=== PATIENT | female | born 1975 | race Native Hawaiian/Other Pacific Islander ===

== ENCOUNTER 2020-11-25 01:00 | Emergency (ER) | payer BC, SELFPAY ==
--- NOTE | ~2020-11-25 | CT_ITS ---
EXAMINATION: CT HEAD WITHOUT CONTRAST CLINICAL INFORMATION: numbness COMPARISON: None TECHNIQUE: Contiguous axial imaging was performed from the skull base to vertex without intravenous administration of contrast. This CT examination was performed using dose optimization techniques as appropriate, variously including the following: *Automated exposure control *Adjustment of mA and/or kV according to patient size (this includes techniques or standardized protocols for targeted exams where dose is matched to indication/reason for exam; i.e. extremities or head) *Use of iterative reconstruction technique DLP: 733 mGy-cm FINDINGS: There is no evidence of acute intracranial hemorrhage or territorial infarction. No abnormal mass effect or midline shift is seen. [place] to white matter differentiation is well preserved. No extra-axial fluid collections are identified. The ventricles are normal in size. There is no abnormal attenuation within the brain parenchyma. The osseous structures and soft tissues are normal. The mastoid air cells and visualized portions of the paranasal sinuses are well aerated. CT/CT head/brain wo con IMPRESSION: No acute intracranial pathology.
[2020-11-25 01:09] VITALS: BP 140/67; PULSE 99; RESP 18; TEMP 36.4; O2SAT 100; BMI 34.7
[2020-11-25 01:32] VITALS: BP 136/81; PULSE 93; RESP 18; TEMP 36.4; O2SAT 100
--- NOTE | 2020-11-25 02:08 | PC.NURSE ---
This RN at bedside with MD for primary eval. Pt reports intermittent left sided numbness for 1 month, worsening this last week causing her some anxiety today. Pt denies being evaluated by MD for numbness. Neuro exam unremarkable, pt speaking full clear sentences, ambulating with a banuelos/steady gait to the bathroom to provide urine sample. Continue to monitor.
--- NOTE | 2020-11-25 02:10 | ECG_ITS ---
Test Reason : NUMBNESS Blood Pressure : / mmHG Vent. Rate : 090 BPM Atrial Rate : 090 BPM P-R Int : 162 ms QRS Dur : 086 ms QT Int : 384 ms P-R-T Axes : 043 -06 014 degrees QTc Int : 469 ms Normal sinus rhythm Minimal voltage criteria for LVH, may be normal variant Borderline ECG When compared with ECG of 21-JUL-2019 05:34, No significant change was found Referred By: Micaela Sparks Electronically Signed By:DEONDRE HAY MD
[2020-11-25 02:24] LABS: Basophils Absolute Auto 0.1 X10*3/uL (0.0-0.2); Basophils Percent Auto 0.5 % (0-2); Eosinophils Absolute Auto 0.1 X10*3/uL (0.0-0.4); Eosinophils Percent Auto 1.4 % (0-4); Hematocrit 36.8 % (37-47); Hemoglobin 11.9 g/dl (12.0-16.0); Imm Gran Abs Auto 0.02 X10*3/uL (0.00-0.03); Imm Gran Pct Auto 0.2 % (0.0-0.4); Lymphocytes Absolute Auto 3.5 X10*3/uL (1.2-4.9); Lymphocytes Percent Auto 35.4 % (20-40); MANUAL DIFF FLAG NO; Mean Corpuscular HGB Conc 32.3 g/dl (31.0-35.0); Mean Corpuscular Hemoglobin 28.7 pg (27.0-33.0); Mean Corpuscular Volume 88.7 fL (80-98); Monocytes Absolute Auto 0.5 X10*3/uL (0.1-1.2); Monocytes Percent Auto 5.1 % (2-11); Neutrophils Absolute Auto 5.6 X10*3/uL (2.0-8.3); Neutrophils Percent Auto 57.4 % (45-73); Platelet Count 306 X10*3/uL (160-400); Red Blood Count 4.15 X10*6/uL (4.20-5.50); Red Cell Distribution Width 13.2 % (11.0-16.0); White Blood Count 9.8 X10*3/uL (4.8-10.8)
[2020-11-25 02:25] LABS: Glucose Urine UA NEG (NEG); Leukocyte Esterase Urine NEG (NEG); Nitrite Urine NEG (NEG); Specific Gravity - Urine 1.015 (1.005-1.025); Urine Blood TRACE (NEG); Urine Ketones NEG (NEG); Urine Protein NEG (NEG-TRACE)
[2020-11-25 02:26] LABS: Appearance Urine CLEAR; Color Urine YELLOW
--- NOTE | 2020-11-25 02:26 | PC.NURSE ---
IV established, labs and urine obtained and sent. EKG obtained by this RN. Pt resting in bed, reporting numbness to left hand and fingers only at this time, denies pain. VSS. Call remy within reach, continue to monitor.
[2020-11-25 02:27] VITALS: PULSE 91; RESP 16; O2SAT 96
[2020-11-25 02:29] LABS: Bacteria Urine 1+ /LPF; Mucus Urine 1+ /LPF; Squamous Epithelial Cell Urine 1+ /LPF
[2020-11-25 02:57] LABS: Anion Gap 13 (12-20); Blood Urea Nitrogen 13 mg/dL (9-16); Calcium 9.6 mg/dL (8.4-10.2); Carbon Dioxide 27 mmol/L (22-29); Chloride 102 mmol/L (96-108); Creatinine Clr Calc Pharmacy 102.3; Estimated Glomerular Filt Rate > 60; Glucose Random 118 mg/dL (60-115); Potassium 3.6 mmol/L (3.3-5.1); Sodium 138 mmol/L (135-145)
--- NOTE | 2020-11-25 03:07 | ED.GENADULT ---
HPI - General Adult General Chief complaint: General Medical Stated complaint: PANIC ATTACK Time Seen by Provider: 11/25/20 02:09 Related Data Home Medications Medication Instructions Recorded Confirmed No Known Home Meds 11/25/20 11/25/20 Allergies Allergy/AdvReac Type Severity Reaction Status Date / Time latex [LATEX] Allergy Intermediate ITCHY NO Verified 11/25/20 01:08 SOB PMFSH Past Medical History Medical History (Updated 11/25/20 @ 03:28 by Micaela Sparks MD) delivery delivered Surgical History (Updated 11/25/20 @ 01:15 by Gurinder Leonard RN) H/O: hysterectomy Social History Social History Alcohol intake: never Smoking Status: Never smoker Use of substances other than those prescribed or required for medical reasons: No Advance Directives: No Advance Directives Information Provided: No Physical Exam Vital Signs: Vital Signs: Last Vital Signs Temp 97.6 F 11/25/20 01:32 Pulse 91 11/25/20 02:27 Resp 16 11/25/20 02:27 BP 136/81 11/25/20 01:32 Pulse Ox 96 11/25/20 02:27 Body Mass Index 34.7 NIH Stroke Scale Internal: Initial- Upon Arrival Level of Consciousness: Alert Level of Consciousness Questions: Answers both questions correctly Level of Consciousness Commands: Performs both tasks correctly Best Gaze: Normal Visual: No visual loss Facial Palsy: Normal Motor Arm (Right): No drift Motor Arm (Left): No drift Motor Leg (Right): No drift Motor Leg (Left): No drift Limb Ataxia: Absent Sensory: Normal Best Language: No aphasia Dysarthia: Normal Extinction and Inattention: No abnormality Score: 0 Medical Decision Making MDM Narrative Medical decision making narrative: Patient's tingling as been ongoing for a month. Question etiology. Patient neurologically intact. NIH stroke scale was 0. CT scan of the head was negative. Electrolytes unremarkable. Will have patient follow-up with neurology on an outpatient basis. Currently in stable condition. Lab Data Result diagrams: 11/25/20 02:14 11/25/20 02:14 Labs: Lab Results 11/25/20 11/25/20 11/25/20 Range/Units 02:14 02:14 02:14 WBC 9.8 (4.8-10.8) X10*3/uL RBC 4.15 L (4.20-5.50) X10*6/uL Hgb 11.9 L (12.0-16.0) g/dl Hct 36.8 L (37-47) % MCV 88.7 (80-98) fL MCH 28.7 (27.0-33.0) pg MCHC 32.3 (31.0-35.0) g/dl RDW 13.2 (11.0-16.0) % Plt Count 306 (160-400) X10*3/uL MPV 11.0 (9.4-12.3) fL Immature Gran % (Auto) 0.2 (0.0-0.4) % Neut % (Auto) 57.4 (45-73) % Lymph % (Auto) 35.4 (20-40) % [place] % (Auto) 5.1 (2-11) % Eos % (Auto) 1.4 (0-4) % Baso % (Auto) 0.5 (0-2) % Lymph # (Auto) 3.5 (1.2-4.9) X10*3/uL [place] # (Auto) 0.5 (0.1-1.2) X10*3/uL Eos # (Auto) 0.1 (0.0-0.4) X10*3/uL Baso # (Auto) 0.1 (0.0-0.2) X10*3/uL Abs Immat Gran (auto) 0.02 (0.00-0.03) X10*3/uL Absolute Neuts (auto) 5.6 (2.0-8.3) X10*3/uL Absolute Nucleated RBC 0.000 (0.0-0.012) X10*3/uL Nucleated RBC % (auto) 0.0 (0.0-0.2) /100WBC Sodium 138 (135-145) mmol/L Potassium 3.6 (3.3-5.1) mmol/L Chloride 102 (96-108) mmol/L Carbon Dioxide 27 (22-29) mmol/L Anion Gap 13 (12-20) BUN 13 (9-16) mg/dL Creatinine 0.70 (0.5-1.4) mg/dL Estim Creat Clear Calc 102.3 Estimated GFR > 60 Random Glucose 118 H (60-115) mg/dL Calcium 9.6 (8.4-10.2) mg/dL Magnesium 2.0 (1.6-2.6) mg/dL Urine Color YELLOW Urine Appearance CLEAR Urine pH 6.0 (5.0-8.0) Ur Specific [place] 1.015 (1.005-1.025) Urine Protein NEG (NEG-TRACE) MG/DL Urine Glucose (UA) NEG (NEG) MG/DL Urine Ketones NEG (NEG) MG/DL Urine Blood TRACE (NEG) Urine Nitrite NEG (NEG) Ur Leukocyte Esterase NEG (NEG) Urine RBC 1-4 (0) /HPF Urine WBC 1-4 (0-4) /HPF Ur Squamous Epith Cells 1+ /LPF Urine Bacteria 1+ /LPF Urine Mucus 1+ /LPF Discharge Plan Discharge Clinical Impression: Anxiety, Neurapraxia Patient Disposition: Home, Self-Care Instructions: Anxiety (ED), Neurapraxia (ED) Prescriptions: No Action No Known Home Meds RF: 0 Referrals: Kimberly Hernandez MD [Physician] - 2 days
[2020-11-25 03:40] VITALS: BP 136/81; PULSE 81; RESP 18; O2SAT 98
== END 2020-11-25 03:40 | disposition home or self-care (01) ==
PROVIDERS: Emergency Provider Emergency Medicine Emergency Medical Services
DX: S64.92XA Injury of unspecified nerve at wrist and hand level of left arm, initial encounter (principal); X58.XXXA Exposure to other specified factors, initial encounter; F41.9 Anxiety disorder, unspecified; Y93.9 Activity, unspecified; Y92.9 Unspecified place or not applicable; Y99.9 Unspecified external cause status
CPT/HCPCS: 36415; 70450; 80048; 81001; 83735; 85025; 93005; 99284

== ENCOUNTER 2020-12-25 07:12 | Emergency (ER) | payer BC, SELFPAY ==
--- NOTE | ~2020-12-25 | CT_ITS ---
EXAMINATION: CT ABDOMEN AND PELVIS WITH CONTRAST CLINICAL INFORMATION: Right upper quadrant and epigastric pain. History of pancreatitis. COMPARISON: Several priors. Most recent of 12/23/19. TECHNIQUE: Multidetector volumetric images were obtained from the superior aspect of the liver through the pubic symphysis following administration 85 mL of Omnipaque 350 intravenous contrast. Sagittal and coronal reformatted images were obtained on the technologist's workstation. Oral contrast: No This CT examination was performed using dose optimization techniques as appropriate, variously including the following: *Automated exposure control *Adjustment of mA and/or kV according to patient size (this includes techniques or standardized protocols for targeted exams where dose is matched to indication/reason for exam; i.e. extremities or head) *Use of iterative reconstruction technique DLP: 890 mGy-cm FINDINGS: LUNG BASES: The visualized lung bases are unremarkable. LIVER, GALLBLADDER, AND BILIARY TREE: Diffuse low-attenuation the liver is consistent with hepatic steatosis. The liver is mildly enlarged. No focal lesion demonstrated. There has been previous cholecystectomy. Mildly dilated CBD is unchanged and consistent with prior cholecystectomy. PANCREAS: Unremarkable. There is normal parenchymal enhancement. No peripancreatic fluid. SPLEEN: Unremarkable. ADRENAL GLANDS: There is a focal lesion of the lateral limb of the left adrenal gland measuring 1.2 cm. This measures soft tissue density. The adrenal glands are otherwise unremarkable. KIDNEYS AND URETERS: The kidney has a relatively horizontal lie. The kidneys otherwise are normal in size and appearance with normal attenuation. No hydronephrosis or calculi. No focal parenchymal lesions. BLADDER: Unremarkable. GASTROINTESTINAL TRACT: The stomach and duodenum are unremarkable. No abnormality of the small bowel or mesentery is demonstrated. There is colonic diverticular disease. No evidence for acute diverticulitis. The colon is otherwise unremarkable. The appendix is normal. ABDOMINAL WALL: There is a small fat-containing left femoral hernia. There is diastases of the rectus muscle without significant hernia. LYMPH NODES: Normal. VASCULAR: Unremarkable. PELVIC VISCERA: There is been previous hysterectomy. The adnexa are unremarkable. No free fluid. OSSEOUS STRUCTURES: Unremarkable. CT/CT abdomen pelvis w con IMPRESSION: 1. Hepatic steatosis. Mild hepatomegaly. 2. Unremarkable appearance of the pancreas. No radiographic changes of pancreatitis. 3. Small indeterminate left adrenal lesion. Suggest dedicated triphasic CT scan or MRI in further assess. 4. Colonic diverticular disease with no evidence for acute diverticulitis.
[2020-12-25 07:25] VITALS: BP 136/80; PULSE 89; RESP 15; TEMP 36.8; O2SAT 100; BMI 34.7
--- NOTE | 2020-12-25 07:57 | ED.ABDPAIN ---
HPI - Abdominal Pain General Chief Complaint: Abdominal Pain Stated Complaint: UPPER ABD PAIN Time Seen by Provider: 12/25/20 07:45 Source: patient Mode of arrival: ambulatory Limitations: no limitations History of Present Illness HPI narrative: 45 yo female 3 days of epigastric pain radiating to back hx of pancreatitis but that was related to stones from GB and she is s/p lap ronaldo c/o nausea and diarrhea, feels similar to her prior pancreatitis MD elicited complaint: abdominal pain Pertinent past history: other (pancreatitis) Onset (ago): day(s) (3) Pain Consistency: constant Location: epigastric Severity: moderate Quality: stabbing Radiation: back Migration to: no migration Exacerbating factors: eating and movement Relieving factors: nothing Context: history of similar episodes Associated symptoms: nausea and diarrhea Related Data Previous Rx's Medication Instructions Recorded omeprazole 40 mg PO DAILY 14 Days #14 cap 12/25/20 ondansetron 4 mg PO Q8H PRN #20 tab 12/25/20 Allergies Allergy/AdvReac Type Severity Reaction Status Date / Time latex [LATEX] Allergy Intermediate ITCHY NO Verified 11/25/20 01:08 SOB Review of Systems Review of Systems Constitutional : No Weight loss, No Fever, No Chills ENT/Mouth : No sore throat, No Rhinorrhea Eyes: No Swelling, No Redness Cardiovascular : No Chest Pain, No SOB, NoEdema Respiratory : No Cough, No Sputum, No Wheezing Gastrointestinal : Positive Nausea, no Vomiting, positive Diarrhea, positive abdominal Pain, No Hematochezia, No Melena Genitourinary : No Dysuria, No Urinary Frequency, No Hematuria, No Urgency Musculoskeletal : No joint pain, No Myalgias, No Joint Swelling Skin : No Skin Lesions, No rash Neuro : No Weakness, No Numbness, No Dizziness, No Headache Psych : No Anxiety/Panic, No Depression Heme/Lymph: No Bruising, No Lymphadenopathy Endocrine : No Polyuria, No Polydipsia All other systems reviewed and are negative. Physical Exam Vital Signs: Vital Signs: Last Vital Signs Temp 99.0 F 12/25/20 10:52 Pulse 77 12/25/20 10:52 Resp 18 12/25/20 10:52 BP 125/73 12/25/20 10:52 Pulse Ox 100 12/25/20 10:52 Body Mass Index 34.7 Appearance: Alert. Oriented X3. No acute distress. Eyes: Pupils equal, round and reactive to light. ENT: Pharynx normal. Neck: Normal inspection. Neck supple. CVS: Normal heart rate and rhythm. Pulses normal. Respiratory: No respiratory distress. Breath sounds normal. Abdomen: Soft and moderate epigastric ttp no rebound, mild vol guarding Skin: Skin warm and dry. Normal skin color. Normal skin turgor. Extremities: No lower extremity edema. No calf ttp Neuro: Oriented X 3. No motor deficit. No sensory deficit. Course Course Course Narrative: stable labs, negative CT scan at this time, anticipate DC home will attempt GI cocktail. feels much better with GI cocktail will place on PPI for 2 weeks discussed possible h pylori testing with PCP MDM - Abdominal Pain MDM Narrative Medical decision making narrative: 45 yo female with hx of pancreatitis s/p lap ronaldo comes in with 3 days of nausea, diarrhea and epigastric pain radiating to her back feels similar to her prior pancreatitis - will obtain labs, CT scan for pancreatitis retained stone Differential Diagnosis Differential diagnosis: Likely abdominal pain, gastritis and pancreatitis; Unlikely aortic dissection and acute appendicitis Lab Data Result diagrams: 12/25/20 08:02 12/25/20 08:02 Labs: Lab Results 12/25/20 12/25/20 12/25/20 Range/Units 08:02 08:02 08:02 WBC 7.9 (4.8-10.8) X10*3/uL RBC 4.54 (4.20-5.50) X10*6/uL Hgb 13.1 (12.0-16.0) g/dl Hct 39.6 (37-47) % MCV 87.2 (80-98) fL MCH 28.9 (27.0-33.0) pg MCHC 33.1 (31.0-35.0) g/dl RDW 12.7 (11.0-16.0) % Plt Count 317 (160-400) X10*3/uL MPV 11.4 (9.4-12.3) fL Immature Gran % (Auto) 0.4 (0.0-0.4) % Neut % (Auto) 54.9 (45-73) % Lymph % (Auto) 37.3 (20-40) % [place] % (Auto) 4.8 (2-11) % Eos % (Auto) 2.0 (0-4) % Baso % (Auto) 0.6 (0-2) % Lymph # (Auto) 3.0 (1.2-4.9) X10*3/uL [place] # (Auto) 0.4 (0.1-1.2) X10*3/uL Eos # (Auto) 0.2 (0.0-0.4) X10*3/uL Baso # (Auto) 0.1 (0.0-0.2) X10*3/uL Abs Immat Gran (auto) 0.03 (0.00-0.03) X10*3/uL Absolute Neuts (auto) 4.4 (2.0-8.3) X10*3/uL Absolute Nucleated RBC 0.000 (0.0-0.012) X10*3/uL Nucleated RBC % (auto) 0.0 (0.0-0.2) /100WBC Hold Blue Top SEE NOTE Sodium 140 (135-145) mmol/L Potassium 4.2 (3.3-5.1) mmol/L Chloride 104 (96-108) mmol/L Carbon Dioxide 25 (22-29) mmol/L Anion Gap 15 (12-20) BUN 13 (9-16) mg/dL Creatinine 0.71 (0.5-1.4) mg/dL Estim Creat Clear Calc 100.8 Estimated GFR > 60 Random Glucose 124 H (60-115) mg/dL Calcium 10.0 (8.4-10.2) mg/dL Magnesium 1.8 (1.6-2.6) mg/dL Total Bilirubin 0.5 (0.0-1.0) mg/dL Direct Bilirubin < 0.2 (0.0-0.5) mg/dL AST 16 (5-31) U/L ALT 21 (0-31) U/L Alkaline Phosphatase 95 (39-117) U/L Total Protein 7.7 (6.5-8.0) g/dL Albumin 4.5 (3.5-5.0) g/dL Lipase 19 (8-78) U/L Urine Color Urine Appearance Urine pH (5.0-8.0) Ur Specific [place] (1.005-1.025) Urine Protein (NEG-TRACE) MG/DL Urine Glucose (UA) (NEG) MG/DL Urine Ketones (NEG) MG/DL Urine Blood (NEG) Urine Nitrite (NEG) Ur Leukocyte Esterase (NEG) Urine Test (NEGATIVE) 12/25/20 12/25/20 Range/Units 08:02 08:02 WBC (4.8-10.8) X10*3/uL RBC (4.20-5.50) X10*6/uL Hgb (12.0-16.0) g/dl Hct (37-47) % MCV (80-98) fL MCH (27.0-33.0) pg MCHC (31.0-35.0) g/dl RDW (11.0-16.0) % Plt Count (160-400) X10*3/uL MPV (9.4-12.3) fL Immature Gran % (Auto) (0.0-0.4) % Neut % (Auto) (45-73) % Lymph % (Auto) (20-40) % [place] % (Auto) (2-11) % Eos % (Auto) (0-4) % Baso % (Auto) (0-2) % Lymph # (Auto) (1.2-4.9) X10*3/uL [place] # (Auto) (0.1-1.2) X10*3/uL Eos # (Auto) (0.0-0.4) X10*3/uL Baso # (Auto) (0.0-0.2) X10*3/uL Abs Immat Gran (auto) (0.00-0.03) X10*3/uL Absolute Neuts (auto) (2.0-8.3) X10*3/uL Absolute Nucleated RBC (0.0-0.012) X10*3/uL Nucleated RBC % (auto) (0.0-0.2) /100WBC Hold Blue Top Sodium (135-145) mmol/L Potassium (3.3-5.1) mmol/L Chloride (96-108) mmol/L Carbon Dioxide (22-29) mmol/L Anion Gap (12-20) BUN (9-16) mg/dL Creatinine (0.5-1.4) mg/dL Estim Creat Clear Calc Estimated GFR Random Glucose (60-115) mg/dL Calcium (8.4-10.2) mg/dL Magnesium (1.6-2.6) mg/dL Total Bilirubin (0.0-1.0) mg/dL Direct Bilirubin (0.0-0.5) mg/dL AST (5-31) U/L ALT (0-31) U/L Alkaline Phosphatase (39-117) U/L Total Protein (6.5-8.0) g/dL Albumin (3.5-5.0) g/dL Lipase (8-78) U/L Urine Color YELLOW Urine Appearance CLEAR Urine pH 6.0 (5.0-8.0) Ur Specific [place] >= 1.030 H (1.005-1.025) Urine Protein NEG (NEG-TRACE) MG/DL Urine Glucose (UA) NEG (NEG) MG/DL Urine Ketones NEG (NEG) MG/DL Urine Blood NEG (NEG) Urine Nitrite NEG (NEG) Ur Leukocyte Esterase NEG (NEG) Urine Test NEGATIVE (NEGATIVE) Discharge Plan Discharge Clinical Impression: Abdominal pain Qualifiers: Abdominal location: epigastric Qualified Code(s): R10.13 - Epigastric pain Gastritis Qualifiers: Gastritis type: unspecified gastritis Chronicity: acute Gastritis bleeding: without bleeding Qualified Code(s): K29.00 - Acute gastritis without bleeding Patient Disposition: Home, Self-Care Instructions: Gastritis (ED) Additional Instructions: return to ED for any worsening symptoms or concerns if this continues please get h pylori testing Prescriptions: New ondansetron 4 mg tablet,disintegrating 4 mg PO Q8H PRN (Reason: nausea and vomiting) Qty: 20 RF: 0 omeprazole 40 mg capsule,delayed release(DR/EC) 40 mg PO DAILY 14 Days Qty: 14 RF: 0 Referrals: Physician,None [Primary Care Provider] - 1 week (if not better) [facility], [facility] Past Medical History Attestation statement: The following information was validated with the patient. Medical History delivery delivered Pancreatitis Surgical History H/O: hysterectomy History of cholecystectomy Social History Social History Alcohol intake: never Smoking Status: Never smoker Advance Directives: No Advance Directives Information Provided: No
[2020-12-25 08:11] LABS: MANUAL DIFF FLAG NO
[2020-12-25 08:12] LABS: Appearance Urine CLEAR; Basophils Absolute Auto 0.1 X10*3/uL (0.0-0.2); Basophils Percent Auto 0.6 % (0-2); Color Urine YELLOW; Eosinophils Absolute Auto 0.2 X10*3/uL (0.0-0.4); Glucose Urine UA NEG (NEG); Hematocrit 39.6 % (37-47); Hemoglobin 13.1 g/dl (12.0-16.0); Imm Gran Abs Auto 0.03 X10*3/uL (0.00-0.03); Imm Gran Pct Auto 0.4 % (0.0-0.4); Leukocyte Esterase Urine NEG (NEG); Lymphocytes Percent Auto 37.3 % (20-40); Mean Corpuscular HGB Conc 33.1 g/dl (31.0-35.0); Mean Corpuscular Hemoglobin 28.9 pg (27.0-33.0); Mean Corpuscular Volume 87.2 fL (80-98); Mean Platelet Volume 11.4 fL (9.4-12.3); Monocytes Absolute Auto 0.4 X10*3/uL (0.1-1.2); Monocytes Percent Auto 4.8 % (2-11); Neutrophils Absolute Auto 4.4 X10*3/uL (2.0-8.3); Neutrophils Percent Auto 54.9 % (45-73); Nitrite Urine NEG (NEG); Platelet Count 317 X10*3/uL (160-400); Red Blood Count 4.54 X10*6/uL (4.20-5.50); Red Cell Distribution Width 12.7 % (11.0-16.0); Specific Gravity - Urine >= 1.030 (1.005-1.025); Urine Blood NEG (NEG); Urine Ketones NEG (NEG); Urine Protein NEG (NEG-TRACE); White Blood Count 7.9 X10*3/uL (4.8-10.8)
[2020-12-25] MEDS: Ketorolac Tromethamine 30 MG/ML VIAL IVPUSH (08:12)
[2020-12-25] MEDS: 0.9 % Sodium Chloride 1,000 ML 999 ML IVCONT ×2 (08:12→08:45)
[2020-12-25] MEDS: ondansetron HCL 4 MG/2 ML VIAL IVPUSH (08:12)
[2020-12-25 08:13] LABS: UPreg QC Valid YES; Urine Pregnancy NEGATIVE (NEGATIVE)
[2020-12-25 08:39] LABS: Alanine Aminotransferase 21 U/L (0-31); Albumin Level 4.5 g/dL (3.5-5.0); Alkaline Phosphatase 95 U/L (39-117); Anion Gap 15 (12-20); Aspartate Amino Transferase 16 U/L (5-31); Bilirubin Direct < 0.2 mg/dL (0.0-0.5); Bilirubin Total 0.5 mg/dL (0.0-1.0); Blood Urea Nitrogen 13 mg/dL (9-16); Carbon Dioxide 25 mmol/L (22-29); Chloride 104 mmol/L (96-108); Creatinine Clr Calc Pharmacy 100.8; Estimated Glomerular Filt Rate > 60; Glucose Random 124 mg/dL (60-115); Lipase 19 U/L (8-78); Magnesium 1.8 mg/dL (1.6-2.6); Potassium 4.2 mmol/L (3.3-5.1); Sodium 140 mmol/L (135-145); Total Protein 7.7 g/dL (6.5-8.0)
[2020-12-25] MEDS: Morphine Sulfate 4 MG/ML CARTRIDGE IVPUSH (08:41)
[2020-12-25] MEDS: iohexoL 350 MG/ML 100 ML INFUS..BTL IV (10:47)
[2020-12-25 10:52] VITALS: BP 125/73; PULSE 77; RESP 18; TEMP 37.2; O2SAT 100
[2020-12-25] MEDS: Lidocaine HCl Viscous 2 % 15 ML SOLUTION MUCOUS MEM (11:38)
[2020-12-25] MEDS: Magnesium Hydrox/Alum Hydrox 30 ML ORAL.SUSP PO (11:38)
== END 2020-12-25 12:04 | disposition home or self-care (01) ==
PROVIDERS: Emergency Provider Emergency Medicine
DX: K29.00 Acute gastritis without bleeding (principal); R10.13 Epigastric pain
CPT/HCPCS: 36415; 74177; 80048; 80076; 81003; 81025; 83690; 83735; 85025; 96361; 96374; 96375; 99284; J1885; J2270; J2405; Q9967

== ENCOUNTER 2020-12-28 18:43 | Emergency (ER) | payer BC, SELFPAY ==
[2020-12-28 19:05] VITALS: BP 128/67; PULSE 100; RESP 18; TEMP 36.8; O2SAT 99; BMI 34.7
--- NOTE | 2020-12-28 19:10 | PC.NURSE ---
pt states she does not want to give a urine sample at this time, pt also stated that she was just here and all her information is in the computer and to look in the computer
[2020-12-28 19:38] LABS: MANUAL DIFF FLAG NO
[2020-12-28 19:41] LABS: Basophils Absolute Auto 0.1 X10*3/uL (0.0-0.2); Basophils Percent Auto 0.7 % (0-2); Eosinophils Absolute Auto 0.1 X10*3/uL (0.0-0.4); Eosinophils Percent Auto 1.6 % (0-4); Hematocrit 42.3 % (37-47); Hemoglobin 13.7 g/dl (12.0-16.0); Imm Gran Abs Auto 0.01 X10*3/uL (0.00-0.03); Imm Gran Pct Auto 0.1 % (0.0-0.4); Lymphocytes Absolute Auto 3.1 X10*3/uL (1.2-4.9); Lymphocytes Percent Auto 36.6 % (20-40); Mean Corpuscular HGB Conc 32.4 g/dl (31.0-35.0); Mean Corpuscular Hemoglobin 28.4 pg (27.0-33.0); Mean Corpuscular Volume 87.8 fL (80-98); Mean Platelet Volume 11.1 fL (9.4-12.3); Monocytes Absolute Auto 0.4 X10*3/uL (0.1-1.2); Monocytes Percent Auto 5.1 % (2-11); Neutrophils Absolute Auto 4.8 X10*3/uL (2.0-8.3); Neutrophils Percent Auto 55.9 % (45-73); Platelet Count 328 X10*3/uL (160-400); Red Blood Count 4.82 X10*6/uL (4.20-5.50); Red Cell Distribution Width 12.4 % (11.0-16.0); White Blood Count 8.6 X10*3/uL (4.8-10.8)
[2020-12-28 20:19] LABS: Alanine Aminotransferase 33 U/L (0-31); Alkaline Phosphatase 86 U/L (39-117); Anion Gap 16 (12-20); Aspartate Amino Transferase 29 U/L (5-31); Bilirubin Total 0.6 mg/dL (0.0-1.0); Blood Urea Nitrogen 8 mg/dL (9-16); Calcium 10.3 mg/dL (8.4-10.2); Carbon Dioxide 26 mmol/L (22-29); Chloride 100 mmol/L (96-108); Creatinine Clr Calc Pharmacy 94.2; Estimated Glomerular Filt Rate > 60; Glucose Random 135 mg/dL (60-115); Potassium 4.6 mmol/L (3.3-5.1); Sodium 137 mmol/L (135-145); Total Protein 8.3 g/dL (6.5-8.0)
== END 2020-12-28 19:45 | disposition left against medical advice (07) ==
PROVIDERS: Emergency Provider Emergency Medicine
DX: R10.9 Unspecified abdominal pain (principal)
CPT/HCPCS: 36415; 80053; 85025; 99282; 99283

== ENCOUNTER 2021-07-01 18:50 | Emergency (ER) | payer BC, SELFPAY ==
--- NOTE | ~2021-07-01 | CT_ITS ---
EXAMINATION: CT ANGIOGRAM OF THE CHEST WITH AND WITHOUT CONTRAST (CT PULMONARY ANGIOGRAM FOR PE) CLINICAL INFORMATION: Reason for Exam near syncope ekg changes pos d dimer COMPARISON: 12/24/2017 TECHNIQUE: Prior to contrast administration, noncontrast localization images were obtained. Subsequently, multidetector volumetric imaging was performed from the thoracic inlet to below the diaphragms following the administration of 70 mL Omnipaque 350 intravenous contrast. No contrast reaction reported Sagittal, coronal, and MIP oblique sagittal reformatted images were obtained on the CT workstation, uploaded to PACS, and reviewed. This CT examination was performed using dose optimization techniques as appropriate, variously including the following: *Automated exposure control *Adjustment of mA and/or kV according to patient size (this includes techniques or standardized protocols for targeted exams where dose is matched to indication/reason for exam; i.e. extremities or head) *Use of iterative reconstruction technique Total exam dose-length product 451 mGy-cm FINDINGS: QUALITY OF STUDY/CONTRAST BOLUS: Satisfactory. PULMONARY ARTERIES: No central or segmental pulmonary emboli. THORACIC AORTA: No aneurysm or dissection. LUNG: No focal consolidation, nodules or masses. PLEURA: No pleural effusion or pneumothorax. MEDIASTINUM: Normal heart size. No pericardial effusion. No hilar or mediastinal lymphadenopathy. No evidence of septal bowing or right heart strain. CHEST WALL/AXILLA: No axillary or internal mammary lymphadenopathy. OSSEOUS STRUCTURES: No acute or suspicious osseous abnormality. UPPER ABDOMEN: Hepatic steatosis. Cholecystectomy. 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 No reflux of contrast into the hepatic veins to suggest elevated right heart pressures. CT/CT angio chest PE protocol IMPRESSION: * No pulmonary embolism. * No aortic aneurysm or dissection. * Lungs are clear. * Hepatic steatosis. VTE: negative
[2021-07-01 18:51] VITALS: BP 141/82; PULSE 87; RESP 16; TEMP 36.5; O2SAT 98; BMI 35.6
[2021-07-01 19:06] LABS: Glucose, Whole Blood 97 mg/dL (60-115)
[2021-07-01 19:12] LABS: Appearance Urine CLEAR; Color Urine STRAW; Glucose Urine UA NEG (NEG); Leukocyte Esterase Urine NEG (NEG); Nitrite Urine NEG (NEG); Specific Gravity - Urine 1.015 (1.005-1.025); Urine Blood NEG (NEG); Urine Ketones NEG (NEG); Urine Protein NEG (NEG-TRACE)
--- NOTE | 2021-07-01 19:20 | PC.NURSE ---
Addendum entered by Nicki Strickland 07/01/21 19:33: test cancelled as pt has a hx of a partial hysterectomy including removal of her uterus. Original Note: UA obtained and sent.
--- NOTE | 2021-07-01 19:45 | ECG_ITS ---
Test Reason : DIZINESS Blood Pressure : / mmHG Vent. Rate : 087 BPM Atrial Rate : 087 BPM P-R Int : 164 ms QRS Dur : 086 ms QT Int : 378 ms P-R-T Axes : 000 193 175 degrees QTc Int : 454 ms Normal sinus rhythm Right superior axis deviation T wave abnormality, consider inferior ischemia Abnormal ECG limb lead reversal-advise repeat study Referred By: Yobany Nails Electronically Signed By:JENELLE ATKINS MD
--- NOTE | 2021-07-01 19:46 | ED_ITS ---
HPI - General Adult General Chief complaint: Dizziness Stated complaint: Multiple complaints Time Seen by Provider: 07/01/21 19:45 Source: patient Limitations: no limitations History of Present Illness HPI narrative: This is a 45-year-old female with a history of anxiety, who has noted today that she has had episodes of feeling lightheaded and seeing spots in her vision, also feeling tingling in both of her hands at the fingertips. The patient is concerned she could be having a panic attack, though she states that she has no reason to have an anxiety attack. She did start a new job recently, which she states she enjoys, and is paid well for. She has had mild intermittent headaches recently, denies any headache now. She denies any nausea vomiting, has had few episodes of diarrhea today. She denies any chest pain or shortness of breath, though she states that sometimes she feels she needs to take a deep breath. She denies abdominal pain or any numbness or tingling in her feet or legs. She denies any unsteadiness with walking. Patient did initially feel like she was going to black out. Related Data Previous Rx's Medication Instructions Recorded omeprazole 40 mg capsule,delayed 40 mg PO DAILY 14 Days #14 cap 12/25/20 release ondansetron 4 mg disintegrating 4 mg PO Q8H PRN #20 tab 12/25/20 tablet Allergies Allergy/AdvReac Type Severity Reaction Status Date / Time latex [LATEX] Allergy Intermediate ITCHY NO Verified 07/01/21 18:59 SOB Review of Systems 2 Review of Systems: Yes all other systems are reviewed and are negative Constitutional: Constitutional: Reports as per HPI, Denies fever(s) and Reports headache(s) (Intermittent, gone now) Eyes: Eyes: Reports as per HPI and Reports no additional eye complaints ENT: Reports system reviewed and no additional complaints, except as docu mented, Reports as per HPI, Reports dizziness, Reports headache(s) (Intermittent, gone now), Denies nasal congestion, Denies nasal discharge and Denies sore throat Cardiovascular: Cardiovascular: Reports as per HPI, Denies chest pain, Denies syncope and Denies dyspnea Respiratory: Respiratory: Reports as per HPI, Denies cough and Denies dyspnea Gastrointestinal: Gastrointestinal: Reports as per HPI, Denies abdominal pain, Reports diarrhea and Denies vomiting Genitourinary: Genitourinary: Reports as per HPI, Denies hematuria, Denies urinary frequency and Denies dysuria Musculoskeletal: Musculoskeletal: Reports no additional musculoskeletal complaints and Denies numbness Integumentary/Breasts: Skin/Breast: Reports as per HPI and Denies rash Neurologic: Reports as per HPI, Reports dizziness, Denies syncope, Reports headache(s) (Intermittent, gone now), Denies focal weakness, Denies numbness and Reports paresthesias Psychiatric: Psychiatric: Reports no additional psychiatric complaints and Reports as per HPI Endocrine: Endocrine: Reports no additional endocrine complaints and Reports as per HPI Hematologic/Lymphatic: Hematologic/Lymphatic: Reports no additional hematolo gic/lymphatic complaints, Reports as per HPI and Reports other (No peripheral edema) [facility] Past Medical History Medical History delivery delivered Pancreatitis Surgical History H/O: hysterectomy History of cholecystectomy Social History Social History Alcohol intake: never Advance Directives: No Advance Directives Information Provided: No Patient : No Physical Exam Vital Signs: Vital Signs: Last Vital Signs Temp 98.1 F 07/01/21 22:00 Pulse 94 07/02/21 00:14 Resp 16 07/02/21 00:14 BP 121/68 07/02/21 00:14 Pulse Ox 99 07/02/21 00:14 Body Mass Index 35.6 Medical Decision Making MDM Narrative Medical decision making narrative: Patient with a feeling of spotty vision, paresthesias in her fingertips. Patient has history of anxiety but did not feel that there was a trigger for anything like a panic attack. Patient was borderline tachycardic on exam. Her EKG showed a new right axis deviation compared to prior study from 2019, raising suspicion for pulmonary embolism. The patient states she did feel that she was nearly syncopal earlier. Patient of normal pulse oximetry appeared well clinically, seemed to have symptoms consistent with anxiety, however given the EKG changes, D-dimer was ordered and was mildly elevated. CTA of the chest was negative for pulmonary embolism or any other acute abnormality. Patient did have relief of symptoms with Ativan. CBC and chemistry unremarkable otherwise. Troponin normal Lab Data Lab results reviewed: Yes I reviewed the patient's lab results. Result diagrams: 07/01/21 21:12 07/01/21 21:12 Labs: Lab Results 07/01/21 07/01/21 07/01/21 Range/Units 18:52 19:06 21:12 WBC 11.0 H (4.8-10.8) X10*3/uL RBC 4.29 (4.20-5.50) X10*6/uL Hgb 12.0 (12.0-16.0) g/dl Hct 36.6 L (37-47) % MCV 85.3 (80-98) fL MCH 28.0 (27.0-33.0) pg MCHC 32.8 (31.0-35.0) g/dl RDW 13.2 (11.0-16.0) % Plt Count 301 (160-400) X10*3/uL MPV 11.2 (9.4-12.3) fL Immature Gran % (Auto) 0.3 (0.0-0.4) % Neut % (Auto) 62.3 (45-73) % Lymph % (Auto) 31.5 (20-40) % [place] % (Auto) 4.2 (2-11) % Eos % (Auto) 1.2 (0-4) % Baso % (Auto) 0.5 (0-2) % Lymph # (Auto) 3.5 (1.2-4.9) X10*3/uL [place] # (Auto) 0.5 (0.1-1.2) X10*3/uL Eos # (Auto) 0.1 (0.0-0.4) X10*3/uL Baso # (Auto) 0.1 (0.0-0.2) X10*3/uL Abs Immat Gran (auto) 0.03 (0.00-0.03) X10*3/uL Absolute Neuts (auto) 6.9 (2.0-8.3) X10*3/uL Absolute Nucleated RBC 0.000 (0.0-0.012) X10*3/uL Nucleated RBC % (auto) 0.0 (0.0-0.2) /100WBC D-Dimer NG/ML Sodium (135-145) mmol/L Potassium (3.3-5.1) mmol/L Chloride (96-108) mmol/L Carbon Dioxide (22-29) mmol/L Anion Gap (12-20) BUN (9-16) mg/dL Creatinine (0.5-1.4) mg/dL Estim Creat Clear Calc Estimated GFR POC Glucose 97 (60-115) mg/dL Random Glucose (60-115) mg/dL Calcium (8.4-10.2) mg/dL Total Bilirubin (0.0-1.0) mg/dL AST (5-31) U/L ALT (0-31) U/L Alkaline Phosphatase (39-117) U/L Troponin I High Sens (<3.5-17.0) ng/L Total Protein (6.5-8.0) g/dL Albumin (3.5-5.0) g/dL Urine Color STRAW Urine Appearance CLEAR Urine pH 6.0 (5.0-8.0) Ur Specific [place] 1.015 (1.005-1.025) Urine Protein NEG (NEG-TRACE) MG/DL Urine Glucose (UA) NEG (NEG) MG/DL Urine Ketones NEG (NEG) MG/DL Urine Blood NEG (NEG) Urine Nitrite NEG (NEG) Ur Leukocyte Esterase NEG (NEG) 07/01/21 07/01/21 07/01/21 Range/Units 21:12 21:12 21:12 WBC (4.8-10.8) X10*3/uL RBC (4.20-5.50) X10*6/uL Hgb (12.0-16.0) g/dl Hct (37-47) % MCV (80-98) fL MCH (27.0-33.0) pg MCHC (31.0-35.0) g/dl RDW (11.0-16.0) % Plt Count (160-400) X10*3/uL MPV (9.4-12.3) fL Immature Gran % (Auto) (0.0-0.4) % Neut % (Auto) (45-73) % Lymph % (Auto) (20-40) % [place] % (Auto) (2-11) % Eos % (Auto) (0-4) % Baso % (Auto) (0-2) % Lymph # (Auto) (1.2-4.9) X10*3/uL [place] # (Auto) (0.1-1.2) X10*3/uL Eos # (Auto) (0.0-0.4) X10*3/uL Baso # (Auto) (0.0-0.2) X10*3/uL Abs Immat Gran (auto) (0.00-0.03) X10*3/uL Absolute Neuts (auto) (2.0-8.3) X10*3/uL Absolute Nucleated RBC (0.0-0.012) X10*3/uL Nucleated RBC % (auto) (0.0-0.2) /100WBC D-Dimer 356 NG/ML Sodium 137 (135-145) mmol/L Potassium 4.0 (3.3-5.1) mmol/L Chloride 103 (96-108) mmol/L Carbon Dioxide 25 (22-29) mmol/L Anion Gap 13 (12-20) BUN 11 (9-16) mg/dL Creatinine 0.69 (0.5-1.4) mg/dL Estim Creat Clear Calc 105.2 Estimated GFR > 60 POC Glucose (60-115) mg/dL Random Glucose 106 (60-115) mg/dL Calcium 9.8 (8.4-10.2) mg/dL Total Bilirubin 0.5 (0.0-1.0) mg/dL AST 18 (5-31) U/L ALT 19 (0-31) U/L Alkaline Phosphatase 90 (39-117) U/L Troponin I High Sens < 3.5 (<3.5-17.0) ng/L Total Protein 7.4 (6.5-8.0) g/dL Albumin 4.4 (3.5-5.0) g/dL Urine Color Urine Appearance Urine pH (5.0-8.0) Ur Specific [place] (1.005-1.025) Urine Protein (NEG-TRACE) MG/DL Urine Glucose (UA) (NEG) MG/DL Urine Ketones (NEG) MG/DL Urine Blood (NEG) Urine Nitrite (NEG) Ur Leukocyte Esterase (NEG) Imaging Data CT angio chest: Radiologist's impression: IMPRESSION: *? No pulmonary embolism. *? No aortic aneurysm or dissection. *? Lungs are clear. *? Hepatic steatosis. ? VTE: negative ECG Data Attestation: I personally reviewed and interpreted this ECG as follows: Prior ECG tracings: not available for review Interpretation: .0 sinus rhythm with a rate of 87. Right axis deviation. T-wave inversion in lead 1 and L as well as in lead 2. Report of prior EKG from 2018 w as reviewed and there was only borderline left atrial enlargement on prior EKG. Could not review prior tracing due to [employer] error Discharge Plan Discharge Clinical Impression: Dizziness, Paresthesia, Anxiety Patient Disposition: Home, Self-Care Instructions: Paresthesia (ED), Dizziness (ED), Anxiety (ED) Additional Instructions: Return for any new or worsened symptoms. Follow up with your primary care physician. Prescriptions: No Action ondansetron 4 mg tablet,disintegrating 4 mg PO Q8H PRN (Reason: nausea and vomiting) Qty: 20 RF: 0 omeprazole 40 mg capsule,delayed release(DR/EC) 40 mg PO DAILY 14 Days Qty: 14 RF: 0 Interventions: ED Discharge Assessment Last Done: 07/02/21 00:15 Discharge Date/Time: 07/02/21 00:16
[2021-07-01] MEDS: LORazepam 1 MG TABLET PO (20:26)
[2021-07-01 20:36] VITALS: BP 139/72; PULSE 80
[2021-07-01 20:37] VITALS: BP 149/93; PULSE 79
[2021-07-01 20:38] VITALS: BP 158/82; PULSE 83
[2021-07-01 20:39] VITALS: BP 158/82; PULSE 83; RESP 18; TEMP 36.7; O2SAT 100
[2021-07-01 21:20] LABS: MANUAL DIFF FLAG NO
[2021-07-01 21:21] LABS: Basophils Absolute Auto 0.1 X10*3/uL (0.0-0.2); Basophils Percent Auto 0.5 % (0-2); Eosinophils Absolute Auto 0.1 X10*3/uL (0.0-0.4); Eosinophils Percent Auto 1.2 % (0-4); Hematocrit 36.6 % (37-47); Imm Gran Abs Auto 0.03 X10*3/uL (0.00-0.03); Imm Gran Pct Auto 0.3 % (0.0-0.4); Lymphocytes Absolute Auto 3.5 X10*3/uL (1.2-4.9); Lymphocytes Percent Auto 31.5 % (20-40); Mean Corpuscular HGB Conc 32.8 g/dl (31.0-35.0); Mean Corpuscular Volume 85.3 fL (80-98); Mean Platelet Volume 11.2 fL (9.4-12.3); Monocytes Absolute Auto 0.5 X10*3/uL (0.1-1.2); Monocytes Percent Auto 4.2 % (2-11); Neutrophils Absolute Auto 6.9 X10*3/uL (2.0-8.3); Neutrophils Percent Auto 62.3 % (45-73); Platelet Count 301 X10*3/uL (160-400); Red Blood Count 4.29 X10*6/uL (4.20-5.50); Red Cell Distribution Width 13.2 % (11.0-16.0)
[2021-07-01 21:30] LABS: D Dimer 356 NG/ML
[2021-07-01 21:38] LABS: Alanine Aminotransferase 19 U/L (0-31); Albumin Level 4.4 g/dL (3.5-5.0); Alkaline Phosphatase 90 U/L (39-117); Anion Gap 13 (12-20); Aspartate Amino Transferase 18 U/L (5-31); Bilirubin Total 0.5 mg/dL (0.0-1.0); Blood Urea Nitrogen 11 mg/dL (9-16); Calcium 9.8 mg/dL (8.4-10.2); Carbon Dioxide 25 mmol/L (22-29); Chloride 103 mmol/L (96-108); Creatinine Clr Calc Pharmacy 105.2; Estimated Glomerular Filt Rate > 60; Glucose Random 106 mg/dL (60-115); Sodium 137 mmol/L (135-145); Total Protein 7.4 g/dL (6.5-8.0)
[2021-07-01 21:41] LABS: Troponin-I High Sensitivity < 3.5 ng/L (<3.5-17.0)
[2021-07-01 22:00] VITALS: BP 126/63; PULSE 99; RESP 20; TEMP 36.7; O2SAT 97
[2021-07-01] MEDS: iohexoL 350 MG/ML 100 ML INFUS..BTL IV (22:35)
[2021-07-02 00:14] VITALS: BP 121/68; PULSE 94; RESP 16; O2SAT 99
== END 2021-07-02 00:16 | disposition home or self-care (01) ==
PROVIDERS: Emergency Provider Emergency Medicine; PCP Family Medicine
DX: R42 Dizziness and giddiness (principal); F41.1 Generalized anxiety disorder; F43.0 Acute stress reaction; R51.9 Headache, unspecified; R20.2 Paresthesia of skin; R79.1 Abnormal coagulation profile; R94.31 Abnormal electrocardiogram [ECG] [EKG]; Z79.899 Other long term (current) drug therapy
CPT/HCPCS: 36415; 71275; 80053; 81003; 82947; 84484; 85025; 85379; 93005; 99284; Q9967

== ENCOUNTER 2021-09-13 11:49 | Outpatient (REF) | payer BC, SELFPAY ==
[2021-09-13 13:56] LABS: Binax Internal Control QC Valid; Binax Now Covid-19 Ag Positive (Negative)
== END 2021-09-13 11:50 | disposition home or self-care (01) ==
LOC: HO.LAB 11:49
PROVIDERS: Visit Provider Internal Medicine
DX: Z20.822 Contact with and (suspected) exposure to COVID-19 (principal)
CPT/HCPCS: 36415; C9803

== ENCOUNTER 2021-12-04 15:57 | Emergency (ER) | payer BC, SELFPAY ==
[2021-12-04 16:16] VITALS: BP 136/81; PULSE 98; RESP 20; TEMP 36.9; O2SAT 99; BMI 34.7
[2021-12-04 16:51] LABS: MANUAL DIFF FLAG NO
[2021-12-04 16:57] LABS: Basophils Percent Auto 0.4 % (0-2); Eosinophils Absolute Auto 0.2 X10*3/uL (0.0-0.4); Eosinophils Percent Auto 1.6 % (0-4); Hematocrit 37.7 % (37.0-47.0); Imm Gran Abs Auto 0.03 X10*3/uL (0.00-0.03); Imm Gran Pct Auto 0.3 % (0.0-0.4); Lymphocytes Absolute Auto 3.5 X10*3/uL (1.2-4.9); Lymphocytes Percent Auto 37.9 % (20-40); Mean Corpuscular HGB Conc 31.8 g/dl (31.0-35.0); Mean Corpuscular Hemoglobin 28.1 pg (27.0-33.0); Mean Corpuscular Volume 88.3 fL (80.0-98.0); Mean Platelet Volume 10.7 fL (9.4-12.3); Monocytes Absolute Auto 0.5 X10*3/uL (0.1-1.2); Monocytes Percent Auto 5.3 % (2-11); Neutrophils Percent Auto 54.5 % (45-73); Platelet Count 322 X10*3/uL (160-400); Red Blood Count 4.27 X10*6/uL (4.20-5.50); Red Cell Distribution Width 12.7 % (11.0-16.0); White Blood Count 9.2 X10*3/uL (4.8-10.8)
[2021-12-04 17:09] LABS: Anion Gap 12 (12-20); Blood Urea Nitrogen 11 mg/dL (9-16); Carbon Dioxide 27 mmol/L (22-29); Chloride 104 mmol/L (96-108); Creatinine Clr Calc Pharmacy 112.5; Estimated Glomerular Filt Rate > 60; Glucose Random 106 mg/dL (60-115); Potassium 4.2 mmol/L (3.3-5.1); Sodium 139 mmol/L (135-145)
== END 2021-12-04 19:51 | disposition left against medical advice (07) ==
PROVIDERS: Emergency Provider Emergency Medicine
DX: R20.0 Anesthesia of skin (principal)
CPT/HCPCS: 36415; 80048; 85025; 99282; 99283

== ENCOUNTER 2021-12-18 14:34 | Outpatient (REF) | payer BC, SELFPAY ==
--- NOTE | ~2021-12-18 | XR_ITS ---
EXAMINATION: XR SHOULDER, RIGHT CLINICAL INFORMATION: Right shoulder pain. COMPARISON: None. TECHNIQUE: AP external rotation, Grashey, scapular Y, and axillary views of the right shoulder. FINDINGS: Small acromioclavicular marginal osteophytes with small lateral subacromial spurs. Small inferior glenohumeral marginal osteophytes. No osseous erosion. No fracture or dislocation. Calcification measuring 0.3 cm posterior to the greater tuberosity consistent with distal infraspinatus calcific tendinitis. XR/XR shoulder RT min 2V IMPRESSION: Minimal distal infraspinatus calcific tendinitis. Mild acromioclavicular osteoarthritis with small lateral subacromial spurs. Mild glenohumeral osteoarthritis.
== END 2021-12-18 14:35 | disposition home or self-care (01) ==
LOC: HO.XRAY 14:34
PROVIDERS: PCP Family Medicine; Visit Provider Nurse Practitioner Family
DX: M25.511 Pain in right shoulder (principal)
CPT/HCPCS: 73030

== ENCOUNTER 2022-07-06 19:59 | Emergency (ER) | payer BC, SELFPAY ==
--- NOTE | ~2022-07-06 | XR_ITS ---
EXAMINATION: XR CHEST CLINICAL INFORMATION: Palpitations COMPARISON: None TECHNIQUE: AP portable view of the chest was obtained. FINDINGS: No significant abnormality is noted involving the heart, lungs, mediastinum, bony thorax or soft tissues. XR/XR chest 1V IMPRESSION: No acute disease.
[2022-07-06 20:51] VITALS: BP 142/88; PULSE 99; RESP 18; TEMP 36.8; O2SAT 100; BMI 36.6
--- NOTE | 2022-07-06 20:53 | ECG_ITS ---
Test Reason : cp Blood Pressure : / mmHG Vent. Rate : 101 BPM Atrial Rate : 101 BPM P-R Int : 154 ms QRS Dur : 082 ms QT Int : 356 ms P-R-T Axes : 038 -11 011 degrees QTc Int : 461 ms Sinus tachycardia Minimal voltage criteria for LVH, may be normal variant ( R in aVL ) Low voltage QRS precordial leads Abnormal ECG When compared with ECG of 01-JUL-2021 20:29, previous study had limb lead reversal Referred By: Generic ED Physician Electronically Signed By:JENELLE ATKINS MD
[2022-07-06 21:24] LABS: MANUAL DIFF FLAG NO
[2022-07-06 21:25] LABS: Basophils Absolute Auto 0.1 X10*3/uL (0.0-0.2); Basophils Percent Auto 0.6 % (0-2); Eosinophils Absolute Auto 0.2 X10*3/uL (0.0-0.4); Eosinophils Percent Auto 1.7 % (0-4); Hematocrit 37.5 % (37.0-47.0); Hemoglobin 12.1 g/dl (12.0-16.0); Imm Gran Abs Auto 0.03 X10*3/uL (0.00-0.03); Imm Gran Pct Auto 0.3 % (0.0-0.4); Lymphocytes Absolute Auto 2.9 X10*3/uL (1.2-4.9); Lymphocytes Percent Auto 31.3 % (20-40); Mean Corpuscular HGB Conc 32.3 g/dl (31.0-35.0); Mean Corpuscular Hemoglobin 28.1 pg (27.0-33.0); Mean Platelet Volume 11.1 fL (9.4-12.3); Monocytes Absolute Auto 0.5 X10*3/uL (0.1-1.2); Neutrophils Absolute Auto 5.7 x10*3/uL (2.0-8.3); Neutrophils Percent Auto 61.1 % (45-73); Platelet Count 284 X10*3/uL (160-400); Red Blood Count 4.31 X10*6/uL (4.20-5.50); Red Cell Distribution Width 12.2 % (11.0-16.0); White Blood Count 9.4 X10*3/uL (4.8-10.8)
[2022-07-06 21:26] VITALS: BP 162/100; PULSE 102; RESP 16; TEMP 37.1; O2SAT 99
--- NOTE | 2022-07-06 21:30 | ED.CHESTPAIN ---
HPI - Chest Pain General Chief Complaint: Chest Pain Stated Complaint: Facial Numbness/?Anxiety Time Seen by Provider: 07/06/22 21:30 Source: patient Mode of arrival: ambulatory Limitations: no limitations History of Present Illness HPI narrative: Patient has history of anxiety/panic attacks with palpitations off and on today while watching TV patient was relaxed at any notice heart was racing became more anxious checked her pulse was around 200 whole episode lasted for half an hour patient tried to take a deep breath and hold her breath put cold water on her face patient has never been evaluated by construction mgr or PCP not taking any medicine for anxiety patient had RSV 2 days ago still coughing no shortness of breath Related Data Previous Rx's Medication Instructions Recorded omeprazole 40 mg capsule,delayed 40 mg PO DAILY 14 days #14 caps 12/25/20 release ondansetron 4 mg disintegrating 4 mg PO Q8H PRN nausea and 12/25/20 tablet vomiting #20 tabs Allergies Allergy/AdvReac Type Severity Reaction Status Date / Time latex [LATEX] Allergy Intermediate ITCHY NO Verified 07/06/22 20:53 SOB Review of Systems Review of Systems: Yes all other systems are reviewed and are negative [facility] Past Medical History Medical History delivery delivered Pancreatitis Surgical History H/O: hysterectomy History of cholecystectomy Social History Social History Alcohol intake: never Advance Directives: No Advance Directives Information Provided: No Physical Exam Vital Signs: Vital Signs: Last Vital Signs Temp 98.8 F 07/06/22 21:26 Pulse 102 H 07/06/22 21:26 Resp 16 07/06/22 21:26 BP 162/100 H 07/06/22 21:26 Pulse Ox 99 07/06/22 21:26 O2 Del Method 07/06/22 21:26 BMI result Body Mass Index 36.6 Appearance: Alert. Oriented X3. No acute distress. Eyes: PERRLA, No Nystagmus ENT: Pharynx normal. Oral Mucosa moist Neck: Normal inspection. Neck supple. CVS: Normal heart rate and rhythm. Pulses normal. Respiratory: No respiratory distress. Equal air entry bilateral, no wheezing/rales/rhonchi Abdomen: Soft and nontender. Bowel sounds are present, no mass palpable, no CVA tenderness Skin: Skin warm and dry. Normal skin color. Normal skin turgor. Extremities: No lower extremity edema. No calf tenderness Neuro: Oriented X 3. No motor deficit. No sensory deficit.No cerebellar signs , cranial nerves II-XII intact MDM - Chest Pain MDM Narrative Medical decision making narrative: Patient with anxiety/palpitation episodes not clear whether SVT causing the anxiety or anxiety causing the tachycardia labs are stable will give patient Ativan to relax advised to follow-up with construction mgr for further evaluation including the Holter testing Lab Data Attestation: I reviewed the patient's lab results. Result diagrams: 07/06/22 21:03 07/06/22 21:04 Labs: Lab Results 07/06/22 07/06/22 07/06/22 Range/Units 21:03 21:03 21:04 WBC 9.4 (4.8-10.8) X10*3/uL RBC 4.31 (4.20-5.50) X10*6/uL Hgb 12.1 (12.0-16.0) g/dl Hct 37.5 (37.0-47.0) % MCV 87.0 (80.0-98.0) fL MCH 28.1 (27.0-33.0) pg MCHC 32.3 (31.0-35.0) g/dl RDW 12.2 (11.0-16.0) % Plt Count 284 (160-400) X10*3/uL MPV 11.1 (9.4-12.3) fL Immature Gran % (Auto) 0.3 (0.0-0.4) % Neut % (Auto) 61.1 (45-73) % Lymph % (Auto) 31.3 (20-40) % [place] % (Auto) 5.0 (2-11) % Eos % (Auto) 1.7 (0-4) % Baso % (Auto) 0.6 (0-2) % Lymph # (Auto) 2.9 (1.2-4.9) X10*3/uL [place] # (Auto) 0.5 (0.1-1.2) X10*3/uL Eos # (Auto) 0.2 (0.0-0.4) X10*3/uL Baso # (Auto) 0.1 (0.0-0.2) X10*3/uL Abs Immat Gran (auto) 0.03 (0.00-0.03) X10*3/uL Absolute Neuts (auto) 5.7 (2.0-8.3) x10*3/uL Absolute Nucleated RBC 0.000 (0.0-0.012) X10*3/uL Nucleated RBC % (auto) 0.0 (0.0-0.2) /100WBC Sodium 137 (135-145) mmol/L Potassium 4.1 (3.3-5.1) mmol/L Chloride 100 (96-108) mmol/L Carbon Dioxide 24 (22-29) mmol/L Anion Gap 17 (12-20) BUN 12 (9-16) mg/dL Creatinine 0.75 (0.5-1.4) mg/dL Estim Creat Clear Calc 97.1 Estimated GFR > 60 Random Glucose 295 H (60-115) mg/dL Calcium 9.7 (8.4-10.2) mg/dL Troponin I High Sens < 3.5 (<3.5-17.0) ng/L ECG Data ECG #1: Attestation: I personally reviewed and interpreted this ECG as follows: Interpretation: Sinus tachycardia heart rate 101 beats per minute LVH normal axis normal interval no acute ST-T changes no acute ischemia Discharge Plan Discharge Clinical Impression: Acute anxiety, Heart palpitations Patient Disposition: Home, Self-Care Instructions: Heart Palpitations (ED), Anxiety (ED) Additional Instructions: Possible you have SVT which causing the palpitation episode associated with anxiety it needs further workup including Holter monitoring. Decrease caffeine intake Follow-up with your PCP/construction mgr for further workup including Holter monitor Medication for anxiety/sleep as prescribed Diabetic diet as advised and further follow-up with PCP for prediabetic status Prescriptions: No Action ondansetron 4 mg tablet,disintegrating 4 mg PO Q8H PRN (Reason: nausea and vomiting) Qty: 20 0RF omeprazole 40 mg capsule,delayed release(DR/EC) 40 mg PO DAILY 14 Days Qty: 14 0RF
[2022-07-06 21:39] LABS: Anion Gap 17 (12-20); Blood Urea Nitrogen 12 mg/dL (9-16); Calcium 9.7 mg/dL (8.4-10.2); Carbon Dioxide 24 mmol/L (22-29); Chloride 100 mmol/L (96-108); Creatinine Clr Calc Pharmacy 97.1; Estimated Glomerular Filt Rate > 60; Glucose Random 295 mg/dL (60-115); Potassium 4.1 mmol/L (3.3-5.1); Sodium 137 mmol/L (135-145)
[2022-07-06 21:47] LABS: Troponin-I High Sensitivity < 3.5 ng/L (<3.5-17.0)
[2022-07-06] MEDS: LORazepam 1 MG TABLET PO (21:55)
[2022-07-07 05:42] LABS: Estimated Average Glucose 154 mg/dL
== END 2022-07-06 22:31 | disposition home or self-care (01) ==
PROVIDERS: Emergency Provider Internal Medicine; PCP Family Medicine
DX: R00.2 Palpitations (principal); R07.89 Other chest pain; F41.1 Generalized anxiety disorder; F43.0 Acute stress reaction; Z79.899 Other long term (current) drug therapy
CPT/HCPCS: 36415; 71045; 80048; 83036; 84484; 85025; 93005; 99282; 99283

== ENCOUNTER 2022-07-30 05:21 | Emergency (ER) | payer BC, SELFPAY ==
--- NOTE | ~2022-07-30 | XR_ITS ---
EXAMINATION: XR CHEST, 2 VIEWS CLINICAL INFORMATION: Shortness of breath COMPARISON: 07/06/2022 TECHNIQUE: PA and lateral views of the chest were obtained. FINDINGS: Small linear focus of parenchymal scarring in the region of the lingula. No consolidation, pneumothorax, or pleural effusion. Cardiac and mediastinal contours are normal. Pulmonary vasculature is unremarkable. Trachea is midline. Osseous structures are unremarkable. Cholecystectomy clips in the right upper quadrant. XR/XR chest 2V IMPRESSION: No acute cardiopulmonary findings.
--- NOTE | ~2022-07-30 | CT_ITS ---
EXAMINATION: CT ABDOMEN AND PELVIS WITHOUT CONTRAST CLINICAL INFORMATION: Fever COMPARISON: CT abdomen and pelvis 12/25/2020. TECHNIQUE: Multidetector volumetric imaging was performed from the superior aspect of the liver through the pubic symphysis. Sagittal and coronal reformatted images were obtained on the technologist's workstation. This CT examination was performed using dose optimization techniques as appropriate, variously including the following: *Automated exposure control *Adjustment of mA and/or kV according to patient size (this includes techniques or standardized protocols for targeted exams where dose is matched to indication/reason for exam; i.e. extremities or head) *Use of iterative reconstruction technique DLP: 668 mGy-cm FINDINGS: LUNG BASES: The lung bases are clear. Heart size is normal. LIVER, GALLBLADDER, AND BILIARY TREE: The liver is normal in size, shape, and diffusely attenuated. No focal hepatic lesion or biliary ductal dilatation is present. The gallbladder has been surgically removed. PANCREAS: Unremarkable. SPLEEN: Unremarkable. ADRENAL GLANDS: There is a left adrenal lesion measuring 1.5 x 1.6 cm and -2.89 Hounsfield units suggestive benign adenoma. The right mid gland is normal. KIDNEYS AND URETERS: The kidneys are normal in size, shape, and attenuation. There is a punctate 1 mm calcification or stone in the lower pole calyx left kidney. No additional radiopaque density seen. There is no hydroureteronephrosis. BLADDER: Unremarkable. GASTROINTESTINAL TRACT: There is scattered stool and diverticula seen throughout the colon without distention or diverticulitis. The small bowel loops are normal caliber. Appendix is normal caliber. ABDOMINAL WALL: No significant hernia is appreciated. LYMPH NODES: Normal. VASCULAR: Unremarkable. PELVIC VISCERA: The uterus is nonvisualized likely atrophied or surgically removed. Ovaries unremarkable. There is no free air or free fluid. OSSEOUS STRUCTURES: No aggressive lytic or sclerotic process seen. CT/CT abdomen pelvis wo IV con IMPRESSION: 1. Colonic diverticulosis without diverticulitis. Mild constipation. 2. Nonobstructive radiopaque calculi lower pole left kidney 3. Left adrenal benign adenoma. 4. Diffuse hepatic steatosis without focal lesion. Gallbladder has been surgically removed. Fleischner guidelines were followed.
[2022-07-30 05:23] VITALS: BP 116/64; PULSE 137; RESP 18; TEMP 39.3; O2SAT 96; BMI 35.3
--- NOTE | 2022-07-30 05:29 | ECG_ITS ---
Test Reason : tachycardia Blood Pressure : / mmHG Vent. Rate : 132 BPM Atrial Rate : 132 BPM P-R Int : 146 ms QRS Dur : 080 ms QT Int : 284 ms P-R-T Axes : 031 -31 012 degrees QTc Int : 420 ms Sinus tachycardia Left axis deviation Minimal voltage criteria for LVH, may be normal variant ( R in aVL ) Anterolateral infarct (cited on or before 30-JUL-2022) Abnormal ECG When compared with ECG of 06-JUL-2022 20:59, Heart rate has increased Referred By: Generic ED Physician Electronically Signed By:JENELLE ATKINS MD
[2022-07-30 05:56] LABS: Basophils Absolute Auto 0.1 X10*3/uL (0.0-0.2); Basophils Percent Auto 0.4 % (0-2); Eosinophils Percent Auto 0.2 % (0-4); Hematocrit 40.2 % (37.0-47.0); Hemoglobin 13.3 g/dl (12.0-16.0); Imm Gran Abs Auto 0.06 X10*3/uL (0.00-0.03); Imm Gran Pct Auto 0.4 % (0.0-0.4); Lymphocytes Absolute Auto 1.5 X10*3/uL (1.2-4.9); Lymphocytes Percent Auto 11.4 % (20-40); MANUAL DIFF FLAG NO; Mean Corpuscular HGB Conc 33.1 g/dl (31.0-35.0); Mean Corpuscular Hemoglobin 27.7 pg (27.0-33.0); Mean Corpuscular Volume 83.8 fL (80.0-98.0); Mean Platelet Volume 11.1 fL (9.4-12.3); Monocytes Absolute Auto 0.6 X10*3/uL (0.1-1.2); Monocytes Percent Auto 4.4 % (2-11); Neutrophils Absolute Auto 11.1 x10*3/uL (2.0-8.3); Neutrophils Percent Auto 83.2 % (45-73); Platelet Count 270 X10*3/uL (160-400); Red Cell Distribution Width 12.9 % (11.0-16.0); White Blood Count 13.4 X10*3/uL (4.8-10.8)
[2022-07-30] MEDS: Acetaminophen 325 MG TABLET 975 MG PO (05:57)
[2022-07-30 06:05] LABS: Lactic Acid 0.8 mmol/L (0.5-2.0)
[2022-07-30 06:10] LABS: Alanine Aminotransferase 31 U/L (0-31); Albumin Level 4.7 g/dL (3.5-5.0); Alkaline Phosphatase 88 U/L (39-117); Anion Gap 15 (12-20); Aspartate Amino Transferase 22 U/L (5-31); Bilirubin Total 0.6 mg/dL (0.0-1.0); Blood Urea Nitrogen 17 mg/dL (9-16); Calcium 9.9 mg/dL (8.4-10.2); Carbon Dioxide 22 mmol/L (22-29); Chloride 104 mmol/L (96-108); Creatinine Clr Calc Pharmacy 89.4; Estimated Glomerular Filt Rate > 60; Glucose Random 138 mg/dL (60-115); Lipase 11 U/L (8-78); Magnesium 1.7 mg/dL (1.6-2.6); Potassium 4.1 mmol/L (3.3-5.1); Sodium 137 mmol/L (135-145); Total Protein 7.9 g/dL (6.5-8.0)
[2022-07-30 06:34] LABS: Influenza A PCR NEGATIVE (Negative); Influenza B PCR NEGATIVE (Negative); Resp Syncy Virus RNA Qual PCR NEGATIVE (Negative); SARS COV2 PCR INHOUSE NEGATIVE (Negative)
[2022-07-30 06:48] VITALS: BP 105/60; PULSE 115; RESP 18; O2SAT 92
--- NOTE | 2022-07-30 07:14 | ED.FEVER ---
HPI - Fever General Chief Complaint: Fever Stated Complaint: fever Time Seen by Provider: 07/30/22 06:50 Source: patient Mode of arrival: ambulatory Limitations: no limitations History of Present Illness HPI Narrative: 47-year-old female came in for evaluation of fever. Two days of high subjective fever of 103, patient otherwise decline photophobia or neck stiffness, no chest pain or coughing, no abdominal pain, no flank pain, declined dysuria. Only complaining of frequency urination and patient thinks because of drinking plenty of fluid, patient declined back pain, no history of IV drug abuse. Patient had previous similar symptoms of fever due to pyelonephritis reviewing old chart patient did not have urinary symptoms but patient found to have obstructive nephrolithiasis and pyelonephritis. Abdominal surgical history significant for cholecystectomy, partial hysterectomy, and . Related Data Previous Rx's Medication Instructions Recorded omeprazole 40 mg capsule,delayed 40 mg PO DAILY 14 days #14 caps 12/25/20 release ondansetron 4 mg disintegrating 4 mg PO Q8H PRN nausea and 12/25/20 tablet vomiting #20 tabs lorazepam 1 mg tablet (Ativan) 1 mg PO BEDTIME PRN anxiety #10 07/06/22 tabs Allergies Allergy/AdvReac Type Severity Reaction Status Date / Time latex [LATEX] Allergy Intermediate ITCHY NO Verified 07/30/22 05:23 SOB Review of Systems Review of Systems: All other systems are reviewed and are negative Constitutional: Reports as per HPI and Reports no additional constitutional complaints Eyes: Reports as per HPI and Reports no additional eye complaints Reports system reviewed and no additional complaints, except as documented Cardiovascular: Reports as per HPI and Reports no additional cardiovascular complaints Respiratory: Reports as per HPI and Reports no additional respiratory complaints Gastrointestinal: Reports as per HPI and Reports no additional gastrointestinal complaints Genitourinary: Reports no additional female genitourinary complaints Musculoskeletal: Reports no additional musculoskeletal complaints Skin/Breast: Reports system reviewed and no additional complaints, except as docu Psychiatric: Reports no additional psychiatric complaints Endocrine: Reports no additional endocrine complaints Hematologic/Lymphatic: Reports no additional hematologic/lymphatic complaints Allergic/Immunologic: Reports no additional allergic/immunologic complaints Reports system reviewed and no additional complaints, except as documented and Reports Abnormal speech present [facility] Past Medical History Medical History delivery delivered Pancreatitis Surgical History H/O: hysterectomy History of cholecystectomy Social History Social History Alcohol intake: never Smoked in Last 30 Days: No Use of substances other than those prescribed or required for medical reasons: No Advance Directives: No Advance Directives Information Provided: Yes Patient : No Physical Exam Vital Signs: Vital Signs: Last Vital Signs Temp 98.4 F 07/30/22 09:22 Pulse 95 07/30/22 09:22 Resp 15 07/30/22 09:22 BP 104/48 L 07/30/22 09:22 Pulse Ox 95 07/30/22 07:37 O2 Del Method 07/30/22 07:37 BMI result Body Mass Index 35.3 Vital signs have been reviewed as appeared to be correct. Blood pressure normal. Heart rate normal. Respiration rate normal. Temperature normal. Oxygen saturation normal. Appearance: Alert. Oriented X3. No acute distress. Head: Normal external exam. Normocephalic. Atraumatic. No [place] signs noted. No raccoon eyes noted Eyes: PERRLA. EOMI. Conjunctiva and sclera normal. Eyelids normal. ENT: TM's Normal. Pharynx normal. Uvula midline. Moist mucous membranes. No trismus noted. No drooling noted. No muffled voice noted. Neck: Normal inspection. Neck supple. FROM. No adenopathy. Thyroid Normal. No meningeal signs. No neck mass noted. CVS: Normal heart rate and rhythm. Heart sound normal. No murmurs noted. Pulses normal throughout. Respiratory: No respiratory distress. Painless inspiration. Breath sounds normal. No wheezes/rales/rhonchi noted. Chest nontender. No accessory muscle usage noted or decreased air movement noted. Abdomen: Soft and nontender. Bowel sounds normal in all 4 quadrants. No distention noted. No organomegaly noted. No visible injury noted. Back: No CVA tenderness. Full range of motion noted. Skin: Skin warm and dry. Normal skin color. Normal skin turgor. No rashes/lesions/lacerations noted. Extremities: No lower extremity edema. Extremities exhibit normal range of motion. Extremities nontender. Neuro: Oriented X 3. Cranial nerve exam: II-XII are grossly intact No motor deficit. No sensory deficit. Reflexes normal. Course Course Course Narrative: 47-year-old female came in for evaluation of fever. No source was found for the patient fever, patient has leukocytosis, patient remained asymptomatic and feels better after IV fluid and Tylenol controlling her fever, patient will be discharged home and instructed to return if any symptoms, for re-evaluation. Medications Administered Discontinued Medications Generic Name Dose Route Start Last Admin Trade Name Kinza PRN Reason Stop Dose Admin Acetaminophen 975 mg 07/30/22 05:31 07/30/22 05:57 Acetaminophen 325 Mg Tablet PO 07/30/22 05:32 975 mg ONCE ONE Administration Sodium Chloride 1,000 mls @ 999 mls/hr 07/30/22 07:45 07/30/22 09:25 Ns IV 07/30/22 08:45 Infused .Q1H1M ONE Infusion Sodium Chloride 1,000 mls @ 999 mls/hr 07/30/22 08:22 07/30/22 09:23 Ns IV 07/30/22 09:22 999 mls/hr .Q1H1M ONE Administration Ibuprofen 600 mg 07/30/22 08:22 07/30/22 09:23 Ibuprofen 600 Mg Tablet PO 07/30/22 08:23 600 mg ONCE ONE Administration MDM - Fever Medical Records Attestation: I reviewed the patient's medical records. Lab Data Attestation: I reviewed the patient's lab results. Result diagrams: 07/30/22 05:49 07/30/22 05:49 Labs: Lab Results 07/30/22 07/30/22 07/30/22 Range/Units 05:49 05:49 05:49 WBC 13.4 H (4.8-10.8) X10*3/uL RBC 4.80 (4.20-5.50) X10*6/uL Hgb 13.3 (12.0-16.0) g/dl Hct 40.2 (37.0-47.0) % MCV 83.8 (80.0-98.0) fL MCH 27.7 (27.0-33.0) pg MCHC 33.1 (31.0-35.0) g/dl RDW 12.9 (11.0-16.0) % Plt Count 270 (160-400) X10*3/uL MPV 11.1 (9.4-12.3) fL Immature Gran % (Auto) 0.4 (0.0-0.4) % Neut % (Auto) 83.2 H (45-73) % Lymph % (Auto) 11.4 L (20-40) % [place] % (Auto) 4.4 (2-11) % Eos % (Auto) 0.2 (0-4) % Baso % (Auto) 0.4 (0-2) % Lymph # (Auto) 1.5 (1.2-4.9) X10*3/uL [place] # (Auto) 0.6 (0.1-1.2) X10*3/uL Eos # (Auto) 0.0 (0.0-0.4) X10*3/uL Baso # (Auto) 0.1 (0.0-0.2) X10*3/uL Abs Immat Gran (auto) 0.06 H (0.00-0.03) X10*3/uL Absolute Neuts (auto) 11.1 H (2.0-8.3) x10*3/uL Absolute Nucleated RBC 0.000 (0.0-0.012) X10*3/uL Nucleated RBC % (auto) 0.0 (0.0-0.2) /100WBC Sodium 137 (135-145) mmol/L Potassium 4.1 (3.3-5.1) mmol/L Chloride 104 (96-108) mmol/L Carbon Dioxide 22 (22-29) mmol/L Anion Gap 15 (12-20) BUN 17 H (9-16) mg/dL Creatinine 0.79 (0.5-1.4) mg/dL Estim Creat Clear Calc 89.4 Estimated GFR > 60 Random Glucose 138 H (60-115) mg/dL Lactic Acid (0.5-2.0) mmol/L Calcium 9.9 (8.4-10.2) mg/dL Magnesium 1.7 (1.6-2.6) mg/dL Total Bilirubin 0.6 (0.0-1.0) mg/dL AST 22 (5-31) U/L ALT 31 (0-31) U/L Alkaline Phosphatase 88 (39-117) U/L Total Protein 7.9 (6.5-8.0) g/dL Albumin 4.7 (3.5-5.0) g/dL Lipase 11 (8-78) U/L Urine Color Urine Appearance Urine pH (5.0-9.0) Ur Specific [place] (1.005-1.025) Urine Protein (Neg-Trace) mg/dL Urine Glucose (UA) (Negative) mg/dL Urine Ketones (Negative) mg/dL Urine Blood (Negative) Urine Nitrite (Negative) Ur Leukocyte Esterase (Negative) Influenza Type A (PCR) NEGATIVE (Negative) Influenza Type B (PCR) NEGATIVE (Negative) RSV RNA Qual (PCR) NEGATIVE (Negative) SARS-CoV-2 RNA (RT-PCR) NEGATIVE (Negative) 07/30/22 07/30/22 Range/Units 05:49 07:41 WBC (4.8-10.8) X10*3/uL RBC (4.20-5.50) X10*6/uL Hgb (12.0-16.0) g/dl Hct (37.0-47.0) % MCV (80.0-98.0) fL MCH (27.0-33.0) pg MCHC (31.0-35.0) g/dl RDW (11.0-16.0) % Plt Count (160-400) X10*3/uL MPV (9.4-12.3) fL Immature Gran % (Auto) (0.0-0.4) % Neut % (Auto) (45-73) % Lymph % (Auto) (20-40) % [place] % (Auto) (2-11) % Eos % (Auto) (0-4) % Baso % (Auto) (0-2) % Lymph # (Auto) (1.2-4.9) X10*3/uL [place] # (Auto) (0.1-1.2) X10*3/uL Eos # (Auto) (0.0-0.4) X10*3/uL Baso # (Auto) (0.0-0.2) X10*3/uL Abs Immat Gran (auto) (0.00-0.03) X10*3/uL Absolute Neuts (auto) (2.0-8.3) x10*3/uL Absolute Nucleated RBC (0.0-0.012) X10*3/uL Nucleated RBC % (auto) (0.0-0.2) /100WBC Sodium (135-145) mmol/L Potassium (3.3-5.1) mmol/L Chloride (96-108) mmol/L Carbon Dioxide (22-29) mmol/L Anion Gap (12-20) BUN (9-16) mg/dL Creatinine (0.5-1.4) mg/dL Estim Creat Clear Calc Estimated GFR Random Glucose (60-115) mg/dL Lactic Acid 0.8 (0.5-2.0) mmol/L Calcium (8.4-10.2) mg/dL Magnesium (1.6-2.6) mg/dL Total Bilirubin (0.0-1.0) mg/dL AST (5-31) U/L ALT (0-31) U/L Alkaline Phosphatase (39-117) U/L Total Protein (6.5-8.0) g/dL Albumin (3.5-5.0) g/dL Lipase (8-78) U/L Urine Color Yellow Urine Appearance Clear Urine pH 8.0 (5.0-9.0) Ur Specific [place] 1.025 (1.005-1.025) Urine Protein Trace (Neg-Trace) mg/dL Urine Glucose (UA) Negative (Negative) mg/dL Urine Ketones Trace (Negative) mg/dL Urine Blood Negative (Negative) Urine Nitrite Negative (Negative) Ur Leukocyte Esterase Negative (Negative) Influenza Type A (PCR) (Negative) Influenza Type B (PCR) (Negative) RSV RNA Qual (PCR) (Negative) SARS-CoV-2 RNA (RT-PCR) (Negative) Imaging Data Chest x-ray: Attestation: I personally reviewed and interpreted this imaging study as follows: Radiologist's impression: No acute pathology. CT scan - abdomen: Attestation: I personally reviewed and interpreted this imaging study as follows: Radiologist's impression: 1. ? Colonic diverticulosis without diverticulitis. Mild constipation. ? 2.? Nonobstructive radiopaque calculi lower pole left kidney ? 3.? Left adrenal benign adenoma. ? 4. Diffuse hepatic steatosis without focal lesion. Gallbladder has been surgically removed. ? ECG Data ECG #1: Attestation: I personally reviewed and interpreted this ECG as follows: Interpretation: Sinus tachycardia at 133 beats per minutes, left axis deviation, normal intervals, no ST-T changes. Discharge Plan Discharge Clinical Impression: Fever of unknown origin, Leukocytosis Patient Disposition: Home, Self-Care Instructions: Fever in Adults (ED) Additional Instructions: Take Tylenol 500 mg tablets or ibuprofen 200 mg tablet every 6 hours if needed for fever greater than 100.4. Return if fever persist for more than 2 days or developed any new symptoms including but not limited to headache, blurry vision, stiff neck, coughing, chest pain, abdominal pain, urinary frequency or pain with urination. Prescriptions: No Action ondansetron 4 mg tablet,disintegrating 4 mg PO Q8H PRN (Reason: nausea and vomiting) Qty: 20 0RF omeprazole 40 mg capsule,delayed release(DR/EC) 40 mg PO DAILY 14 Days Qty: 14 0RF lorazepam [Ativan] 1 mg tablet 1 mg PO BEDTIME PRN (Reason: anxiety) Qty: 10 0RF Referrals: Clau Nguyen MD [Primary Care Provider] - Stand Alone Forms: Work/School Release
[2022-07-30 07:37] VITALS: BP 108/62; PULSE 106; RESP 16; TEMP 37.6; O2SAT 95
[2022-07-30 07:49] LABS: Appearance Urine Clear; Color Urine Yellow; Glucose Urine UA Negative (Negative); Leukocyte Esterase Urine Negative (Negative); Nitrite Urine Negative (Negative); Specific Gravity - Urine 1.025 (1.005-1.025); Urine Blood Negative (Negative); Urine Ketones Trace mg/dL (Negative); Urine Protein Trace mg/dL (Neg-Trace)
--- NOTE | 2022-07-30 08:06 | PC.NURSE ---
PT WITH C/P PAIN TO iv SITE, FOUND TO BE INFILTRATED. rEMOVED iv, STARTED NEW iv TO lac WITH GOOD BLOOD RETRUN, SITE BENIGN, PT STATES NO PAIN. 1L NS HANGING PER DR ROMERO
[2022-07-30] MEDS: 0.9 % Sodium Chloride 1,000 ML 999 ML IV ×2 (08:08→09:23)
[2022-07-30 08:10] VITALS: PULSE 99; RESP 15; TEMP 37.6
[2022-07-30 09:22] VITALS: BP 104/48; PULSE 95; RESP 15; TEMP 36.9
[2022-07-30] MEDS: Ibuprofen 600 MG TABLET PO (09:23)
[2022-07-30 10:43] VITALS: BP 104/51; PULSE 79; RESP 16; TEMP 36.6; O2SAT 97
== END 2022-07-30 10:49 | disposition home or self-care (01) ==
PROVIDERS: Emergency Provider Emergency Medicine; PCP Family Medicine
DX: R50.9 Fever, unspecified (principal); D72.829 Elevated white blood cell count, unspecified; R00.0 Tachycardia, unspecified; Z20.822 Contact with and (suspected) exposure to COVID-19
CPT/HCPCS: 0241U; 36415; 71046; 74176; 80053; 81003; 83605; 83690; 83735; 85025; 87040; 93005; 96360; 99285

== ENCOUNTER 2023-01-13 12:00 | Emergency (ER) | payer BC, SELFPAY ==
[2023-01-13 12:14] VITALS: BP 150/78; PULSE 104; RESP 18; O2SAT 100; BMI 38.4
[2023-01-13 12:28] VITALS: BP 147/70; PULSE 120; O2SAT 100
--- NOTE | 2023-01-13 12:28 | ED_ITS ---
HPI - General Adult General Chief complaint: Anxiety Stated complaint: FELT FAINT/ANXIOUS @ WORKING PER EMS Time Seen by Provider: 01/13/23 12:12 Source: patient Limitations: no limitations History of Present Illness HPI narrative: This is a 47 years old female presented to the emergency department by ambulance complaining of anxiety palpitations numbness. She is hyperventilating. She has history of diabetes no history of coronary disease Onset (ago): hour(s) (1) Radiation: non-radiation Severity: moderate Pain Consistency: constant Relieving factors: none Exacerbating factors: none Related Data Previous Rx's Medication Instructions Recorded omeprazole 40 mg capsule,delayed 40 mg PO DAILY 14 days #14 caps 12/25/20 release ondansetron 4 mg disintegrating 4 mg PO Q8H PRN nausea and 12/25/20 tablet vomiting #20 tabs lorazepam 1 mg tablet (Ativan) 1 mg PO BEDTIME PRN anxiety #10 07/06/22 tabs lorazepam 1 mg tablet 1 mg PO DAILY PRN anxiety #7 tabs 01/13/23 Allergies Allergy/AdvReac Type Severity Reaction Status Date / Time latex [LATEX] Allergy Intermediate ITCHY NO Verified 07/30/22 05:23 SOB Review of Systems Constitutional: Constitutional: Reports no additional constitutional complaints Cardiovascular: Cardiovascular: Reports no additional cardiovascular complaints Gastrointestinal: Gastrointestinal: Reports no additional gastrointestinal complaints Psychiatric: Psychiatric: Reports anxiety PMFSH Past Medical History Medical History delivery delivered Pancreatitis Surgical History H/O: hysterectomy History of cholecystectomy Social History Social History Alcohol intake: never Advance Directives: No Advance Directives Information Provided: Yes Physical Exam ED Vital Signs: Vital Signs - 24 hr 01/13/23 12:14 Pulse Rate 104 H Respiratory Rate 18 Blood Pressure 150/78 H Pulse Oximetry 100 Oxygen Delivery Method Room Air BMI result Body Mass Index 38.4 Const General: cooperative, comfortable, no acute distress, well developed, alert, awake and Physically active Nutritional Appearance: average body habitus Orientation/consciousness: patient oriented x3 Limitations: no limitations HENMT Head: Yes normal to inspection General nose exam: Normal external nose present Face and sinus: Yes normal facial exam Mouth: Normal oral and palatal mucosa present Neck Neck: Yes normal visual inspection and Yes full ROM Chest Chest palpation & inspection: normal inspection of the chest Resp Effort & Inspection: normal respiratory effort Auscultation: clear to auscultation bilaterally Cardio Jugular venous distension: no JVD Rate: regular rate Rhythm: regular rhythm GI Inspection: Yes normal to inspection Palpation (GI): Soft to palpation, not firm, nontender and no guarding Percussion: Yes normal to percussion Skin General skin exam: no rashes or lesions noted, elasticity normal and turgor nor mal Rashes: no rashes Neuro General: patient oriented x3 Cranial nerves: Yes CN's II-XII intact bilaterally Course Reevaluation(s) Reevaluation #1: I re-examined the patient 14:55, she is doing much better she is eating lunch, labs are normal anticipate discharge Time: 14:55 Medications Administered Discontinued Medications Generic Name Dose Route Start Last Admin Trade Name Freq PRN Reason Stop Dose Admin Lorazepam 1 mg 01/13/23 12:26 01/13/23 12:34 Lorazepam 1 Mg Tablet PO 01/13/23 12:27 1 mg ONCE ONE Administration Medical Decision Making Medical Decision Making [facility] Narrative: Presented with anxiety palpitation will get labs EKG Differential Diagnosis Differential Diagnoses: The differential diagnosis associated with the presentation includes Anxiety/ACS Admission/Observation Consideration of admission/observation: Escalation of care including admission/observation considered Lab Data [facility] Lab Attestation statement: I reviewed the patient's lab results. 01/13/23 12:38 01/13/23 12:38 Labs: Lab Results 01/13/23 01/13/23 01/13/23 Range/Units 12:38 12:38 12:38 WBC 8.3 (4.8-10.8) X10*3/uL RBC 4.40 (4.20-5.50) X10*6/uL Hgb 12.1 (12.0-16.0) g/dl Hct 37.2 (37.0-47.0) % MCV 84.5 (80.0-98.0) fL MCH 27.5 (27.0-33.0) pg MCHC 32.5 (31.0-35.0) g/dl RDW 13.1 (11.0-16.0) % Plt Count 322 (160-400) X10*3/uL MPV 11.1 (9.4-12.3) fL Immature Gran % (Auto) 0.2 (0.0-0.4) % Neut % (Auto) 51.8 (45-73) % Lymph % (Auto) 40.8 H (20-40) % [place] % (Auto) 5.5 (2-11) % Eos % (Auto) 1.1 (0-4) % Baso % (Auto) 0.6 (0-2) % Lymph # (Auto) 3.4 (1.2-4.9) X10*3/uL [place] # (Auto) 0.5 (0.1-1.2) X10*3/uL Eos # (Auto) 0.1 (0.0-0.4) X10*3/uL Baso # (Auto) 0.1 (0.0-0.2) X10*3/uL Abs Immat Gran (auto) 0.02 (0.00-0.03) X10*3/uL Absolute Neuts (auto) 4.3 (2.0-8.3) x10*3/uL Absolute Nucleated RBC 0.000 (0.0-0.012) X10*3/uL Nucleated RBC % (auto) 0.0 (0.0-0.2) /100WBC Sodium 138 (135-145) mmol/L Potassium 3.7 (3.3-5.1) mmol/L Chloride 104 (96-108) mmol/L Carbon Dioxide 23 (22-29) mmol/L Anion Gap 15 (12-20) BUN 12 (9-16) mg/dL Creatinine 0.66 (0.5-1.4) mg/dL Estim Creat Clear Calc 112.1 Estimated GFR > 60 Random Glucose 116 H (60-115) mg/dL Calcium 9.7 (8.4-10.2) mg/dL Total Bilirubin 0.3 (0.0-1.0) mg/dL AST 16 (5-31) U/L ALT 20 (0-31) U/L Alkaline Phosphatase 99 (39-117) U/L Troponin I High Sens < 2.7 (<3.5-17.0) ng/L Total Protein 7.4 (6.5-8.0) g/dL Albumin 4.4 (3.5-5.0) g/dL Independent Interpretation I performed an independent interpretation of an: EKG (Normal sinus rhythm rate [address]-T changes) Independent Historian Clinical information obtained from an independent historian. History obtained from or confirmed by: Spouse Discharge Plan Discharge Clinical Impression: Acute anxiety, Hyperventilation Patient Disposition: Home, Self-Care Instructions: Anxiety (ED) Additional Instructions: Follow-up with you primary care physician return if you worse Prescriptions: New lorazepam 1 mg tablet 1 mg PO DAILY PRN (Reason: anxiety) Qty: 7 0RF No Action ondansetron 4 mg tablet,disintegrating 4 mg PO Q8H PRN (Reason: nausea and vomiting) Qty: 20 0RF omeprazole 40 mg capsule,delayed release(DR/EC) 40 mg PO DAILY 14 Days Qty: 14 0RF lorazepam [Ativan] 1 mg tablet 1 mg PO BEDTIME PRN (Reason: anxiety) Qty: 10 0RF Referrals: Clau Nguyne MD [Primary Care Provider] - 2 days
--- NOTE | 2023-01-13 12:33 | ECG_ITS ---
Test Reason : Chest Pain Blood Pressure : / mmHG Vent. Rate : 078 BPM Atrial Rate : 078 BPM P-R Int : 158 ms QRS Dur : 088 ms QT Int : 376 ms P-R-T Axes : 047 -10 006 degrees QTc Int : 428 ms Normal sinus rhythm Minimal voltage criteria for LVH, may be normal variant ( R in aVL ) Borderline ECG When compared with ECG of 30-JUL-2022 05:31, Vent. rate has decreased BY 54 BPM Nonspecific T wave abnormality, improved in Anterior leads Referred By: Colton Cabrera Electronically Signed By:MIRIAM BISHOP
[2023-01-13] MEDS: LORazepam 1 MG TABLET PO (12:34)
[2023-01-13 12:42] LABS: MANUAL DIFF FLAG NO
[2023-01-13 12:44] LABS: Basophils Absolute Auto 0.1 X10*3/uL (0.0-0.2); Basophils Percent Auto 0.6 % (0-2); Eosinophils Absolute Auto 0.1 X10*3/uL (0.0-0.4); Eosinophils Percent Auto 1.1 % (0-4); Hematocrit 37.2 % (37.0-47.0); Hemoglobin 12.1 g/dl (12.0-16.0); Imm Gran Abs Auto 0.02 X10*3/uL (0.00-0.03); Imm Gran Pct Auto 0.2 % (0.0-0.4); Lymphocytes Absolute Auto 3.4 X10*3/uL (1.2-4.9); Lymphocytes Percent Auto 40.8 % (20-40); Mean Corpuscular HGB Conc 32.5 g/dl (31.0-35.0); Mean Corpuscular Hemoglobin 27.5 pg (27.0-33.0); Mean Corpuscular Volume 84.5 fL (80.0-98.0); Mean Platelet Volume 11.1 fL (9.4-12.3); Monocytes Absolute Auto 0.5 X10*3/uL (0.1-1.2); Monocytes Percent Auto 5.5 % (2-11); Neutrophils Absolute Auto 4.3 x10*3/uL (2.0-8.3); Neutrophils Percent Auto 51.8 % (45-73); Platelet Count 322 X10*3/uL (160-400); Red Cell Distribution Width 13.1 % (11.0-16.0); White Blood Count 8.3 X10*3/uL (4.8-10.8)
[2023-01-13 13:00] LABS: Alanine Aminotransferase 20 U/L (0-31); Albumin Level 4.4 g/dL (3.5-5.0); Alkaline Phosphatase 99 U/L (39-117); Anion Gap 15 (12-20); Aspartate Amino Transferase 16 U/L (5-31); Bilirubin Total 0.3 mg/dL (0.0-1.0); Blood Urea Nitrogen 12 mg/dL (9-16); Calcium 9.7 mg/dL (8.4-10.2); Carbon Dioxide 23 mmol/L (22-29); Chloride 104 mmol/L (96-108); Creatinine Clr Calc Pharmacy 112.1; Estimated Glomerular Filt Rate > 60; Glucose Random 116 mg/dL (60-115); Potassium 3.7 mmol/L (3.3-5.1); Sodium 138 mmol/L (135-145); Total Protein 7.4 g/dL (6.5-8.0)
[2023-01-13 13:07] LABS: Troponin-I High Sensitivity < 2.7 ng/L (<3.5-17.0)
--- NOTE | 2023-01-13 14:22 | PC.NURSE ---
pt reports symptom improvement post ativan - getting pt food from cafeteria.
== END 2023-01-13 15:04 | disposition home or self-care (01) ==
PROVIDERS: Emergency Provider Emergency Medicine; PCP Family Medicine
DX: F41.1 Generalized anxiety disorder (principal); F43.0 Acute stress reaction; R06.4 Hyperventilation; R07.89 Other chest pain; Z79.899 Other long term (current) drug therapy
CPT/HCPCS: 36415; 80053; 84484; 85025; 93005; 99283

== ENCOUNTER 2023-04-04 14:33 | Outpatient (REF) | payer BC, SELFPAY ==
--- NOTE | ~2023-04-04 | MM_ITS ---
EXAMINATION: MM SCREENING DIGITAL BREAST TOMOSYNTHESIS, BILATERAL CLINICAL INFORMATION: Screening. Asymptomatic. Baseline exam. The lifetime risk of breast cancer based on the Tyrer-Cuzick Model is 8.9%. COMPARISON: Mammography: Baseline examination. TECHNIQUE: Digital breast tomosynthesis is performed in both the craniocaudal and mediolateral oblique views along with computer-aided detection (CAD). Synthesized 2D images are generated from the tomosynthesis. FINDINGS: There are scattered areas of fibroglandular density (ACR BI-RADS breast composition Category b). Within the upper outer right breast, middle one third, there are 2 small oval focal asymmetries for which diagnostic views recommended. The smaller more superior measures 6 mm in diameter, and the more inferior lobulated larger measures 11 mm in diameter. Additional view should include large paddle spot compression 3-D views in the CC and MLO projections, as well as scheduled ultrasound. In addition, there is a small 5 mm circumscribed asymmetry in the posterior one third lower inner quadrant right breast, for which diagnostic ultrasound is warranted. This is likely a small cyst or lymph node. In the left breast, anterior one third, retroareolar region, there is a possible area of architectural distortion in the slightly medial and slightly inferior quadrant which most likely represents superimposition artifact although diagnostic views recommended for confirmation. These view should include spot compression small paddle CC and MLO views. There are no skin or axillary abnormalities. MM/MM tomosynthesis screening BI IMPRESSION: 1. 2 nodular focal asymmetries upper outer right breast for which additional views and scheduled ultrasound recommended as detailed. 2. Possible small area of architectural distortion in the left breast, anterior one third, lower slightly inner quadrant for which diagnostic views are recommended even though this is most likely superimposition artifact. Ultrasound could be considered should the abnormality persist upon the discretion of the reading radiologist. ASSESSMENT: BI-RADS BI-RADS 0 - Incomplete: Needs additional Imaging. RECOMMENDATION: 1. Additional views of the bilateral breasts as detailed. 2. Targeted ultrasound bilaterally if warranted after review of the additional views. 3. Radiology department staff will contact the patient for additional imaging. Additional Imaging required This examination should not preclude the clinical evaluation of a suspicious palpable abnormality. This patient's information was entered into a reminder system with a target due date for their next mammogram.
== END 2023-04-04 14:34 | disposition home or self-care (01) ==
LOC: HO.MAMMO 14:33
PROVIDERS: PCP Family Medicine; Visit Provider Family Medicine
DX: Z12.31 Encounter for screening mammogram for malignant neoplasm of breast (principal)
CPT/HCPCS: 77063; 77067

== ENCOUNTER → 2023-04-04 15:00 | Outpatient (BNV) | payer BC, SELFPAY | PROVIDERS: PCP Family Medicine; Visit Provider Radiology Diagnostic Radiology | DX: Z12.31 Encounter for screening mammogram for malignant neoplasm of breast (principal) | CPT/HCPCS: 77063; 77067 ==

== ENCOUNTER → 2023-05-20 14:30 | Outpatient (BNV) | payer BC, SELFPAY | PROVIDERS: PCP Family Medicine; Visit Provider Radiology Diagnostic Radiology | DX: N60.01 Solitary cyst of right breast (principal); D36.0 Benign neoplasm of lymph nodes | CPT/HCPCS: 76642; 77062; 77066 ==

== ENCOUNTER 2023-05-20 14:32 | Outpatient (REF) | payer BC, SELFPAY ==
--- NOTE | ~2023-05-20 | MM_ITS ---
EXAMINATION: MM DIAGNOSTIC DIGITAL BREAST TOMOSYNTHESIS, BILATERAL US BREAST LIMITED, RIGHT MAMMOGRAPHY: CLINICAL INFORMATION: Evaluate possible area of architectural distortion left breast retroareolar region seen on baseline screening exam. Evaluate 3 small oval masses, 2 in the superior lateral right breast, and one in the inferior medial right breast, also seen on baseline screening exam. COMPARISON: Mammography: Baseline screening mammography 04/04/2023. TECHNIQUE: Digital breast tomosynthesis is performed utilizing 3-D large paddle right CC and MLO spot compression views, and 3-D small paddle left CC and MLO spot compression views along with computer-aided detection (CAD). Synthesized 2D images are generated from the tomosynthesis. FINDINGS: There are scattered areas of fibroglandular density (ACR BI-RADS breast composition Category b). The area of suspected architectural distortion completely dissipates on spot compression views, as suspected, and is consistent with normal overlapping breast tissue (summation artifact). There is no persistent abnormality. Spot compression views of the right breast demonstrate a circumscribed kidney-shaped mass in the 9:00 axis, approximately 8 cm from the nipple, a second circumscribed oval mass in the 9:00 axis, 12 cm from the nipple, and a third small circumscribed 4 mm oval mass in the 5:00 axis right breast, 12 cm from the nipple. These will be evaluated by ultrasound. There are no suspicious findings in the left breast. ULTRASOUND: CLINICAL INFORMATION: Evaluate 3 small oval masses, 2 in the superior lateral right breast, and one in the inferior medial right breast, also seen on baseline screening exam. COMPARISON: None TECHNIQUE: Targeted sonographic evaluation was performed using a high frequency linear transducer. Attention was directed toward the 3 small oval masses as detailed above. Selected archived documentation. FINDINGS: RIGHT BREAST: In the right breast at the 5:00 axis, 12 cm from the nipple, there is a slightly dirty cyst measuring 4 mm in diameter, benign and correlating well with the mammographic abnormality. In the right breast at the 9:00 axis, 12 cm from the nipple, there is a benign intramammary lymph node measuring 6 x 5 x 6 mm with normal ana morphology. This is benign. This correlates with the mammographic focus of concern. In the right breast at the 9:00 axis, 8 cm from the nipple, there is a lymph node measuring 0.7 x 0.5 x 0.4 cm with normal multiple morphology. This is benign. This correlates with the other mammographic focus of concern. MM/MM tomosynthesis added view BI IMPRESSION: Benign findings bilateral breasts. No findings suspicious for malignancy. Recommend the patient resume annual screening mammography in one year. OVERALL ASSESSMENT: Mammography: BI-RADS 2 - Benign Findings Ultrasound: BI-RADS 2 - Benign Findings RECOMMENDATION: 1 year F/U This patient's information was entered into a reminder system with a target due date for their next mammogram.
== END 2023-05-20 14:33 | disposition home or self-care (01) ==
LOC: HO.MAMMO 14:32
PROVIDERS: PCP Family Medicine; Visit Provider Family Medicine
DX: N64.89 Other specified disorders of breast (principal)
CPT/HCPCS: 76642; 77062; 77066

== ENCOUNTER 2023-08-05 10:50 | Outpatient (REF) | payer BC, SELFPAY ==
[2023-08-05 14:12] LABS: Creatinine Urine 133.78 mg/dL; Microalbum/Creatinine Ratio Ur 4.4 ug/mg cr (<30)
[2023-08-05 14:29] LABS: Alanine Aminotransferase 16 U/L (0-31); Albumin Level 4.4 g/dL (3.5-5.0); Alkaline Phosphatase 88 U/L (39-117); Anion Gap 12 (12-20); Aspartate Amino Transferase 15 U/L (5-31); Bilirubin Total 0.4 mg/dL (0.0-1.0); Blood Urea Nitrogen 15 mg/dL (9-16); Calcium 9.7 mg/dL (8.4-10.2); Carbon Dioxide 28 mmol/L (22-29); Chloride 103 mmol/L (96-108); Estimated Glomerular Filt Rate > 60; Glucose Random 89 mg/dL (60-115); Potassium 3.6 mmol/L (3.3-5.1); Sodium 139 mmol/L (135-145); Total Protein 7.8 g/dL (6.5-8.0)
[2023-08-05 14:31] LABS: Cholesterol 182 mg/dL (<200); HDL Cholesterol 42 mg/dL (>40); LDL Cholesterol Calculated 86 mg/dL (<100); Triglycerides 273 mg/dL (<150)
[2023-08-05 14:33] LABS: Reflex LDLD? No
[2023-08-05 14:45] LABS: Folate 8.4 ng/mL (> or = 4.0); Vitamin B12 441 pg/mL (200-900)
[2023-08-05 15:06] LABS: Free T4 (Free Thyroxine) 0.95 ng/dL (0.71-1.85)
== END 2023-08-05 10:51 | disposition home or self-care (01) ==
LOC: HO.HHCL 10:50
PROVIDERS: Visit Provider Family Medicine
DX: F41.1 Generalized anxiety disorder (principal); F41.0 Panic disorder [episodic paroxysmal anxiety]; E11.9 Type 2 diabetes mellitus without complications
CPT/HCPCS: 36415; 80053; 80061; 82043; 82570; 82607; 82746; 84439; 84443

== ENCOUNTER 2023-08-06 13:13 | Outpatient (REF) | payer BC, SELFPAY ==
[2023-08-06 16:30] LABS: Free T4 (Free Thyroxine) 0.94 ng/dL (0.71-1.85); Thyroid Stimulating Hormone 1.69 uIU/mL (0.32-4.0)
[2023-08-08 09:22] LABS: Thyroglobulin Antibodies <1 IU/mL (< or = 1)
== END 2023-08-06 13:14 | disposition home or self-care (01) ==
LOC: HO.HHCL 13:13
PROVIDERS: Visit Provider Family Medicine
DX: R94.6 Abnormal results of thyroid function studies (principal)
CPT/HCPCS: 36415; 84439; 84443; 86800

== ENCOUNTER 2024-01-17 17:25 | Outpatient (REF) | payer OTHER, SELFPAY | END 2024-01-17 17:26 | disposition home or self-care (01) | LOC: HO.HHCLNP 17:25 | PROVIDERS: Visit Provider Emergency Medicine | DX: H66.001 Acute suppurative otitis media without spontaneous rupture of ear drum, right ear (principal) | CPT/HCPCS: 87070 ==

== ENCOUNTER → 2024-04-06 14:26 | Outpatient (REF) | payer OTHER, SELFPAY ==
--- NOTE | 2024-04-06 14:31 | CA_ITS ---
Transthoracic Echocardiogram Patient (Last, First, Middle): Alejandra Dietz, Gender: Female Date of : 1975 Age: 48 Procedure Date: 04/06/2024 Procedure Type: Transthoracic Echocardiogram Location: OP Height: 157.48 cm Weight: 86.18 kg BSA: 1.87 m2 Heart Rate: 94 bpm BP: 122 / 70 [address] Roller Operator: SB Referring MD: Clau Nguyen MD Symptoms: TYPE 2 DM E11.9, TIA G45.9 Study Quality: Adequate ECG Rhythm: Sinus Conclusions: - The left ventricular systolic function is normal. The calculated ejection fraction is 59% by biplane method. - There is no evidence of interatrial shunt by color Doppler and contrast. - No obvious valvular pathology seen on this study. Findings Left Ventricle Normal left ventricular cavity size. There is normal left ventricular wall thickness. The left ventricular systolic function is normal. The calculated ejection fraction is 59% by biplane method. There is no evidence of regional wall motion abnormalities. Diastolic function is normal for age. Right Ventricle Normal right ventricular cavity size and systolic function. Atria Both atria are normal in size. There is no evidence of interatrial shunt by color Doppler and contrast. (with rest and valsalva). Aortic Valve There is a normal trileaflet aortic valve. There is no aortic valve stenosis. There is no aortic valve regurgitation. Mitral Valve The mitral valve appears normal. There is no mitral valve regurgitation. There is no mitral valve stenosis. Tricuspid Valve There is mild tricuspid valve regurgitation. There is no evidence of pulmonary hypertension. Great Vessels The asc aorta is normal in size. Venous The inferior vena cava was not well visualized. Pericardium/Pleural There is no evidence of pericardial effusion. Prior Study Comparison No prior study available for comparison. Recommendations, Care & Conclusions No obvious valvular pathology seen on this study. Measurements 2D Linear Measurements IVSd: 0.86 0.6-0.9/0.6-1.0 cm LVIDd: 4.65 3.9-5.3/4.2-5.9 cm LVIDd Index: 2.49 2.4-3.2/2.2-3.1 cm/m2 LVIDs: 3.11 2.0-3.6 cm LVPWd: 0.70 0.7-1.1 cm LA Diam: 3.70 2.7-3.8/3.0-4.0 cm LAIDs Index: 1.98 1.5-2.3 cm/m2 LV Mass: 144.50 67-162/88-224 g LV Mass Index: 77.27 43-95/49-115 g/m2 LVOT Diam: 1.90 3.0+(-)1.3 cm 2D Systolic Function EF 4C: 57.80 >55% EF 2C: 58.80 >55% EF BiP: 58.60 >55% Mitral Valve MV Pk E: 0.90 MV PK A: 1.02 MV Decel Time: 120.00 E/A: 0.90 E'Lateral: 7.72 E'Medial: 6.85 E/E' Med: 13.10 E/E' Lat: 11.60 PHT: 35.00 MVA PHT: 6.29 Decel [place]: 7.44 Aortic Valve AoV Pk Satnam: 1.42 AoV Mn Satnam: 1.02 AoV VTI: 0.29 AoV Pk Grad: 8.00 Aov Mn Grad: 5.00 JESSICA Cont.VTI: 1.59 JESSICA: 1.56 LVOT LVOT Pk Satnam: 0.78 LVOT Mn Satnam: 0.53 LVOT VTI: 0.16 LVOT Pk Grad: 2.00 LVOT Mn Grad: 1.00 LVOT Diam: 1.90 LVOT Area: 2.84 Diastolic Function MV Pk E: 0.90 MV Pk A: 1.02 E/A: 0.90 E'Medial: 6.85 E/E' Med: 13.10 E' Laterial: 7.72 E/E' Lat: 11.60 Right Ventricle TAPSE (mm): 24.90 TVS' Satnam: 14.90 Tricuspid Valve TR Pk Satnam: 2.36 TR Pk Grad: 22.00 RA Press: 3.00 RVSP: 25.00 Great Vessels Aorta Sinus of Valsalva: 2.60 2.0-3.5 cm Ao Asc: 2.30 2.1-3.4 cm Pulmonary Valve PV Pk Satnam: 1.49 PV Min Satnam: 1.05 Peak PV Grad: 9.00 PV Mn Grad: 5.00 Updated in Other Vendor System with Status of Final Tono Mendosa MD electronically signed on 04/06/2024 4:10:06 PM with status of Final
== END ==
LOC: HO.CARD 14:26
PROVIDERS: PCP Family Medicine; Visit Provider Family Medicine
DX: G45.9 Transient cerebral ischemic attack, unspecified (principal); E11.9 Type 2 diabetes mellitus without complications
CPT/HCPCS: 93306

== ENCOUNTER → 2024-04-06 14:31 | Outpatient (BNV) | payer OTHER, SELFPAY | PROVIDERS: PCP Family Medicine; Visit Provider Internal Medicine | DX: I36.1 Nonrheumatic tricuspid (valve) insufficiency (principal) | CPT/HCPCS: 93306 ==

== ENCOUNTER 2024-06-23 16:17 | Outpatient (REF) | payer OTHER, SELFPAY ==
[2024-06-23 17:59] LABS: Creatinine Urine 46.89 mg/dL; Microalbumin Urine < 5.0 mg/L
[2024-06-23 18:37] LABS: Alanine Aminotransferase 29 U/L (0-31); Albumin Level 4.5 g/dL (3.5-5.0); Alkaline Phosphatase 109 U/L (39-117); Anion Gap 14 (12-20); Aspartate Amino Transferase 20 U/L (5-31); Bilirubin Total 0.4 mg/dL (0.0-1.0); Blood Urea Nitrogen 8 mg/dL (9-16); Carbon Dioxide 25 mmol/L (22-29); Chloride 107 mmol/L (96-108); Cholesterol 126 mg/dL (<200); Estimated Glomerular Filt Rate > 60; Glucose Random 144 mg/dL (60-115); HDL Cholesterol 40 mg/dL (>40); LDL Cholesterol Calculated 58 mg/dL (<100); Potassium 3.7 mmol/L (3.3-5.1); Sodium 142 mmol/L (135-145); Total Protein 7.7 g/dL (6.5-8.0); Triglycerides 144 mg/dL (<150)
[2024-06-23 19:09] LABS: Reflex LDLD? No
== END 2024-06-23 16:18 | disposition home or self-care (01) ==
LOC: HO.HHCL 16:17
PROVIDERS: Visit Provider Family Medicine
DX: E11.9 Type 2 diabetes mellitus without complications (principal); E78.2 Mixed hyperlipidemia; R32 Unspecified urinary incontinence
CPT/HCPCS: 36415; 80053; 80061; 82570

== ENCOUNTER 2024-07-22 08:58 | Outpatient (REF) | payer OTHER, SELFPAY ==
[2024-07-22] MEDS: iohexoL 350 MG/ML 75 ML INFUS..BTL 85 ML IV (09:47)
== END 2024-07-22 08:59 | disposition home or self-care (01) ==
LOC: HO.CT 08:58
PROVIDERS: PCP Family Medicine; Visit Provider Family Medicine
DX: E27.9 Disorder of adrenal gland, unspecified (principal)
CPT/HCPCS: 74170; Q9967

== ENCOUNTER 2024-10-23 07:49 | Outpatient (AMB) | payer OTHER, SELFPAY ==
--- OUTSIDE RECORDS SUMMARY | 2024-10-23 07:51 | XMS_ITS | Encounter Summary ---
Author Organization [employer] Address [address] [facility] [place] [address] Care Team Providers Care Director Of Exhibit Development Name Role Phone Clau Nguyen MD Primary Care Provider [phone] Misael Gardner Unavailable Unavailable Reason for Visit * Reason Onset Date Comments Med Refill 06/27/2023 Encounter Details Date Type Department Care Team ([facility] st Contact Info) Description 06/27/2023 Refill [facility] [address] [place] [address] Misael Gardner FNP Social History Tobacco Use Types Packs/Day Years Used Date Smoking Tobacco: Never Passive Smoke Exposure: Never Smokeless Tobacco: Never Depression Answer Date Recorded Patient Health Questionnaire-9 Score 8 06/18/2023 Housing Stability Answer Date Recorded What is your housing situation today? I have padilla orellana 06/27/[address] you li ve. Do you have problems with any of the following? None of the above 06/27/2023 Food Insecurity Answer Date Recorded Within the past 12 months, y ou worried that your food would run out before you got money to buy more: Never True 06/27/2023 Within the past 12 months,th e food you bought just didn't last and you didn't have enough money to get more: Never True Transportation Answer Date Recorded In the past 12 months, has l ack of transportation kept you from medical appts, meetings, work or from getting things needed for daily living? No 06/27/2023 Utilities Answer Date Recorded In the past 12 months, has t he electric, gas, oil or water company threatened to shut off services in your home? No 06/27/2023 Depression Answer Date Recorded Patient Health Questionnaire-2 Score 2 06/18/2023 Comments Unknown Sex and Gender Information Value Date Recorded Sex Assigned at Female 07/09/2022 10:15 AM EDT Legal Sex Female 10:15 AM EDT Gender Identity Female 07/09/2022 10:15 AM EDT Sexual Orientation Straight 07/15/2023 12 :26 PM EST documented as of this encounter Plan of Treatment Not on file documented as of this encounter Visit Diagnoses Not on filedocumented in this encounter Additional Health Concerns Assessment Noted Time PHQ-9 Depression Total Score: 8 06/18/20 23 1:56 PM EDT documented as of this encounter Care Teams Director Of Exhibit Development Relationship Specialty Start Date End Date Clau Nguyen MD [address] [place] [address] PCP - General Family Medicine 01/05/21 Misael Gardner FNP [address] [place] [address] Nurse Practitioner Family Medicine 08/13/23 documented as of this encounter
--- OUTSIDE RECORDS SUMMARY | 2024-10-23 07:51 | XMS_ITS | Encounter Summary ---
Author Organization [employer] Address [address] [facility] [address] [place] [address] Care Team Providers Care Hazardous Materials Analyst Name Role Phone Clau Nguyen MD Primary Care Provider [phone] Misael Gardner Unavailable Unavailable Reason for Visit * Reason Onset Date Comments Med Refill 09/20/2023 Encounter Details Date Type Department Care Team (Late st Contact Info) Description 09/20/2023 Refill [facility] [address] [place] [address] Misael Gardner FNP Generalized anxiety disorder with panic attacks Social History Tobacco Use Types Packs/Day Years Used Date Smoking Tobacco: Never Passive Smoke Exposure: Never Smokeless Tobacco: Never Depression Answer Date Recorded Patient Health Questionnaire-9 Score 6 08/26/2023 Patient Health Questionnaire-9 Score 6 08/26/2023 Last PHQ-9: Questionnaire Data Not on file 1 10/27/2022 Housing Stability Answer Date Recorded What is [...] Date Recorded Patient Health Questionnaire-2 Score 2 08/26/2023 Comments Unknown Sex and Gender Information Value Date Recorded Sex Assigned at Female 07/09/2022 10:15 AM EDT Legal Sex Female 10:15 AM EDT Gender Identity Female 07/09/2022 10:15 AM EDT Sexual Orientation Straight 07/15/2023 12 :26 PM EST documented as of this encounter Plan of Treatment Not on file documented as of this encounter Visit Diagnoses Diagnosis Generalized anxiety disorder with panic attacks documented in this encounter Additional Health Concerns Assessment Noted Time PHQ-9 Depression Total Score: 6 08/26/20 23 11:26 AM EST documented as of this encounter Care Teams Hazardous Materials Analyst Relationship Specialty Start Date End Date Clau Nguyen MD [address] [place] [address] PCP - General Family Medicine 01/05/21 Misael Gardner FNP [address] [place] [address] Nurse Practitioner Family Medicine 08/13/23 documented as of this encounter
--- OUTSIDE RECORDS SUMMARY | 2024-10-23 07:51 | XMS_ITS | Encounter Summary ---
Author Organization [employer] Address [address] [place] [address] 7 [place] [address] Care Team Providers Care Associate Sales Representative Name Role Phone Clau Nguyen MD Primary Care Provider [phone] Misael Gardner Unavailable Unavailable Reason for Referral * Consultation (STAT) - Authorized Specialty Diagnoses / Procedures Referred By Tony mendez Referred To Contact Orthopaedic Surgery Diagnoses Calcific tendonitis of left shoulder Acute pain of left shoulder Dilma Valentine MD [address] [place] [phone] Phone: tel: fax: [facility] [address] [place] [address] Phone: tel: Referral ID Status Reason Start Date Expiration Date Visits Requested Visits Authorized [id number] Authorized Specialty Services Required 09/29/2024 09/29/2025 1 1 Reason for Visit * Reason Comments Shoulder Pain Fever Vomiting Diarrhea Encounter Details Date Type Department Care Team (Latest Contact Info) Description 09/29/2024 2:20 PM EST Office Visit [facility] [address] [place] [phone] Dilma Valentine MD [address] [place] [phone] Calcific tendonitis of left shoulder (Primary Dx); Acute pain of left shoulder; Viral gastroenteritis Social History Tobacco Use Types Packs/Day Years Used Date Smoking Tobacco: Never Passive Smoke Exposure: Never Smokeless Tobacco: Never Alcohol Use Standard Drinks/Week Comments Never 0 (1 standard drink = 0.6 oz pur e alcohol) Alcohol Answer Date Recorded Frequency of Alcohol Consumption Not on file 03/17/2024 Average Number of Drinks Not on file 024 Frequency of Binge Drinking Not on file 05/2024 Score 0 03/17/2024 Depression Answer Date Recorded Patient Health Questionnaire-9 Score 8 03/23/2024 Patient Health Questionnaire-9 Score 8 03/23/2024 Last PHQ-9: Questionnaire Data Not on file 0 03/23/2024 Housing Stability Answer Date Recorded What is your housing situation today? I have padilla orellana 03/09/[address] you li ve. Do you have problems with any of the following? Pests such as bugs, ants, or mice;Mold 03/09/2024 Food Insecurity Answer Date Recorded Within the past 12 months, y ou worried that your food would run out before you got money to buy more: Often true 03/09/2024 Within the past 12 months,th e food you bought just didn't last and you didn't have enough money to get more: Often true 09/2023 Transportation Answer Date Recorded In the past 12 months, has l ack of transportation kept you from medical appts, meetings, work or from getting things needed for daily living? No 03/09/2024 Utilities Answer Date Recorded In the past 12 months, has t he electric, gas, oil or water company threatened to shut off services in your home? No 03/09/2024 Depression Answer Date Recorded Patient Health Questionnaire-2 Score 3 03/23/2024 Internet Access Answer Date Recorded Internet Access Q1 Yes 05/11/2024 Internet Access Q2 Not on file 05/11/2024 Comments Unknown Sex and Gender Information Value Date Recorded Sex Assigned at Female 07/09/2022 10:15 AM EDT Legal Sex Female 10:15 AM EDT Gender Identity Female 07/09/2022 10:15 AM EDT Sexual Orientation Straight 07/15/2023 12 :26 PM EST documented as of this encounter Last Filed Vital Signs Vital Sign Reading Time Taken Comments Blood Pressure 133/72 09/29/2024 2:49 PM EST Pulse 103 09/29/2024 2:49 PM EST Temperature 37.6 ??C (99.7 ??F) 09/29/2024 2:49 PM ES T Respiratory Rate 18 09/29/2024 2:49 PM EST Oxygen Saturation 96% 09/29/2024 2:49 PM EST Inhaled Oxygen Concentration - - Weight - - Height - - Body Mass Index - - documented in this encounter Progress Notes * Dilma Russ MD - 09/29/2024 2:20 PM EST SUBJECTIVE: Alejandra Dietz is a 49 y.o. year old female who presents for sick visit . Acute Concerns: Patient reports 1 week of acute left shoulder pain, reports she went to ED for evaluation,XRAY was done she was diagnose with calcified tendonitis of left shoulder, she has not being seen yet by orthopedics Patient also reports 2 days of nausea, vomiting and diarrhea (watery) several times, malaise, body aches Social History Social History Narrative Not on file Patient Active Problem List Diagnosis History of cholecystectomy Hypertriglyceridemia Obesity (BMI 30.0-34.9) Type 2 diabetes mellitus (CMS/HCC) Elevated blood pressure reading Mixed dyslipidemia Mood disorder (CMS/HCC) History of partial hysterectomy Generalized anxiety disorder with panic attacks Insomnia Kidney stones Positive PPD, treated PTSD (post-traumatic stress disorder) TIA (transient ischemic attack) Acute anxiety Left adrenal mass (CMS/HCC) Urinary incontinence Calcific tendonitis of left shoulder Acute pain of left shoulder Viral gastroenteritis Family History Problem Relation Name Age of Onset Diabetes type II Mother Hypertension Mother Other (substance use) Father Osteogenesis imperfecta Sister Diabetes type II Brother Hypertension Brother Mental illness Brother Asthma Son Colon cancer Maternal Grandmother Colon cancer Paternal Grandmother Review of Systems Constitutional: Positive for chills and fatigue. HENT: Negative. Respiratory: Negative. Cardiovascular: Negative. Gastrointestinal: Positive for abdominal distention, abdominal pain, diarrhea, nausea and vomiting.Negative for anal bleeding, blood in stool, constipation and rectal pain. Musculoskeletal: Positive for arthralgias and myalgias. OBJECTIVE: Vitals: 09/29/24 1449 BP: 133/72 BP Location: Right arm Patient Position: Sitting BP Cuff Size: Large adult Pulse: 103 Resp: 18 Temp: 99.7 ??F (37.6 ??C) TempSrc: Oral SpO2: 96% Physical Exam Constitutional: Appearance: Normal appearance. Cardiovascular: Rate and Rhythm: Normal rate and regular rhythm. Pulmonary: Breath sounds: Normal breath sounds. Abdominal: General: Abdomen is flat. Palpations: Abdomen is soft. Tenderness: There is abdominal tenderness. Musculoskeletal: Left shoulder: Tenderness present. Decreased range of motion. Neurological: Mental Status: She is alert. Follow Up: No follow-ups on file. Current Outpatient Medications on File Prior to Visit Medication Sig Dispense Refill Aspirin Low Dose 81 MG EC tablet Take 1 tablet (81 mg) by mouth Once per day. 90 tablet 3 atorvastatin (Lipitor) 80 MG tablet Take 1 tablet (80 mg) by mouth Once per day. 90 tablet 3 Blood Glucose Monitoring Suppl (FreeStyle glucose monitoring) kit 1 each if needed. Dulaglutide 1.5 MG/0.5ML solution auto-injector Inject 0.5 mL (1.5 mg) under the skin 1 (one) time per week. 2 mL 1 glucose blood test strip 1 each by Other route if needed. Use as instructed hydrOXYzine HCl (Atarax) 10 MG tablet Take 1-2 tablets (10-20 mg) by mouth every 6 (six) hours if needed for anxiety. 100 tablet 3 Lancets 28G misc LORazepam (Ativan) 1 MG tablet Take 1 or 2 tablets by mouth every morning and take 1 tablet in the afternoon / evening. Maximum daily dose 3 tablets. 84 tablet 3 metFORMIN XR (Glucophage-XR) 500 MG 24 hr tablet Take 2 tablets (1,000 mg) by mouth with breakfast and with evening meal. Do not crush, chew, or split. 180 tablet 3 sodium chloride (Guthrie Nasal Cobalt) 0.65 % nasal spray Administer 1 spray into each nostril if needed for congestion. 30 mL 12 traZODone (Desyrel) 50 MG tablet Take 0.5-1 tablets (25-50 mg) by mouth at bedtime. 30 tablet 5 venlafaxine XR (Effexor XR) 75 MG 24 hr capsule TAKE 1 CAPSULE BY MOUTH EVERY DAY AFTER 1 WEEK OF 37.5 MG 90 capsule 3 No current facility-administered medications on file prior to visit. Problem List Items Addressed This Visit Calcific tendonitis of left shoulder - Primary Relevant Orders Referral to Orthopaedic Surgery Acute pain of left shoulder Relevant Medications acetaminophen (Tylenol Extra Strength) 500 MG tablet Other Relevant Orders Referral to Orthopaedic Surgery Viral gastroenteritis Drink plenty of fluids (small sips at a time) and rest Zofran and imodium PRN Acetaminophen PRN Relevant Medications ondansetron (Zofran) 4 MG tablet loperamide (Imodium A-D) 2 MG tablet acetaminophen (Tylenol Extra Strength) 500 MG tablet documented in this encounter Miscellaneous Notes * Assessment & Plan Note - Dilma Russ MD - 09/29/2024 4:00 PM EST Associated Problem(s): Viral gastroenteritis Drink plenty of fluids (small sips at a time) and rest Zofran and imodium PRN Acetaminophen PRN documented in this encounter Plan of Treatment Scheduled Referrals Name Type Priority Associated Diagnoses Order Schedule Referral to Orthopaedic Surgery Outpatient Referral STAT Calcific tendonitis of left shoulder Acute pain of left shoulder Expected: 09/29/2024 (Approximate), Expires: 09/29/2025 documented as of this encounter Visit Diagnoses Diagnosis Calcific tendonitis of left shoulder- Primary Acute pain of left shoulder Viral gastroenteritis Intestinal infection due to other organism, NEC documented in this encounter Additional Health Concerns Assessment Noted Time PHQ-9 Depression Total Score: 8 03/23/20 24 9:09 AM EDT documented as of this encounter Care Teams Associate Sales Representative Relationship Specialty Start Date End Date Clau Nguyen MD [address] [place] [phone] PCP - General Family Medicine 01/05/21 Misael Gardner FNP [address] [place] [phone] Nurse Practitioner Family Medicine 08/13/23 documented as of this encounter
--- OUTSIDE RECORDS SUMMARY | 2024-10-23 07:51 | XMS_ITS | Clinical Summary ---
Author Organization [facility] Address [address] [place] [address] Care Team Providers Care Business Center Representative Name Role Phone Tomy Ortez MD Primary Care Provider Unavail able Surgical History Surgery Date Site/Laterality Comments HYSTERECTOMY PROCEDURE: HISTORICAL HYSTERECTOMY; COMMENT: without BSO, for fibroid OTHER SURGICAL HISTORY PROCEDURE: HISTORICAL UNSPECIFIED SURGERY; COMMENT: nasal surgery for chronic sinusitis CHOLECYSTECTOMY PROCEDURE: [place] CHOLECYSTECTOMY TONSILLECTOMY PROCEDURE: HISTORICAL TONSILLECTOMY SECTION 1994 PROCEDURE: HISTORICAL DELIVERY Family History Medical History Relation Name Comments Hyperlipidemia Brother 1 Diabetes Brother 2 Diabetes Daughter 1 No Known Problems Father Colon cancer Maternal Grandfather Diabetes Mother Colon cancer Paternal Grandmother Other: brittle bone disease Sister 1 Stroke Sister 1 Other: brittle bone disease Sister 2 Diabetes Uncle maternal Breast cancer Neg Hx Relation Name Status Comments Brother 1 Alive ? colitis Brother 2 Alive Daughter 1 Alive Daughter 2 Alive healthy Father Alive hypertension Maternal Grandfather Maternal Grandmother Mother Alive diabetes, ? col itis Paternal Grandfather unknown Paternal Grandmother Sister 1 Alive Sister 2 Alive Son Alive depression/anxi ety Uncle maternal Alive Social History Tobacco Use Types Packs/Day Years Used Date Smoking Tobacco: Never Smokeless Tobacco: Never Alcohol Use Standard Drinks/Week Comments Yes 0 (1 standard drink = 0.6 oz pur e alcohol) Comments Unknown Sex and Gender Information Value Date Recorded Sex Assigned at Not on file Legal Sex Female 3:40 AM EST Gender Identity Not on file Sexual Orientation Not on file Obstetrics History Plan of Treatment Health Maintenance Due Date Last Done Comments Breast Cancer Screening 1974 Hepatitis B Vaccines (1 of 3 - 19+ 3-dose series) 1993 Cervical Cancer Screening: P ap Smear 1995 DTaP,Tdap,and Td Vaccines (2 - Td or Tdap) 09/10/2021 09/10/2011 COVID-19 Vaccine (1 2023-2 5 season) 2024 Influenza Vaccine (#1) 2024 2, 09/10/2011 Zoster Vaccines (1 of 2) 2024 HIB Vaccines Aged Out No longer eligi ble based on patient's age to complete this topic HPV Vaccines Aged Out No longer eligi ble based on patient's age to complete this topic Hepatitis A Vaccines Aged Out No long er eligible based on patient's age to complete this topic IPV Vaccines Aged Out No longer eligi ble based on patient's age to complete this topic MMR Vaccines Aged Out No longer eligi ble based on patient's age to complete this topic Meningococcal ACWY Vaccine Aged Out N o longer eligible based on patient's age to complete this topic Pneumococcal Vaccine: Pediatrics (0 to 5 Years) and At-Risk Patients (6 to 64 Years) Aged Out No longer eligible b ased on patient's age to complete this topic RSV Immunization Patients Under 20 months Aged Out No longer eligible b ased on patient's age to complete this topic Varicella Vaccines Aged Out No longer eligible based on patient's age to complete this topic Care Teams Business Center Representative Relationship Specialty Start Date End Date Tomy Ortez MD PCP - General Internal Medicine 10/11/15
--- OUTSIDE RECORDS SUMMARY | 2024-10-23 07:51 | XMS_ITS | Encounter Summary ---
Author Organization [employer] Address [address] [facility] 7t [place] [address] Care Team Providers Care Pediatric Psychiatrist Name Role Phone Clau Nguyen MD Primary Care Provider [phone] Misael Gardner Unavailable Unavailable Reason for Visit * Reason Onset Date Comments Med Refill 10/14/2023 Encounter Details Date Type Department Care Team (Late st Contact Info) Description 10/14/[address] [facility] MEDICINE [address] [place] [address] Misael Gardner FNP Generalized anxiety disorder with [...] documented as of this encounter Care Teams Pediatric Psychiatrist Relationship Specialty Start Date End Date Clau Nguyen MD [address] [place] [address] PCP - General Family Medicine 01/05/21 Misael Gardner FNP [address] [place] [address] Nurse Practitioner Family Medicine 08/13/23 documented as of this encounter
--- OUTSIDE RECORDS SUMMARY | 2024-10-23 07:51 | XMS_ITS | Encounter Summary ---
Author Organization [employer] Address [address] [facility] 7t [place] [address] Care Team Providers Care Photolettering Machine Operator Name Role Phone Clau Nguyen MD Primary Care Provider [phone] Misael Gardner Unavailable Unavailable Reason for Visit * Reason Onset Date Comments Med Refill 10/12/2024 Encounter Details Date Type Department Care Team (Late st Contact Info) Description 10/12/2024 Refill [facility] MED & PEDS [address] [place], [place] [phone] Clau Nguyen MD [address] [place], [place] [phone] Social History Tobacco Use Types Packs/Day Years [...] documented as of this encounter Care Teams Photolettering Machine Operator Relationship Specialty Start Date End Date Clau Nguyen MD [address] [place] [address] PCP - General Family Medicine 01/05/21 Misael Gardner FNP [address] [place] [address] Nurse Practitioner Family Medicine 08/13/23 documented as of this encounter
--- OUTSIDE RECORDS SUMMARY | 2024-10-23 07:51 | XMS_ITS | Encounter Summary ---
Author Organization [employer] Address [address] [facility] 7t [place] [address] Care Team Providers Care Fermentation Scientist Name Role Phone Clau Nguyen MD Primary Care Provider [phone] Misael Gardner Unavailable Unavailable Reason for Visit * Reason Onset Date Comments Med Refill 07/15/2023 Encounter Details Date Type Department Care Team ([facility] st Contact Info) Description 07/15/2023 Refill [facility] [address] [place] [address] Misael Gardner FNP Social History Tobacco Use Types Packs/Day Years Used Date Smoking Tobacco: Never Passive Smoke Exposure: Never Smokeless Tobacco: Never Depression Answer Date Recorded Patient Health Questionnaire-9 Score 9 07/18/2023 Patient Health Questionnaire-9 Score 9 07/18/2023 Last PHQ-9: Questionnaire Data Not on file 1 09/17/2022 Housing Stability Answer Date Recorded What is [...] Date Recorded Patient Health Questionnaire-2 Score 2 07/18/2023 Comments Unknown Sex and Gender Information Value [...] documented as of this encounter Care Teams Fermentation Scientist Relationship Specialty Start Date End Date Clau Nguyen MD [address] [place] [address] PCP - General Family Medicine 01/05/21 Misael Gardner FNP [address] [place] [address] Nurse Practitioner Family Medicine 08/13/23 documented as of this encounter
--- OUTSIDE RECORDS SUMMARY | 2024-10-23 07:51 | XMS_ITS | Encounter Summary ---
Author Organization [employer] Address [address] [facility] 7t [place] [address] Care Team Providers Care Vector Control Specialist Name Role Phone Clau Nguyen MD Primary Care Provider [phone] Misael Gardner Unavailable Unavailable Reason for Visit * Reason Onset Date Comments Med Refill 06/27/2023 Encounter Details Date Type Department Care Team (Late st Contact Info) Description 06/27/2023 Refill [facility] MEDICINE [address] [place] [address] Misael Gardner FNP Generalized anxiety disorder with [...] documented as of this encounter Care Teams Vector Control Specialist Relationship Specialty Start Date End Date Clau Nguyen MD [address] [place] [address] PCP - General Family Medicine 01/05/21 Misael Gardner FNP [address] [place] [address] Nurse Practitioner Family Medicine 08/13/23 documented as of this encounter
--- OUTSIDE RECORDS SUMMARY | 2024-10-23 07:51 | XMS_ITS | Encounter Summary ---
Author Organization [employer] Address [address] [place] [address] 7t [place] [address] Care Team Providers Care Certified Medical Coder Name Role Phone Clau Nguyen MD Primary Care Provider [phone] Misael Gardner Unavailable Unavailable Reason for Visit * Reason Onset Date Comments Med Refill 02/25/2023 Encounter Details Date Type Department Care Team (Late st Contact Info) Description 02/25/2023 Refill [facility] MEDICINE [address] [place], [place] [phone] Clau Nguyen MD [address] [place], [place] [phone] Type 2 diabetes mellitus without complication, without long-term current use of insulin ([facility]); Dyslipidemia Social History Tobacco Use Types Packs/Day Years Used Date Smoking Tobacco: Never Passive Smoke Exposure: Never Smokeless Tobacco: Never PHQ-2 Answer Date Recorded Patient Health Questionnaire-2 Score 0 02/01/2023 Comments Unknown Sex and Gender Information Value Date Recorded Sex Assigned at Female 07/09/2022 10:15 AM EDT Legal Sex Female 10:15 AM EDT Gender Identity Female 07/09/2022 10:15 AM EDT Sexual Orientation Straight 07/15/2023 12 :26 PM EST COVID-19 Exposure Response Date Recorded In the last 10 days, have yo u been in contact with someone who was confirmed or suspected to have Coronavirus/COVID-19? No / Unsure 02/12/2023 1:33 PM EDT documented as of this encounter Plan of Treatment Not on file documented as of this encounter Visit Diagnoses Diagnosis Type 2 diabetes mellitus without complication, without long-term current use of insulin ([facility]) Dyslipidemia Other and unspecified hyperlipidemia documented in this encounter Additional Health Concerns Assessment Noted Time PHQ-9 Depression Total Score: 8 02/02/20 23 10:56 AM EDT documented as of this encounter Care Teams Certified Medical Coder Relationship Specialty Start Date End Date Clau Nguyen MD [address] [place] [address] PCP - General Family Medicine 01/05/21 Misael Gardner FNP [address] [place] [address] Nurse Practitioner Family Medicine 08/13/23 documented as of this encounter
--- OUTSIDE RECORDS SUMMARY | 2024-10-23 07:51 | XMS_ITS | Encounter Summary ---
Author Organization [employer] Address [address] [place] [address] 7t [place] [address] Care Team Providers Care Machine Cloth Measurer Name Role Phone Clua Nguyen MD Primary Care Provider [phone] Misael Gardner Unavailable Unavailable Reason for Visit * Reason Onset Date Comments Med Refill 10/14/2023 Encounter Details Date Type Department Care Team (Late st Contact Info) Description 10/14/2023 Refill [facility] MEDICINE [address] [place], [place] [phone] Clau Nguyen MD [address] [place], [place] [phone] Type 2 diabetes mellitus without complication, without long-term current use of insulin ([facility]); Dyslipidemia Social History Tobacco Use Types Packs/Day [...] PM EST documented as of this encounter Miscellaneous Notes * Telephone Encounter - Erica Henry RN - 10/14/2023 12:58 PM EST Call to Kaylyn, ext [phone] regarding insurance questions for Pt.. Kaylyn advised to have Pt call Kaylyn to check on insurance status . Call to Pt with this information and Pt is given number to call [phone]. Pt did write this down and will call right away. No triage at this time. Hi Clau. As you already know, I had Covid for the fourth time the first week of August 2023. My health hasn???t been the same. I have a persistent cough and feverish ever since. My chest feels heavybut I???m attributing it to the nonstop cough. I???m out of work today but I???ve been bedridden the whole weekend and also most days. Vey tired and sore because of the cough. I wish I could go to the walk in clinic but I have no health insurance since my was laid off from his job. Is thereany financial help that I can get from [facility]? documented in this encounter Plan of Treatment Not on file documented as of this encounter Visit Diagnoses Diagnosis Type 2 diabetes mellitus without complication, without long-term current use of insulin ([facility]) Dyslipidemia Other and unspecified hyperlipidemia documented in this encounter Additional Health Concerns Assessment Noted Time PHQ-9 Depression Total Score: 6 08/26/20 23 11:26 AM EST documented as of this encounter Care Teams Machine Cloth Measurer Relationship Specialty Start Date End Date Clau Nguyen MD [address] [place] [address] PCP - General Family Medicine 01/05/21 Misael Gardner FNP [address] [place] [address] Nurse Practitioner Family Medicine 08/13/23 documented as of this encounter
--- OUTSIDE RECORDS SUMMARY | 2024-10-23 07:51 | XMS_ITS | Encounter Summary ---
Author Organization [employer] Address [address] [facility] 7t [place] [address] Care Team Providers Care Elementary Librarian Name Role Phone Clau Nguyen MD Primary Care Provider [phone] Misael Gardner Unavailable Unavailable Reason for Visit * Reason Comments Med Refill Encounter Details Date Type Department Care Team (Late st Contact Info) Description 10/05/[address] [facility] MEDICINE [address] [place], [place] [phone] Clau Nguyen MD [address] [place], [place] [phone] Generalized anxiety disorder with panic attacks Social [...] documented as of this encounter Care Teams Elementary Librarian Relationship Specialty Start Date End Date Clau Nguyen MD [address] [place] [address] PCP - General Family Medicine 01/05/21 Misael Gardner FNP [address] [place] [address] Nurse Practitioner Family Medicine 08/13/23 documented as of this encounter
--- OUTSIDE RECORDS SUMMARY | 2024-10-23 07:51 | XMS_ITS | Encounter Summary ---
Author Organization [employer] Address [address] [facility] 7t [place] [address] Care Team Providers Care Joint Cutter Machine Name Role Phone Clau Nguyen MD Primary Care Provider [phone] Misael Gardner Unavailable Unavailable Encounter Details Date Type Department Care Team (Late st Contact Info) Description 08/18/2023 Orders Only [facility] MED[facility]INE [address] [place], [place] [phone] Clau Nguyen MD [address] [place], [place] [phone] Social History Tobacco Use Types Packs/Day Years [...] Assessment Noted Time PHQ-9 Depression Total Score: 9 07/18/20 23 1:43 PM EST documented as of this encounter Care Teams Joint Cutter Machine Relationship Specialty Start Date End Date Clau Nguyen MD [address] [place] [address] PCP - General Family Medicine 01/05/21 Misael Gardner FNP [address] [place] [address] Nurse Practitioner Family Medicine 08/13/23 documented as of this encounter
--- OUTSIDE RECORDS SUMMARY | 2024-10-23 07:51 | XMS_ITS | Encounter Summary ---
Author Organization [employer] Address [address] [facility] 7t [place] [address] Care Team Providers Care Aboriginal Education Teacher Name Role Phone Clau Nguyen MD Primary Care Provider [phone] Misael Gardner Unavailable Unavailable Encounter Details Date Type Department Care Team (Late st Contact Info) Description 08/05/2023 Orders Only [facility] MEDICINE [address] [place], [place] [phone] Clau Nguyen MD [address] [place], [place] [phone] Abnormal TSH (Primary Dx) Social History Tobacco Use Types Packs/Day Years [...] Procedure Name Priority Date/Time Associated Diagnosis Comments THYROID PEROXIDASE AND THYROGLOBULIN ANTIBODIES Routine 08/06/2023 1:13 PM EST Abnormal TSH TSH Routine 08/06/2023 1:13 PM EST Abnormal TSH T4, FREE Routine 08/06/2023 1:13 PM EST Abnormal TSH documented in this encounter Results * Thyroid Peroxidase And Thyroglobulin Antibodies (08/06/2023 1:13 PM EST) Thyroglobulin Antibodies <1 < or = 1 IU/mL [facility] Comment:THIS TEST WAS PERFOR MED AT:[facility] [address] [id number] TRAVIS MD 08/06/2023 1:13 PM EST 08/06/2023 3:49 PM EST us Clau Nguyen MD LAB BLOOD ORDERABLES Final Resul t [facility] [address] [place] [phone] * TSH (08/06/2023 1:13 PM EST) Thyroid Stimulating Hormone 1.69 0.32 - 4.0 uIU/mL [facility] Comment:TSH 3rd Generation ( [facility]) Blood Venous blood specimen / Unknown 08/06/2023 1:13 PM EST 08/06/2023 3:49 PM EST us Clau Nguyen MD LAB BLOOD ORDERABLES Final Resul t Performing Organization Address City/[facility]/ZIP Co de Phone Number [facility] [address] [place] [phone] * T4, Free (08/06/2023 1:13 PM EST) Free T4 (Free Thyroxine) 0.94 0.71 - 1.85 ng/dL [facility] Blood Venous blood specimen / Unknown 08/06/2023 1:13 PM EST 08/06/2023 3:49 PM EST us Clau Nguyen MD LAB BLOOD ORDERABLES Final Resul t Performing Organization Address City/[facility] Co de Phone Number [facility] [address] [place] [phone] documented in this encounter Visit Diagnoses Diagnosis Abnormal TSH- Primary documented in this encounter Additional Health Concerns Assessment Noted Time PHQ-9 Depression Total Score: 9 07/18/20 23 1:43 PM EST documented as of this encounter Care Teams Aboriginal Education Teacher Relationship Specialty Start Date End Date Clau Nguyen MD [address] [place] [address] PCP - General Family Medicine 01/05/21 Misael Gardner FNP [address] [place] [address] Nurse Practitioner Family Medicine 08/13/23 documented as of this encounter
--- OUTSIDE RECORDS SUMMARY | 2024-10-23 07:51 | XMS_ITS | Encounter Summary ---
Author Organization [employer] Address [address] [facility] 7t [place] [address] Care Team Providers Care Template Worker Name Role Phone Clau Nguyen MD Primary Care Provider [phone] Misael Gardner Unavailable Unavailable Reason for Visit * Reason Onset Date Comments Med Refill 10/07/2024 Encounter Details Date Type Department Care Team (Late st Contact Info) Description 10/07/2024 Refill [facility] MED[facility]INE [address] [place], [place] [phone] Clau Nguyen MD [address] [place], [place] [phone] Mood disorder (CMS/HCC); Generalized anxiety disorder with panic attacks Social [...] as of this encounter Visit Diagnoses Diagnosis Mood disorder (CMS/HCC) Unspecified episodic mood disorder Generalized anxiety disorder with panic attacks documented in this encounter Additional Health Concerns Assessment Noted Time PHQ-9 Depression Total Score: 8 03/23/20 24 9:09 AM EDT documented as of this encounter Care Teams Template Worker Relationship Specialty Start Date End Date Clau Nguyen MD [address] [place] [address] PCP - General Family Medicine 01/05/21 Misael Gardner FNP [address] [place] [address] Nurse Practitioner Family Medicine 08/13/23 documented as of this encounter
--- OUTSIDE RECORDS SUMMARY | 2024-10-23 07:51 | XMS_ITS | Encounter Summary ---
Author Organization [employer] [facility] Address [address] [place] [address] [address] [place] [address] Care Team Providers Care Community Relations Police Lieutenant Name Role Phone Clau Nguyen MD Primary Care Provider [phone] Misael Gardner Unavailable Unavailable Encounter Details Date Type Department Care Team (Late st Contact Info) Description 01/25/2023 Orders Only [facility] MEDICINE [address] [place] [phone] Clau Nguyen MD [address] [place], [place] [phone] Anxiety (Primary Dx); Panic attack Social History Tobacco Use Types Packs/Day Years Used Date Smoking Tobacco: Never Assessed Comments Unknown Sex and Gender Information Value Date Recorded Sex Assigned at Female 07/09/2022 10:15 AM EDT Legal Sex Female 10:15 AM EDT Gender Identity Female 07/09/2022 10:15 AM EDT Sexual Orientation Straight 07/15/2023 12 :26 PM EST documented as of this encounter Plan of Treatment Not on file documented as of this encounter Visit Diagnoses Diagnosis Anxiety- Primary Anxiety state, unspecified Panic attack Panic disorder without agoraphobia documented in this encounter Care Teams Community Relations Police Lieutenant Relationship Specialty Start Date End Date Clau Nguyen MD [address] [place] [phone] PCP - General Family Medicine 01/05/21 Misael Gardner FNP [address] [place] [address] Nurse Practitioner Family Medicine 08/13/23 documented as of this encounter
--- OUTSIDE RECORDS SUMMARY | 2024-10-23 07:51 | XMS_ITS | Clinical Summary ---
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 7.0% -Family Hx DM2 -Pt was interested in bariatric surgery; information of [facility] and [facility] wt management clinic was given. She did not pursue -Continue working on lifestyle modifications -Currently prescribed medication: Metformin ER 500 mg bid -Last lipid profile: 10/05/22 TC 251; TG 656; HDL 37; LDL 120 -Last microalbumin test: overdue -Last foot exam: overdue -Last eye exam: -Immunizations: Pt declines Hep B and PCV20 today, but will get at next visit. - follow up in 3 mo or sooner prn Assessment & Plan (02/01/2023 12:28 PM EDT): -last hb1AC 7 in 09/2022 -Continue metformin -pt has apt w PCP in 2 weeks for f up per pt of her DM Elevated blood pressure reading 02/01/2023 Assessment & Plan (06/28/2024 11:34 AM EDT): -Goal BP < 130/80 according to ACC/AHA 2017 guideline, < 140/90 according to JNC-8 -BP normal today -Continue working on lifestyle modifications -Continue checking home BP. -If persistently elevated > 140/90, will consider pharmacological treatment with ARB or consider starting SGLT-2 inhibitor for DM2. - Follow up in 3 mo or sooner if any problem arises Assessment & Plan (03/20/2024 6:42 PM EDT): -Goal BP < 130/80 according to ACC/AHA 2017 guideline, < 140/90 according to JNC-8 -BP normal today -Continue working on lifestyle modifications -Continue checking home BP. -If persistently elevated > 140/90, will consider pharmacological treatment with ARB or consider starting SGLT-2 inhibitor for DM2. - Follow up in 3 mo or sooner if any problem arises Assessment & Plan (08/18/2023 6:29 AM EST): -Goal BP < 130/80 according to ACC/AHA 2017 guideline, < 140/90 according to JNC-8 -BP normal today -Continue working on lifestyle modifications -Continue checking home BP. -If persistently elevated > 140/90, will consider pharmacological treatment with ARB or consider starting SGLT-2 inhibitor for DM2. - Follow up in 6 mo or sooner if any problem arises Assessment & Plan (05/25/2023 4:58 PM EDT): -Goal BP < 130/80 according to ACC/AHA 2017 guideline, < 140/90 according to JNC-8 -BP normal today -Continue working on lifestyle modifications -Continue checking home BP. -If persistently elevated > 140/90, will consider pharmacological treatment with ARB or consider starting SGLT-2 inhibitor for DM2. - Follow up in 3 mo or sooner if any problem arises Assessment & Plan (02/13/2023 6:26 PM EDT): -Goal BP < 130/80 according to ACC/AHA 2017 guideline, < 140/90 according to JNC-8 -Continue working on lifestyle modifications -Continue checking home BP. -If persistently elevated > 140/90, will consider pharmacological treatment with ARB or consider starting SGLT-2 inhibitor for DM2. - Follow up in 3 mo or sooner if any problem arises Assessment & Plan (02/01/2023 12:27 PM EDT): Today BP elevated -possible in setting of current anxiety -advised pt to bring at her next visit w PCP -scheduled x 02/12/2023 daily BP readings -to confirm if actual HTN or only reactive -pt confirms that has a B machine at home History of cholecystectomy 08/07/2022 Assessment & Plan (02/13/2023 6:18 PM EDT): - normal BM Hypertriglyceridemia 08/07/2022 Assessment & Plan (03/20/2024 6:47 PM EDT): - last lipid profile: 08/05/23 TC 182; TG 273; HDL 42; LDL 86, improving TG level 10/05/22 TG 656 - continue working on lifestyle modification - continue atorvastatin 80 mg at bedtime Assessment & Plan (12/22/2023 4:16 PM EDT): - last lipid profile: 08/05/23 TC 182; TG 273; HDL 42; LDL 86, improving TG level 10/05/22 TG 656 - continue working on lifestyle modification - continue atorvastatin 10 mg at bedtime Assessment & Plan (08/18/2023 6:35 AM EST): - last lipid profile: 08/05/23 TC 182; TG 273; HDL 42; LDL 86, improving TG level 10/05/22 TG 656 - continue working on lifestyle modification - continue atorvastatin 10 mg at bedtime Assessment & Plan (05/25/2023 5:00 PM EDT): - last lipid profile: 10/05/22 TC 251; TG 656; HDL 37; LDL 120 - continue working on lifestyle modification - continue atorvastatin 10 mg at bedtime - check lipid profile and LFT prior to next visit Assessment & Plan (02/13/2023 6:09 PM EDT): - last lipid profile: 10/05/22 TC 251; TG 656; HDL 37; LDL 120 - continue working on lifestyle modification - continue atorvastatin 10 mg at bedtime - check lipid profile and LFT prior to next visit Obesity (BMI 30.0-34.9) 08/07/2022 Assessment & Plan (03/20/2024 6:45 PM EDT): - continue working on lifestyle modification Assessment & Plan (02/01/2023 12:27 PM EDT): Life style changes advised Kidney stones 10/10/2016 Assessment & Plan (03/20/2024 6:45 PM EDT): - adequate hydration Positive PPD, 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 Overview (03/27/2023): Last Assessment & Plan: Treated with INh x 6 months Resolved Problems Problem Noted Date Diagnosed Date Resolved Date Renal stones 03/27/2023 05/25/2023 Anxiety 08/07/2022 02/13/2023 Assessment & Plan (02/13/2023 6:20 PM EDT): - last ISRAEL -7 score 15 - continue sertraline 25 mg daily - continue judicious use of lorazepam 0.5 mg daily prn - waiting for an appt with outpatient therapist and psychiatrist Assessment & Plan (02/01/2023 12:35 PM EDT): From symptoms pt seems to be suffering from ISRAEL/panic disorder ,denies depression ,hallucinations nor karmen PHQ9 today is 8 ---x insomnia,dec energy,dec concentration, overeating that all can be associated w anxiety -of note had labs in 01/2023 Chem,glu,hb normal and TSH wnl in 09/2022 -states had cardiac workup before in previous hospitalizations x palpitations w no findings -seems all symptoms are associated w her anxiety -BH came today to eval pt and establish care -discussed w pt in [place] about meditation,breathing exercises -advised to start meds px by her PCP today -sertraline daily and ativan prn- discussed how to take meds and need to be careful w BDZ x respiratory depression risk -f up w PCP in 2 weeks Obesity (BMI 30-39.9) 10/10/20162023 Prediabetes 01/14/2014 03/27/2023 Encounters Date Type Department Care Team Description 10/12/2024 Refill [facility] CHC MED & PEDS [address] [place], [place] [phone] Clau Nguyen MD 10/07/2024 Refill [facility] MEDICINE [address] [place] [address] Clau Nguyen MD Mood disorder (CMS/HCC); Generalized anxiety disorder with panic attacks 10/05/2024 Refill [facility] MEDICINE [address] [place] [address] Clau Nguyen MD Generalized anxiety disorder with panic attacks 10/05/2024 Refill [facility] MEDICINE [address] [place] [address] Clau Nguyen MD Generalized anxiety disorder with panic attacks 09/29/2024 2:20 PM EST Office Visit [facility] WALK[facility]IN [facility] [address] [place] [address] Dilma Valentine MD Calcific tendonitis of left shoulder (Primary Dx); Acute pain of left shoulder; Viral gastroenteritis 08/31/2024 Telephone [facility] MEDICINE [address] [place] [address] Sue Desai MA september08/05/2024 Telephone [facility] MEDICINE [address] [place] [address] Clau Nguyen MD 08/04/2024 Telephone [facility] MEDICINE [address] [place] [address] Clau Nguyen MD from Last 3 Months Immunizations Name Administration Dates Next Due Influenza injectable quadriv alent preservative free 08/05/2023 Influenza, IIV3, injectable 05/30/2012, 2 MMR 02/09/2022,01/11/2022 Moderna Covid-19 Vaccine 12+ 01/11/2022,02/03/20 21,01/05/2021 Pfizer Covid-19 Vaccine 12+ 08/05/2023 Pneumococcal Conjugate PCV 20 08/05/2023 Tdap 03/09/2021,09/10/2011 Family History Medical History Relation Name Comments Diabetes type II Brother Hypertension Brother Mental illness Brother substance use Father Colon cancer Maternal Grandmother Diabetes type II Mother Hypertension Mother Colon cancer Paternal Grandmother Osteogenesis imperfecta Sister Asthma Son Relation Name Status Comments Brother Father Maternal Grandmother Mother Paternal Grandmother Sister Son Social History Tobacco Use Types Packs/Day Years Used Date Smoking Tobacco: Never Passive Smoke Exposure: Never Smokeless Tobacco: Never Tobacco Cessation:Counseling Given: Not Answered Alcohol Use Standard Drinks/Week Comments Never 0 [...] Orientation Straight 07/15/2023 12 :26 PM EST Last Filed Vital Signs Vital Sign Reading Time Taken Comments Blood Pressure 133/72 09/29/2024 2:49 PM EST Pulse 103 09/29/2024 2:49 PM EST Temperature 37.6 ??C (99.7 ??F) 09/29/2024 2:49 PM ES T Respiratory Rate 18 09/29/2024 2:49 PM EST Oxygen Saturation 96% 09/29/2024 2:49 PM EST Inhaled Oxygen Concentration - - Weight 85.6 kg (188 lb 12.8 oz) 06/23/2024 3:15 PM EDT Height 157.5 cm (5' 2 ) 06/05/2024 1:22 PM EDT Body Mass Index 34.53 06/05/2024 1:22 PM EDT Plan of Treatment Health Maintenance Due Date Last Done Comments CT Colonography 1974 Colonoscopy 1975 Colorectal Cancer Screening 1975 FIT DNA/Cologuard 1974 FIT 1974 FOBT 1974 Sigmoidoscopy 1974 Family Planning (PISQ) 1989 Hepatitis B Vaccines (1 of 3 - 19+ 3-dose series) 1993 Pap Smear 1995 Cervical Cancer Screening 2004 HPV/Cotest 2004 COVID-19 Vaccine ( season) 2024 08/05/2023, 01/11/2022, 02/02/2021, Additional history exists Influenza Vaccine (#1) 2024 , 05/30/2012, 09/10/2011 Mammogram 05/20/2024 05/20/2023, 04/10, 04/04/2023 Zoster Vaccines (1 of 2) 2024 Diabetes: Foot Exam 08/05/2024 08/05/2023, 08/05/2023, 08/05/2023, Additional history exists Diabetes: Hemoglobin A1C 09/23/2024 024, 03/17/2024, 08/05/2023, Additional history exists SDOH Screening 03/09/2025 03/09/2024 Alcohol/Substance Use Screening 03/17/2025 03/17/2024 Depression Screening 03/23/2025 03/23/2024, 03/23/20 24 Eye Exam 06/19/2025 06/19/2023, 06/09, 06/19/2023, Additional history exists Diabetes: Urine Protein Screening 06/23/2025 06/23/2024, 08/05/2023 Lipid Panel 06/23/2025 06/23/2024, 07/11, 10/05/2022, Additional history exists Tobacco Screening 06/23/2025 06/23/2024 DTaP/Tdap/Td Vaccines (3 - Td or Tdap) 03/09/2031 03/09/2021, 09/10/2011 RSV Patients and Patients Aged 60 years or older (1 - 1-dose 75+ series) 2049 HIV Screening Completed 01/05/2021 Hepatitis C Screening Completed 01/05/2021 Pneumococcal Vaccine: 50+ Years Completed 08/05/2023 HIB Vaccines Aged Out No longer eligi [...] patient's age to complete this topic Meningococcal Vaccine Aged Out No carol johanna eligible based on patient's age to complete this topic RSV under 20 months Aged Out No longe r eligible based on patient's age to complete this topic Rotavirus Vaccines Aged Out No longer eligible based on patient's age to complete this topic Procedures Procedure Name Priority Date/Time Associated Diagnosis Comments ALBUMIN, RANDOM URINE W/CREATININE Routine 06/23/2024 4:20 PM EDT Type 2 diabetes mellitus without complication, without long-term current use of insulin (CMS/HCC) LIPID PANEL WITH REFLEX TO DIRECT LDL Routine 06/23/2024 4:20 PM EDT Type 2 diabetes mellitus without complication, without long-term current use of insulin (CMS/HCC) Mixed dyslipidemia POCT GLYCOSYLATED HEMOGLOBIN (HGB A1C) Routine 06/23/2024 3:46 PM EDT Type 2 diabetes mellitus without complication, without long-term current use of insulin (CMS/HCC) BI US BREAST LIMITED BILATERAL Routine 05/20/2023 3:40 PM EDT ZZZ HISTORICAL HEPATITIS C AB W/REFL TO HCV RNA, QN, PCR Routine 01/05/2021 10:58 AM EDT HIV 1/2 ANTIGEN/ANTIBODY, FOURTH GENERATION W/RFL Routine 01/05/2021 10:58 AM EDT from Last 3 Months or Most Recently Relevant to Health Maintenance Results * (ABNORMAL) Lipid Panel with Reflex to Direct LDL (06/23/2024 4:20 PM EDT) Triglycerides 144 <150 mg/dL [facility] Comment:Desirable Triglyceri de: less than 150 mg/dLBorderline High Triglyceride 150-199 mg/dLHigh Triglyceride: 200-499 mg/dLVery High Triglyceride: greater than or equal to 5OO mg/dL Cholesterol 126 <200 mg/dL [facility] Comment:Desirable Cholestero l: less than 200 mg/dLBorderline High Cholesterol: 200-239 mg/dLHigh Cholesterol: greater than 239 mg/dL LDL Cholesterol Calculated 58 <100 mg/dL [facility] Comment:Desirable LDL: less than 100 mg/dLNear Optimal/Above Optimal LDL: 110- 129 mg/dLBorderline High LDL: 130-159 mg/dLHigh LDL: 160-189 mg/dLVery High LDL: greater than or equal to 190 mg/dL HDL Cholesterol 40(L) >40 mg/dL [facility] Comment:Desirable HDL: great er than 40 mg/dL Note: This HDL assay may give artificially low results in patients with liver disease. Blood 06/23/2024 4:20 PM EDT 06/23/2024 5:33 PM EDT Clau Nguyen MD LAB BLOOD ORDERABLES Final Resul t Performing Organization Address City/[facility] Co de Phone Number [facility] [address] [place] [phone] * Albumin, Random Urine W/Creatinine (06/23/2024 4:20 PM EDT) Creatinine, Urine 46.89 mg/dL [facility] Microalbumin Urine <5.0 mg/L [facility] Microalbum Creatinine Ratio Ur TNP <30 ug/mg cr [facility] Comment:Unable to calculate albumin/creatinine ratio due to lowmicroalbumin or creatinine result. Urine 06/23/2024 4:20 PM EDT 06/23/2024 5:33 PM EDT Clau Nguyen MD LAB URINE ORDERABLES Final Resul t Performing Organization Address [facility] Co de Phone Number [facility] [address] [place] [phone] * (ABNORMAL) POCT glycosylated hemoglobin (Hgb A1c) (06/23/2024 3:46 PM EDT) Hemoglobin A1C 8.5(A) 4.0 - 6.0 % QC Media Lot # [id number] Lot# Expiration Date [id number] Blood Capillary blood specimen / Unknown 06/23/2024 3:46 PM EDT Clau Nguyen MD POINT OF CARE TEST ENTER/EDIT OR DERABLES Final Result * BI US Breast Limited Bilateral (05/20/2023 3:40 PM EDT) Anatomical Region Laterality Modality Breast Bilateral Ultrasound 05/20/2023 3:40 PM EDT Narrative 05/20/2023 4:01 PM EDT ? [facility] [address] [facility] ?[place] [address] ? Ultrasound Report ? Signed ? Patient: Dietz,Alejandra ?MR#: [id number] ? : 1975 ?Acct:[id number] ? Age/Sex: 47 / F ?ADM Date: 05/20/23 ? Loc: HO.MAMMO ? Attending Dr: Clau Nguyen MD ? Ordering Physician: Clau Nguyen MD ?? Date of Service: 05/20/23 ?? Procedure(s): US breast BI limited mamm only ?? Accession Number(s): [id number] ? cc: Clau Nguyen MD ? EXAMINATION: ?? MM DIAGNOSTIC DIGITAL BREAST TOMOSYNTHESIS, BILATERAL ?? US BREAST LIMITED, RIGHT ? MAMMOGRAPHY: ?? CLINICAL INFORMATION: ? Evaluate possible area of architectural distortion left breast ?? retroareolar region seen on baseline screening exam. ?? Evaluate 3 small oval masses, 2 in the superior lateral right breast, ?? and one in the inferior medial right breast, also seen on baseline ?? screening exam. ? COMPARISON: ?? Mammography: Baseline screening mammography 04/04/2023. ? TECHNIQUE: ?? Digital breast tomosynthesis is performed utilizing 3-D large paddle ?? right CC and MLO spot compression views, and 3-D small paddle left CC ?? and MLO spot compression views along with computer-aided detection ?? (CAD). Synthesized 2D images are generated from the tomosynthesis. ? FINDINGS: ?? There are scattered areas of fibroglandular density (ACR BI-RADS breast ?? composition Category b). ? The area of suspected architectural distortion completely dissipates on ?? spot compression views, as suspected, and is consistent with normal ?? overlapping breast tissue (summation artifact). There is no persistent ?? abnormality. ? Spot compression views of the right breast demonstrate a circumscribed ?? kidney-shaped mass in the 9:00 axis, approximately 8 cm from the ?? nipple, a second circumscribed oval mass in the 9:00 axis, 12 cm from ?? the nipple, and a third small circumscribed 4 mm oval mass in the 5:00 ?? axis right breast, 12 cm from the nipple. These will be evaluated by ?? ultrasound. ? There are no suspicious findings in the left breast. ? ULTRASOUND: ?? CLINICAL INFORMATION: ?? Evaluate 3 small oval masses, 2 in the superior lateral right breast, ?? and one in the inferior medial right breast, also seen on baseline ?? screening exam. ? COMPARISON: ?? None ? TECHNIQUE: ?? Targeted sonographic evaluation was performed using a high frequency ?? linear transducer. Attention was directed toward the 3 small oval ?? masses as detailed above. Selected archived documentation. ? FINDINGS: ? RIGHT BREAST: ?? In the right breast at the 5:00 axis, 12 cm from the nipple, there is a ?? slightly dirty cyst measuring 4 mm in diameter, benign and correlating ?? well with the mammographic abnormality. ? In the right breast at the 9:00 axis, 12 cm from the nipple, there is a ?? benign intramammary lymph node measuring 6 x 5 x 6 mm with normal ana ?? morphology. This is benign. This correlates with the mammographic focus ?? of concern. ? In the right breast at the 9:00 axis, 8 cm from the nipple, there is a ?? lymph node measuring 0.7 x 0.5 x 0.4 cm with normal multiple ?? morphology. This is benign. This correlates with the other mammographic ?? focus of concern. ? US/US breast BI limited mamm only ?? IMPRESSION: ?? Benign findings bilateral breasts. No findings suspicious for ?? malignancy. ? Recommend the patient resume annual screening mammography in one year. ? OVERALL ASSESSMENT: ?? Mammography: BI-RADS 2 - Benign Findings ?? Ultrasound: BI-RADS 2 - Benign Findings ? RECOMMENDATION: ?? 1 year F/U ? This patient's information was entered into a reminder system with a ?? target due date for their next mammogram. ? Dictated By: ?Jon Roblero MD ? Signed By: ?<Electronically signed by Jon Roblero MD in OV> ?05/20/23 1558 ? DD/ 1540 ? TD/TT: ? Outpatient Coder: ? Procedure Note Donshemarter, Image - 06/03/2023 [facility] [address] [place] [address] Ultrasound Report Signed Patient: Bossman Dietz#: [id number] : 1975Acct:[id number] Age/Sex: 47 / FADM Date: 05/20/23 Loc: HO.MAMMO Attending Dr: Clau Nguyen MD Ordering Physician: Clau Nguyen MD Date of Service: 05/20/23 Procedure(s): US breast BI limited mamm only Accession Number(s): [id number] cc: Clau Nguyen MD EXAMINATION: MM DIAGNOSTIC DIGITAL BREAST TOMOSYNTHESIS, BILATERAL US BREAST LIMITED, RIGHT MAMMOGRAPHY: CLINICAL INFORMATION: Evaluate possible area of architectural distortion left breast retroareolar region seen on baseline screening exam. Evaluate 3 small oval masses, 2 in the superior lateral right breast, and one in the inferior medial right breast, also seen on baseline screening exam. COMPARISON: Mammography: Baseline screening mammography 04/04/2023. TECHNIQUE: Digital breast tomosynthesis is performed utilizing 3-D large paddle right CC and MLO spot compression views, and 3-D small paddle left CC and MLO spot compression views along with computer-aided detection (CAD). Synthesized 2D images are generated from the tomosynthesis. FINDINGS: There are scattered areas of fibroglandular density (ACR BI-RADS breast composition Category b). The area of suspected architectural distortion completely dissipates on spot compression views, as suspected, and is consistent with normal overlapping breast tissue (summation artifact). There is no persistent abnormality. Spot compression views of the right breast demonstrate a circumscribed kidney-shaped mass in the 9:00 axis, approximately 8 cm from the nipple, a second circumscribed oval mass in the 9:00 axis, 12 cm from the nipple, and a third small circumscribed 4 mm oval mass in the 5:00 axis right breast, 12 cm from the nipple. These will be evaluated by ultrasound. There are no suspicious findings in the left breast. ULTRASOUND: CLINICAL INFORMATION: Evaluate 3 small oval masses, 2 in the superior lateral right breast, and one in the inferior medial right breast, also seen on baseline screening exam. COMPARISON: None TECHNIQUE: Targeted sonographic evaluation was performed using a high frequency linear transducer. Attention was directed toward the 3 small oval masses as detailed above. Selected archived documentation. FINDINGS: RIGHT BREAST: In the right breast at the 5:00 axis, 12 cm from the nipple, there is a slightly dirty cyst measuring 4 mm in diameter, benign and correlating well with the mammographic abnormality. In the right breast at the 9:00 axis, 12 cm from the nipple, there is a benign intramammary lymph node measuring 6 x 5 x 6 mm with normal ana morphology. This is benign. This correlates with the mammographic focus of concern. In the right breast at the 9:00 axis, 8 cm from the nipple, there is a lymph node measuring 0.7 x 0.5 x 0.4 cm with normal multiple morphology. This is benign. This correlates with the other mammographic focus of concern. US/US breast BI limited mamm only IMPRESSION: Benign findings bilateral breasts. No findings suspicious for malignancy. Recommend the patient resume annual screening mammography in one year. OVERALL ASSESSMENT: Mammography: BI-RADS 2 - Benign Findings Ultrasound: BI-RADS 2 - Benign Findings RECOMMENDATION: 1 year F/U This patient's information was entered into a reminder system with a target due date for their next mammogram. Dictated By: Jon Roblero MD Signed By: <Electronically signed by Jon Roblero MD in OV> 05/20/23 1558 DD/ 1540 TD/TT: Outpatient Coder: us Clau Nguyen MD [facility] US PROCEDURES Edited Result - Final * HEPATITIS C AB W/REFL TO HCV RNA, QN, PCR (01/05/2021 10:58 AM EDT) HEPATITIS C ANTIBODY NON-REACT MARIA LUISA NON-REACT MARIA LUISA [facility] INDEX 0.01 <1.00 [facility] Comment: ?? HCV antibody was non-reactive. There is no laboratory ?? evidence of HCV infection. ?? In most cases, no further action is required. However, if recent HCV exposure is suspected, a test for HCV RNA (test code 82859) is suggested. ?? For additional information please refer to http://[employer]/faq/ASX59w9 (This link is being provided for informational/ educational purposes only.) ?? 01/05/2021 10:5 8 AM EDT Clau Nguyen MD HISTORICAL/NON ORDERABLE LABS Fi nal Result Performing Organization Address [facility] de Phone Number [facility] [address] * HIV 1/2 ANTIGEN/ANTIBODY,FOURTH GENERATION W/RFL (01/05/2021 10:58 AM EDT) Pathologist [facility] HIV-1/2 ANTIGEN AND ANTIBODIES, 4TH GENERATION W/ REFLEX NON-REACT MARIA LUISA NON-REACT MARIA LUISA [facility] Comment: HIV-1 antigen and HIV-1/HIV-2 antibodies were not detected. There is no laboratory evidence of HIV infection. ?? PLEASE NOTE: This information has been disclosed to you from records whose confidentiality may be protected by state law. ??If your state requires such protection, then the state law prohibits you from making any further disclosure of the information without the specific written consent of the person to whom it pertains, or as otherwise permitted by law. A general authorization for the release of medical or other information is NOT sufficient for this purpose. ? For additional information please refer to http://[employer]/faq/DJV115 (This link is being provided for informational/ educational purposes only.) ? The performance of this assay has not been clinically validated in patients less than 2 years old. ?? 01/05/2021 10:5 8 AM EDT Clau Nguyen MD LAB BLOOD ORDERABLES Final Resul t Performing Organization Address [facility] Co de Phone Number [facility] [address] from Last 3 Months or Most Recently Relevant to Health Maintenance Insurance [place], [place] [facility] [phone] [place], [place] [address] Care Teams Interactive Media Project Manager Relationship Specialty Start Date End Date Clau Nguyen MD [address] [place] [address] PCP - General Family Medicine 01/05/21 Misael Gardner FNP [address] [place] [address] Nurse Practitioner Family Medicine 08/13/23
--- OUTSIDE RECORDS SUMMARY | 2024-10-23 07:51 | XMS_ITS | Encounter Summary ---
Author Organization [employer] Address [address] [place] [address] 7t [place] [address] Care Team Providers Care Ceramic Saw Tender Name Role Phone Clau Nguyen MD Primary Care Provider [phone] Misael Gardner Unavailable Unavailable Encounter Details Date Type Department Care Team (Late st Contact Info) Description 02/22/2023 Orders Only [facility] MEDICINE [address] [place], [place] [phone] Clau Nguyen MD [address] [place], [place] [phone] Type 2 diabetes mellitus without complication, without long-term current use of insulin ([facility]) (Primary Dx) Social History Tobacco Use Types [...] complication, without long-term current use of insulin ([facility])- Primary documented in this encounter Additional Health Concerns Assessment Noted Time PHQ-9 Depression Total Score: 8 02/02/20 10:56 AM EDT documented as of this encounter Care Teams Ceramic Saw Tender Relationship Specialty Start Date End Date Clau Nguyen MD [address] [place] [address] PCP - General Family Medicine 01/05/21 Misael Gardner FNP [address] [place] [address] Nurse Practitioner Family Medicine 08/13/23 documented as of this encounter
--- OUTSIDE RECORDS SUMMARY | 2024-10-23 07:51 | XMS_ITS | Encounter Summary ---
Author Organization [employer] Address [address] [facility] 7t [place] [address] Care Team Providers Care Medicine Aide Name Role Phone Clau Nguyen MD Primary Care Provider [phone] Misael Gardner Unavailable Unavailable Reason for Visit * Reason Onset Date Comments Med Change Request Appointment 03/18/2024 LVM-Re: her apt for today as [id number] @9am Encounter Details Date Type Department Care Team (Late st Contact Info) Description 03/18/2024 Refill [facility] MEDICINE 230 [place], [place] [phone] Clau Nguyen MD 230 [place], [place] [phone] Social History Tobacco Use Types Packs/Day Years [...] Answer Date Recorded Patient Health Questionnaire-9 Score 13 01/30/2024 Patient Health Questionnaire-9 Score 13 01/30/2024 Last PHQ-9: Questionnaire Data Not on file 0 01/30/2024 Housing Stability Answer Date Recorded What is [...] Answer Date Recorded Patient Health Questionnaire-2 Score 6 01/30/2024 Comments Unknown Sex and Gender Information Value [...] Assessment Noted Time PHQ-9 Depression Total Score: 13 024 1:26 PM EDT documented as of this encounter Care Teams Medicine Aide Relationship Specialty Start Date End Date Clau Nguyen MD [address] [place] [address] PCP - General Family Medicine 01/05/21 Misael Gardner FNP [address] [place] [address] Nurse Practitioner Family Medicine 08/13/23 documented as of this encounter
--- OUTSIDE RECORDS SUMMARY | 2024-10-23 07:51 | XMS_ITS | Encounter Summary ---
Author Organization [employer] Address 75 [facility] 7t [place] [address] Care Team Providers Care Tool And Gauge Inspector Name Role Phone Clau Nguyen MD Primary Care Provider [phone] Misael Gardner Unavailable Unavailable Reason for Visit * Reason Onset Date Comments Med Refill 10/05/2024 Encounter Details Date Type Department Care Team (Late st Contact Info) Description 10/05/2024 Refill [facility] MEDICINE 230 [place], [place] [phone] Clau Nguyen MD 230 [place], [place] [phone] Generalized anxiety disorder with panic attacks Social [...] documented as of this encounter Care Teams Tool And Gauge Inspector Relationship Specialty Start Date End Date Clau Nguyen MD [address] [place] [address] PCP - General Family Medicine 01/05/21 Misael Gardner FNP [address] [place] [address] Nurse Practitioner Family Medicine 08/13/23 documented as of this encounter
--- OUTSIDE RECORDS SUMMARY | 2024-10-23 07:51 | XMS_ITS | Encounter Summary ---
Author Organization [employer] Address [address] [facility] 7t [place] [address] Care Team Providers Care Permaculture Contractor Name Role Phone Clau Nguyen MD Primary Care Provider Misael Gardner Unavailable Unavailable Reason for Visit * Reason Onset Date Comments Nurse Triage 05/12/2024 Encounter Details Date Type Department Care Team (Late st Contact Info) Description 05/12/2024 Telephone [facility] MEDICINE 230 [place], [place] [phone] Clau Nguyen MD 230 [place], [place] [phone] Nurse Triage Social History Tobacco Use Types Packs/Day Years [...] Telephone Encounter - Erica Henry RN - 05/12/2024 2:01 PM EDT Triage call Pt reports leg pain. Leg pain is in both legs usually but recently the right leg has had the most pain. Pt describes constant pain on the outer aspect of right leg from buttocks to foot. Pt denies injury and varicosity. Pt reports spider veins on left leg but, nothing on right leg. Pt reports the outer aspect of leg is reddened, swollen and tender to touch as well as warmer than the other part of leg. Pt is advised to come to [facility] today for provider to check the right leg. Pt agrees with disposition . Pt is advised WIC is open till 8pm this evening. Pt agrees with disposition and home care is reviewed. Pt doesn't take anything for pain because Pt is unsure of tylenol/ motrin are ok to take with other medications Pt usually takes. Insurance is verified as active. Protocol Used: Leg Pain (Adult) Protocol-Based Disposition: See in Office or Video Visit Today or Tomorrow Video visit not offered Positive Triage Questions: * Localized pain, redness or hard lump along vein * Patient wants to be seen * All higher-acuity triage questions were negative Care Advice Discussed: * Reassurance and Education - Leg Pain * Pain Medicines * Pain Medicines - Extra Notes and Warnings * Reasons To Call Back - Moderate pain (such as limping) lasts more than 3 days - Mild pain lasts more than 7 days - Signs of infection occur (such as spreading redness, warmth, fever) - You become worse * Telephone Encounter - Eladio Patel - 05/12/2024 1:32 PM EDT Symptoms: Leg Pain - Not From Injury, Back Pain - Not From Injury Outcome: Schedule an urgent appointment (within 1 hour) or talk to a nurse or provider soon Reason: Severe pain now The caller accepted this outcome documented in this encounter Plan of Treatment Not on file documented as of this encounter Visit Diagnoses Not on filedocumented in this encounter Additional Health Concerns Assessment Noted Time PHQ-9 Depression Total Score: 8 03/23/20 24 9:09 AM EDT documented as of this encounter Care Teams Permaculture Contractor Relationship Specialty Start Date End Date Clau Nguyen MD 230 [place] [address] PCP - General Family Medicine 01/05/21 Misael Gardner FNP 230 [place] [address] Nurse Practitioner Family Medicine 08/13/23 documented as of this encounter
--- OUTSIDE RECORDS SUMMARY | 2024-10-23 07:51 | XMS_ITS | Encounter Summary ---
Author Organization [employer] Address 75 [facility] 7t [place] [address] Care Team Providers Care Jd Edwards Consultant Name Role Phone Clau Nguyen MD Primary Care Provider [phone] Misael Gardner Unavailable Unavailable Encounter Details Date Type Department Care Team (Late st Contact Info) Description 07/22/2024 Orders Only [facility] MEDICINE 230 [place], [place] [phone] Clau Nguyen MD 230 [place], [place] [phone] Social History Tobacco Use Types Packs/Day Years [...] t he electric, gas, oil or water [place] threatened to shut off services in your [...] Procedure Name Priority Date/Time Associated Diagnosis Comments CT ABDOMEN W AND WO CONTRAST Routine 07/22/2024 9:09 AM EST documented in this encounter Results * CT Abdomen w/ and w/o Contrast (07/22/2024 9:09 AM EST) Anatomical Region Laterality Modality Body, Abdomen Computed Tomogra phy 07/22/2024 9:09 AM EST Narrative 10/14/2024 8:14 AM EST ? [facility] ?[address] ?[place] [address] ? CT Scan Report ? Signed ? Patient: Dietz,Alejandra ?MR#: [id number] ? : 1975 ?Acct:[id number] ? Age/Sex: 48 / F ?ADM Date: 11/13/24 ? Loc: HO.CT ? Attending Dr: Clau Nguyen MD ? Ordering Physician: Clau Nguyen MD ?? Date of Service: 07/22/24 ?? Procedure(s): CT abdomen wo/w IV con ?? Accession Number(s): [id number] ? cc: Clau Nguyen MD ? Report Number: ?? [id number]: Total DLP = ??406.00 mGy-cm ?? EXAMINATION: ?? CT ABDOMEN WITHOUT AND WITH CONTRAST ? CLINICAL INFORMATION: ?? Disorder of the adrenal gland, left side. ? COMPARISON: ?? 2022 ? TECHNIQUE: ?? Contiguous axial thin section helical images of the abdomen were ?? performed before and after the administration of ??85 mL of Omnipaque ?? 350 intravenous contrast. The data set was reformatted in the coronal ?? and sagittal planes and reviewed on an independent workstation. ? This CT examination was performed using dose optimization techniques as ?? appropriate, variously including the following: ?? *Automated exposure control ?? *Adjustment of mA and/or kV according to patient size (this includes ?? techniques or standardized protocols for targeted exams where dose is ?? matched to indication/reason for exam; i.e. extremities or head) ?? *Use of iterative reconstruction technique ? DLP: 406 mGy centimeter. ? FINDINGS: ? Submitted for interpretation on October 14, 2024. ? Left adrenal gland: ? There is a 19 mm low-density nodule measures -2 Hounsfield units in the ?? noncontrast phase. ? Right adrenal gland: ? No nodular lesions. ? Atelectasis lung bases. ?? Liver measures 17 cm with decreased enhancement pattern. No focal mass. ?? Portal veins, hepatic veins and intrahepatic portion of the IVC are ?? patent. No intrahepatic biliary ductal dilatation. ?? Status post cholecystectomy. Common bile duct measures 7 mm. ? No focal pancreatic mass no peripancreatic fluid collections or main ?? pancreatic ductal dilatation. ? Spleen measures 9 cm. No focal mass. ? No hydronephrosis or nephrolithiasis in either kidney. No enhancing ?? renal mass. Subcentimeter cyst, left kidney. ? Nonspecific mildly prominent mesenteric lymph nodes. ? Gas and fluid-filled prominent jejunal loops, nonspecific. Abundant ?? stool in the visualized large intestine. Few scattered diverticula in ?? the sigmoid colon. ?? The appendix is not fully included in the exam. ?? No ascites. ?? No pneumoperitoneum. ?? No peripheral enhancing fluid collections in the peritoneal cavity. ?? No aneurysm or dissection, abdominal aorta. ? CT/CT abdomen wo/w IV con ?? IMPRESSION: ? 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 Stable. ? Hepatomegaly, mild and likely steatosis. ? Fleischner guidelines were followed. ? Electronically signed by: ??Luis Cobb MD ??10/14/2024 08:10 AM ?? EST RP ? Dictated By: ?Luis Fernando MD ? Signed By: ?<Electronically signed by Luis Cook MD in OV> ? 10/14/24 0810 ? DD/ 0909 ? TD/TT: 07/22/2430 ? Pilot Control Operator Helper: ? Procedure Note Nicole, Image - 10/14/[address] [place] [address] [address] Scan Report Signed Patient: Bossman Dietz#: [id number] : 1975Acct:[id number] Age/Sex: 48 / FADM Date: 07/22/24 Loc: HO.CT Attending Dr: Clau Nguyen MD Ordering Physician: Clau Nguyen MD Date of Service: 07/22/24 Procedure(s): CT abdomen wo/w IV con Accession Number(s): [id number] cc: Clau Nguyen MD Report Number: [id number]: Total DLP = 406.00 mGy-cm EXAMINATION: CT ABDOMEN WITHOUT AND WITH CONTRAST CLINICAL INFORMATION: Disorder of the adrenal gland, left side. COMPARISON: 2022 TECHNIQUE: Contiguous axial thin section helical images of the abdomen were performed before and after the administration of 85 mL of Omnipaque 350 intravenous contrast. The data set was reformatted in the coronal and sagittal planes and reviewed on an independent workstation. This CT examination was performed using dose optimization techniques as appropriate, variously including the following: *Automated exposure control *Adjustment of mA and/or kV according to patient size (this includes techniques or standardized protocols for targeted exams where dose is matched to indication/reason for exam; i.e. extremities or head) *Use of iterative reconstruction technique DLP: 406 mGy centimeter. FINDINGS: Submitted for interpretation on October 14, 2024. Left adrenal gland: There is a 19 mm low-density nodule measures -2 Hounsfield units in the noncontrast phase. Right adrenal gland: No nodular lesions. Atelectasis lung bases. Liver measures 17 cm with decreased enhancement pattern. No focal mass. Portal veins, hepatic veins and intrahepatic portion of the IVC are patent. No intrahepatic biliary ductal dilatation. Status post cholecystectomy. Common bile duct measures 7 mm. No focal pancreatic mass no peripancreatic fluid collections or main pancreatic ductal dilatation. Spleen measures 9 cm. No focal mass. No hydronephrosis or nephrolithiasis in either kidney. No enhancing renal mass. Subcentimeter cyst, left kidney. Nonspecific mildly prominent mesenteric lymph nodes. Gas and fluid-filled prominent jejunal loops, nonspecific. Abundant stool in the visualized large intestine. Few scattered diverticula in the sigmoid colon. The appendix is not fully included in the exam. No ascites. No pneumoperitoneum. No peripheral enhancing fluid collections in the peritoneal cavity. No aneurysm or dissection, abdominal aorta. 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 Stable. Hepatomegaly, mild and likely steatosis. Fleischner guidelines were followed. Electronically signed by: Luis Cobb MD 10/14/2024 08:10 AM [facility] Dictated By: Luis Fernando MD Signed By: <Electronically signed by Luis Cook MDin OV> 10/14/24 0810 DD/ 0909 TD/TT: 07/22/24 0930 Pilot Control Operator Helper: Clau Nguyen MD [facility] CT PROCEDURES Edited Result - Final documented in this encounter Visit Diagnoses Not on filedocumented in this encounter Additional Health Concerns Assessment Noted Time PHQ-9 Depression Total Score: 8 03/23/20 24 9:09 AM EDT documented as of this encounter Care Teams Jd Edwards Consultant Relationship Specialty Start Date End Date Clau Nguyen MD 230 [place] [address] PCP - General Family Medicine 01/05/21 Misael Gardner FNP 230 [place] [address] Nurse Practitioner Family Medicine 08/13/23 documented as of this encounter
--- NOTE | 2024-10-23 08:09 | A.OFFVIS_ITS ---
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 Patient reports right shoulder pain ongoing for about one month now. Patient reports that she did not have any injury. Her pain has improved, but it seems to come in episodes. She currently has pain with certain movements. She has some mild numbness and tingling in both of her hands. 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 She denies injury. She states she had severe shoulder pain that limited her ability to perform daily activities and limited her range of motion however this has significantly improved. 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 She is diabetic however her sugars are well controlled and she is not on insulin. [facility] Medical History delivery delivered Pancreatitis Surgical History H/O: hysterectomy History of cholecystectomy Social History Alcohol intake: never Review of Systems Const All systems reviewed & are unremarkable except as noted in HPI and below Physical Exam Const General: cooperative and no acute distress Orientation/consciousness: patient oriented x3 Resp Effort & Inspection: normal respiratory effort and able to speak in complete sentences Cardio Peripheral pulses: Peripheral pulses 2+ throughout Neuro General: patient oriented x3 Extrem Other: Left shoulder normal to inspection. She has mild tenderness over the proximal biceps tendon. She has full range of motion in all planes. She has positive Girdler's. Negative Power negative cross-body abduction 5/5 rotator cuff strength. Neurovascularly intact. Results Reviewed Results Reviewed: X-rays of the left shoulder obtained in the office today are negative for any acute or chronic abnormalities. Assessment & Plan Assessment & Plan (1) Bicipital tendinitis, left shoulder: Code(s): M75.22 - Bicipital tendinitis, left shoulder Category: Medical Plan: We discussed options today which include physical therapy which was ordered today. I also recommend ibuprofen 800 mg 3 times a day for acute flare-ups which she should take for 2 weeks. If symptoms persist or worsen over the next 6-8 weeks she can contact our office for steroid injection otherwise follow-up as needed. Orders: Orders XR shoulder LT min 2V Today M25.512 - Pain in left shoulder PT Evaluation and Treatment Today M75.22 - Bicipital tendinitis, left shoulder Coding Level of Care Code New Pt Level 3 (26610) Complex EM visit Add On G2211 Diagnoses Bicipital tendinitis, left shoulder M75.22
== END 2024-10-23 08:45 | disposition home or self-care (01) ==
PROVIDERS: PCP Family Medicine; Visit Provider Physician Assistant
DX: M75.22 Bicipital tendinitis, left shoulder (principal)
CPT/HCPCS: 99203

== ENCOUNTER → 2024-10-23 07:51 | Outpatient (BNV) | payer OTHER, SELFPAY | PROVIDERS: Visit Provider Radiology Diagnostic Radiology | DX: M25.512 Pain in left shoulder (principal) | CPT/HCPCS: 73030 ==

== ENCOUNTER 2024-10-23 08:50 | Outpatient (REF) | payer OTHER, SELFPAY ==
--- NOTE | ~2024-10-23 | XR_ITS ---
EXAMINATION: XR SHOULDER 2 OR MORE VIEWS LEFT HISTORY: M25.512 - Pain in left shoulder COMPARISON: There are no prior studies available for comparison. FINDINGS: Three views of the left shoulder are submitted. Osseous mineralization is normal. There is no fracture or dislocation. The joint spaces are preserved. The soft tissues are unremarkable. XR/XR shoulder LT min 2V IMPRESSION: Unremarkable examination of the left shoulder. Electronically signed by: J Luis Perera MD 10/23/2024 09:22 AM [facility]
--- OUTSIDE RECORDS SUMMARY | 2024-10-26 08:53 | XMS_ITS | Encounter Summary ---
Author Organization [employer] Address [address] [facility] 7t [place] [address] Care Team Providers Care Museum Service Scheduler Name Role Phone Clau Nguyen MD Primary Care Provider [phone] Misael Gardner Unavailable Unavailable Reason for Visit * Reason Onset Date Comments Med Refill 10/14/2023 Encounter Details Date Type Department Care Team (Late st Contact Info) Description 10/14/2023 Refill [facility] MEDICINE [address] [place] [address] Misael Gardner FNP Generalized anxiety disorder with [...] documented as of this encounter Care Teams Museum Service Scheduler Relationship Specialty Start Date End Date Clau Nguyen MD [address] [place] [address] PCP - General Family Medicine 01/05/21 Misael Gardner FNP [address] [place] [address] Nurse Practitioner Family Medicine 08/13/23 documented as of this encounter
--- OUTSIDE RECORDS SUMMARY | 2024-10-26 08:53 | XMS_ITS | Encounter Summary ---
Author Organization [employer] Address [address] [facility] 7t [place] [address] Care Team Providers Care Cleaning Maid Name Role Phone Clau Nguyen MD Primary Care Provider [phone] Misael Gardner Unavailable Unavailable Reason for Visit * Reason Onset Date Comments Med Refill 06/27/2023 Encounter Details Date Type Department Care Team (Late st Contact Info) Description 06/27/2023 Refill [facility] MEDICINE [address] [place] [address] Misael Gardner FNP Generalized anxiety disorder with [...] documented as of this encounter Care Teams Cleaning Maid Relationship Specialty Start Date End Date Clau Nguyen MD [address] [place] [address] PCP - General Family Medicine 01/05/21 Misael Gardner FNP [address] [place] [address] Nurse Practitioner Family Medicine 08/13/23 documented as of this encounter
--- OUTSIDE RECORDS SUMMARY | 2024-10-26 08:53 | XMS_ITS | Encounter Summary ---
Author Organization [employer] Address [address] [facility] 7t [place] [address] Care Team Providers Care Public Affairs Director Name Role Phone Clau Nguyen MD Primary Care Provider Misael Gardner Unavailable Unavailable Reason for Visit * Reason Onset Date Comments Med Change Request Appointment 03/18/2024 LVM-Re: her apt for today as [id number] @9am Encounter Details Date Type Department Care Team (Late st Contact Info) Description 03/18/2024 Refill [facility] MEDICINE [address] [place], [place] [phone] Clau Nguyen MD 230 [place], [place] [phone] Social History Tobacco Use Types Packs/Day Years [...] documented as of this encounter Care Teams Public Affairs Director Relationship Specialty Start Date End Date Clau Nguyen MD [address] [place] [address] PCP - General Family Medicine 01/05/21 Misael Gardner FNP [address] [place] [address] Nurse Practitioner Family Medicine 08/13/23 documented as of this encounter
--- OUTSIDE RECORDS SUMMARY | 2024-10-26 08:53 | XMS_ITS | Encounter Summary ---
Author Organization [employer] Address [address] [facility] 7t [place] [address] Care Team Providers Care Chief Crew Scheduler Name Role Phone Clau Nguyen MD Primary Care Provider [phone] Misael Gardner Unavailable Unavailable Reason for Visit * Reason Onset Date Comments Med Refill 09/20/2023 Encounter Details Date Type Department Care Team (Late st Contact Info) Description 09/20/2023 Refill [facility] MEDICINE [address] [place] [address] Misael Gardner FNP Generalized anxiety disorder with [...] documented as of this encounter Care Teams Chief Crew Scheduler Relationship Specialty Start Date End Date Clau Nguyen MD [address] [place] [address] PCP - General Family Medicine 01/05/21 Misael Gardner FNP [address] [place] [address] Nurse Practitioner Family Medicine 08/13/23 documented as of this encounter
--- OUTSIDE RECORDS SUMMARY | 2024-10-26 08:53 | XMS_ITS | Encounter Summary ---
Author Organization [employer] Address [address] [place] [address] 7t [place] [address] Care Team Providers Care Slice Plug Cutter Operator Helper Name Role Phone Clau Nguyen MD Primary Care Provider [phone] Misael Gardner Unavailable Unavailable Reason for Visit * Reason Comments Med Refill Encounter Details Date Type Department Care Team (Late st Contact Info) Description 10/05/2024 Refill [facility] MEDICINE 230 [place], [place] [phone] Clau Nguyen MD 230 [place], [place] [phone] Generalized anxiety disorder with panic attacks Social [...] documented as of this encounter Care Teams Slice Plug Cutter Operator Helper Relationship Specialty Start Date End Date Clau Nguyen MD [address] [place] [address] PCP - General Family Medicine 01/05/21 Misael Gardner FNP [address] [place] [address] Nurse Practitioner Family Medicine 08/13/23 documented as of this encounter
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
--- OUTSIDE RECORDS SUMMARY | 2024-10-26 08:53 | XMS_ITS | Encounter Summary ---
Author Organization [employer] Address [address] [facility] 7t [place] [address] Care Team Providers Care Orthopedic Technician Name Role Phone Clau Nguyen MD Primary Care Provider [phone] Misael Gardner Unavailable Unavailable Encounter Details Date Type Department Care Team (Late st Contact Info) Description 07/22/2024 Orders Only [facility] MEDICINE [address] [place], [place] [phone] Clau Nguyen MD [address] [place], [place] [phone] Social History Tobacco Use Types Packs/Day Years [...] t he electric, gas, oil or water [employer] threatened to shut off services in your [...] EST Narrative 10/14/2024 8:14 AM EST ? [facility] ?[address] ?[place] [address] ? CT Scan Report ? Signed ? Patient: Dietz,Alejandra ?MR#: [id number] ? : 1975 ?Acct:[id number] ? Age/Sex: 48 / F ?ADM Date: 11/13/24 ? Loc: HO.CT ? Attending Dr: Clau Nguyen MD ? Ordering Physician: Clau Nguyen MD ?? Date of Service: 07/22/24 ?? Procedure(s): CT abdomen wo/w IV con ?? Accession Number(s): [id number] ? cc: Clau Nguyen MD ? Report Number: ?? [id number]: Total DLP = ??406.00 mGy-cm ?? EXAMINATION: [...] ? DD/ 0909 ? TD/TT: 07/22/2430 ? Veneer Manufacturer: ? Procedure Note Nicole, Image - 10/14/[address] [place] [address] [address] Scan Report Signed Patient: Bossman Dietz#: [id number] : 1975Acct:[id number] Age/Sex: 48 / FADM Date: 07/22/24 Loc: HO.CT Attending Dr: Clau Nguyen MD Ordering Physician: Clau Nguyen MD Date of Service: 07/22/24 Procedure(s): CT abdomen wo/w IV con Accession Number(s): [id number] cc: Clau Nguyen MD Report Number: [id number]: Total DLP = 406.00 mGy-cm EXAMINATION: CT [...] by: Luis Cobb MD 10/14/2024 08:10 AM [facility] Dictated By: Luis Fernando MD Signed By: <Electronically signed by Luis Cook MDin OV> 10/14/24 0810 DD/ 0909 TD/TT: 07/22/24 0930 Veneer Manufacturer: Clau Nguyen MD [facility] CT PROCEDURES Edited Result - Final documented in this encounter Visit Diagnoses Not on filedocumented in this encounter Additional Health Concerns Assessment Noted Time PHQ-9 Depression Total Score: 8 03/23/20 24 9:09 AM EDT documented as of this encounter Care Teams Orthopedic Technician Relationship Specialty Start Date End Date Clau Nguyen MD [address] [place] [address] PCP - General Family Medicine 01/05/21 Misael Gardner FNP [address] [place] [address] Nurse Practitioner Family Medicine 08/13/23 documented as of this encounter
--- OUTSIDE RECORDS SUMMARY | 2024-10-26 08:53 | XMS_ITS | Encounter Summary ---
Author Organization [employer] Address [address] [place] [address] 7t [place] [address] Care Team Providers Care Bilingual Manager Name Role Phone Clau Nguyen MD Primary Care Provider [phone] Misael Gardner Unavailable Unavailable Reason for Referral * Consultation (STAT) - Closed Specialty Diagnoses / Procedures Referred By Tony mendez Referred To Contact Orthopaedic Surgery Diagnoses Calcific tendonitis of left shoulder Acute pain of left shoulder Dilma Valentine MD [address] [place] [address] Phone: tel: fax: [facility] [address] [place] [address] Phone: tel: Referral ID Status Reason Start Date Expiration Date V isits Requested Visits Authorized [id number] Closed Specialty Services Required 09/29/2024 09/29/2025 1 1 Reason for Visit * Reason Comments Shoulder Pain Fever Vomiting Diarrhea Encounter Details Date Type Department Care Team (Latest Contact Info) Description 09/29/2024 2:20 PM EST Office Visit [facility] [address] [place] [address] Dilma Valentine MD [address] [place] [phone] Calcific tendonitis of left shoulder (Primary Dx); [...] or split. 180 tablet 3 sodium chloride ([place] Nasal [place]) 0.65 % nasal spray Administer 1 spray [...] documented as of this encounter Care Teams Bilingual Manager Relationship Specialty Start Date End Date Clau Nguyen MD [address] [place] [address] PCP - General Family Medicine 01/05/21 Misael Gardner FNP [address] [place] [address] Nurse Practitioner Family Medicine 08/13/23 documented as of this encounter
--- OUTSIDE RECORDS SUMMARY | 2024-10-26 08:53 | XMS_ITS | Encounter Summary ---
Author Organization [employer] Address [address] [facility] 7t [place] [address] Care Team Providers Care Health Center Manager Name Role Phone Clau Nguyen MD Primary Care Provider [phone] Misael Gardner Unavailable Unavailable Reason for Visit * Reason Onset Date Comments Nurse Triage 05/12/2024 Encounter Details Date Type Department Care Team (Late st Contact Info) Description 05/12/2024 Telephone [facility] MEDICINE [address] [place], [place] [phone] Clau Nguyen MD [address] [place], [place] [phone] Nurse Triage Social History Tobacco Use Types [...] leg. Pt is advised to come to [facility] today for provider to check the [...] documented as of this encounter Care Teams Health Center Manager Relationship Specialty Start Date End Date Clau Nguyen MD [address] [place] [address] PCP - General Family Medicine 01/05/21 Misael Gardner FNP [address] [place] [address] Nurse Practitioner Family Medicine 08/13/23 documented as of this encounter
--- OUTSIDE RECORDS SUMMARY | 2024-10-26 08:53 | XMS_ITS | Encounter Summary ---
Author Organization [employer] Address [address] [place] [address] 7[address] [place] [address] Care Team Providers Care Grip Assembler Name Role Phone Clau Nguyen MD Primary Care Provider [phone] Misael Gardner Unavailable Unavailable Reason for Visit * Reason Onset Date Comments Med Refill 10/14/2023 Encounter Details Date Type Department Care Team (Late st Contact Info) Description 10/14/2023 Refill [facility] MED[facility] [address] [place], [place] [phone] Clau Nguyen MD [address] [place], [place] [phone] Type 2 diabetes mellitus without complication, without long-term current use of insulin ([facility]); Dyslipidemia Social History Tobacco Use Types Packs/Day [...] 12:58 PM EST Call to Kaylyn, ext [phone] regarding insurance questions for Pt.. Kaylyn advised to have Pt call Kaylyn to check on insurance status . Call to Pt with this information and Pt is given number to call [phone]. Pt did write this down and will [...] financial help that I can get from [facility]? documented in this encounter Plan of Treatment Not on file documented as of this encounter Visit Diagnoses Diagnosis Type 2 diabetes mellitus without complication, without long-term current use of insulin ([facility]) Dyslipidemia Other and unspecified hyperlipidemia documented in this encounter Additional Health Concerns Assessment Noted Time PHQ-9 Depression Total Score: 6 08/26/20 23 11:26 AM EST documented as of this encounter Care Teams Grip Assembler Relationship Specialty Start Date End Date Clau Nguyen MD [address] [place] [address] PCP - General Family Medicine 01/05/21 Misael Gardner FNP [address] [place] [address] Nurse Practitioner Family Medicine 08/13/23 documented as of this encounter
--- OUTSIDE RECORDS SUMMARY | 2024-10-26 08:53 | XMS_ITS | Encounter Summary ---
Author Organization [employer] Address [address] [place] [address] 7t [place] [address] Care Team Providers Care Glass Cutting Machine Operator Name Role Phone Clau Nguyen MD Primary Care Provider [phone] Misael Gardner Unavailable Unavailable Reason for Visit * Reason Onset Date Comments Med Refill 10/05/2024 Encounter Details Date Type Department Care Team (Late st Contact Info) Description 10/05/2024 Refill [facility] MEDICINE [address] [place], [place] [phone] Clau Nguyen MD [address] [place], [place] [phone] Generalized anxiety disorder with panic attacks Social [...] documented as of this encounter Care Teams Glass Cutting Machine Operator Relationship Specialty Start Date End Date Clau Nguyen MD [address] [place] [address] PCP - General Family Medicine 01/05/21 Misael Gardner FNP [address] [place] [address] Nurse Practitioner Family Medicine 08/13/23 documented as of this encounter
--- OUTSIDE RECORDS SUMMARY | 2024-10-26 08:53 | XMS_ITS | Encounter Summary ---
Author Organization [employer] Address [address] [facility] 7t [place] [address] Care Team Providers Care Casting Wheel Operator Helper Name Role Phone Clau Nguyen MD Primary Care Provider [phone] Misael Gardner Unavailable Unavailable Reason for Visit * Reason Onset Date Comments Med Refill 10/12/2024 Encounter Details Date Type Department Care Team (Late st Contact Info) Description 10/12/2024 Refill [facility] MED & PEDS [address] [place], [place] [phone] Clau Nguyen MD [address] [place], [place] [phone] Social History Tobacco Use Types Packs/Day Years [...] documented as of this encounter Care Teams Casting Wheel Operator Helper Relationship Specialty Start Date End Date Clau Nguyen MD [address] [place] [address] PCP - General Family Medicine 01/05/21 Misael Gardner FNP [address] [place] [address] Nurse Practitioner Family Medicine 08/13/23 documented as of this encounter
--- OUTSIDE RECORDS SUMMARY | 2024-10-26 08:53 | XMS_ITS | Encounter Summary ---
Author Organization [employer] Address [address] [facility] 7t [place] [address] Care Team Providers Care Figure Refinisher And Repairer Name Role Phone Clau Nguyen MD Primary Care Provider [phone] Misael Gardner Unavailable Unavailable Reason for Visit * Reason Onset Date Comments Med Refill 10/07/2024 Encounter Details Date Type Department Care Team (Late st Contact Info) Description 10/07/2024 Refill [facility] MEDICINE [address] [place], [place] [phone] Clau Nguyen MD [address] [place], [place] [phone] Mood disorder (CMS/HCC); Generalized anxiety disorder with [...] documented as of this encounter Care Teams Figure Refinisher And Repairer Relationship Specialty Start Date End Date Clau Nguyen MD [address] [place] [address] PCP - General Family Medicine 01/05/21 Misael Gardner FNP [address] [place] [address] Nurse Practitioner Family Medicine 08/13/23 documented as of this encounter
--- OUTSIDE RECORDS SUMMARY | 2024-10-26 08:54 | XMS_ITS | Encounter Summary ---
Author Organization [employer] Address [address] [place] [address] 7t [place] [address] Care Team Providers Care Hand Tapper Name Role Phone Clau Nguyen MD Primary Care Provider [phone] Misael Gardner Unavailable Unavailable Reason for Visit * Reason Onset Date Comments Med Refill 02/25/2023 Encounter Details Date Type Department Care Team (Late st Contact Info) Description 02/25/2023 Refill [facility] MEDICINE [address] [place], [place] [phone] Clau Nguyen MD [address] [place], [place] [phone] Type 2 diabetes mellitus without complication, without long-term current use of insulin ([facility]); Dyslipidemia Social History Tobacco Use Types Packs/Day [...] complication, without long-term current use of insulin ([facility]) Dyslipidemia Other and unspecified hyperlipidemia documented in this encounter Additional Health Concerns Assessment Noted Time PHQ-9 Depression Total Score: 8 02/02/20 23 10:56 AM EDT documented as of this encounter Care Teams Hand Tapper Relationship Specialty Start Date End Date Clau Nguyen MD [address] [place] [address] PCP - General Family Medicine 01/05/21 Misael Gardner FNP [address] [place] [address] Nurse Practitioner Family Medicine 08/13/23 documented as of this encounter
--- OUTSIDE RECORDS SUMMARY | 2024-10-26 08:54 | XMS_ITS | Encounter Summary ---
Author Organization [employer] Address [address] [facility] 7t [place] [address] Care Team Providers Care Refueling Ramp Supervisor Name Role Phone Clau Nguyen MD Primary Care Provider [phone] Misael Gardner Unavailable Unavailable Reason for Visit * Reason Onset Date Comments Med Refill 06/27/2023 Encounter Details Date Type Department Care Team ([facility] st Contact Info) Description 06/27/2023 Refill [facility] MED & PEDS [address] [place] [address] Misael Gardner FNP Social History Tobacco Use [...] documented as of this encounter Care Teams Refueling Ramp Supervisor Relationship Specialty Start Date End Date Clau Nguyen MD [address] [place] [address] PCP - General Family Medicine 01/05/21 Misael Gardner FNP [address] [place] [address] Nurse Practitioner Family Medicine 08/13/23 documented as of this encounter
--- OUTSIDE RECORDS SUMMARY | 2024-10-26 08:54 | XMS_ITS | Encounter Summary ---
Author Organization [employer] Address [address] [facility] [address] [place] [address] Care Team Providers Care Program Specialist Name Role Phone Clau Nguyen MD Primary Care Provider [phone] Misael Gardner Unavailable Unavailable Encounter Details Date Type Department Care Team (Late st Contact Info) Description 08/18/2023 Orders Only [facility] MEDICINE [address] [place], [place] [phone] Clau Nguyen MD [address] [place], [place] [phone] Social History Tobacco Use Types Packs/Day Years [...] documented as of this encounter Care Teams Program Specialist Relationship Specialty Start Date End Date Clau Nguyen MD [address] [place] [address] PCP - General Family Medicine 01/05/21 Misael Gardner FNP [address] [place] [address] Nurse Practitioner Family Medicine 08/13/23 documented as of this encounter
--- OUTSIDE RECORDS SUMMARY | 2024-10-26 08:54 | XMS_ITS | Encounter Summary ---
Author Organization [employer] Address [address] [place] [address] [address]t [place] [address] Care Team Providers Care Cross Country Truck Driver Name Role Phone Clau Nguyen MD Primary Care Provider [phone] Misael Gardner Unavailable Unavailable Encounter Details Date Type Department Care Team (Late st Contact Info) Description 02/22/2023 Orders Only [facility] MEDICINE [address] [place], [place] [phone] Clau Nguyen MD [address] [place], [place] [phone] Type 2 diabetes mellitus without complication, without long-term current use of insulin ([facility]) (Primary Dx) Social History Tobacco Use Types [...] complication, without long-term current use of insulin ([facility])- Primary documented in this encounter Additional Health Concerns Assessment Noted Time PHQ-9 Depression Total Score: 8 02/02/20 10:56 AM EDT documented as of this encounter Care Teams Cross Country Truck Driver Relationship Specialty Start Date End Date Clau Nguyen MD [address] [place] [address] PCP - General Family Medicine 01/05/21 Misael Gardner FNP [address] [place] [address] Nurse Practitioner Family Medicine 08/13/23 documented as of this encounter
--- OUTSIDE RECORDS SUMMARY | 2024-10-26 08:54 | XMS_ITS | Encounter Summary ---
Author Organization [employer] Address [address] [facility] 7t [place] [address] Care Team Providers Care Firearms Instructor Name Role Phone Clau Nguyen MD Primary Care Provider [phone] Misael Gardner Unavailable Unavailable Encounter Details Date Type Department Care Team (Late st Contact Info) Description 08/05/2023 Orders Only [facility] MEDICINE [address] [place], [place] [phone] Clau Nguyen MD [address] [place], [place] [phone] Abnormal TSH (Primary Dx) Social History Tobacco [...] Antibodies <1 < or = 1 IU/mL [facility] Comment:THIS TEST WAS PERFOR MED AT:[employer] [address] [id number] TRAIVS MD 08/06/2023 1:13 PM EST 08/06/2023 3:49 PM EST us Clau Nguyen MD LAB BLOOD ORDERABLES Final Resul t [facility] [address] [place] [phone] * TSH (08/06/2023 1:13 PM EST) Thyroid Stimulating Hormone 1.69 0.32 - 4.0 uIU/mL [facility] Comment:TSH 3rd Generation ( [facility]) Blood Venous blood specimen / Unknown 08/06/2023 1:13 PM EST 08/06/2023 3:49 PM EST us Clau Nguyen MD LAB BLOOD ORDERABLES Final Resul t Performing Organization Address City/[facility]/ZIP Co de Phone Number [facility] [address] [place] [phone] [phone] * T4, Free (08/06/2023 1:13 PM EST) Free T4 (Free Thyroxine) 0.94 0.71 - 1.85 ng/dL [facility] Blood Venous blood specimen / Unknown 08/06/2023 1:13 PM EST 08/06/2023 3:49 PM EST us Clau Nguyen MD LAB BLOOD ORDERABLES Final Resul t Performing Organization Address City/[facility] Co de Phone Number [facility] [address] [place] [phone] documented in this encounter Visit Diagnoses Diagnosis Abnormal TSH- Primary documented in this encounter Additional Health Concerns Assessment Noted Time PHQ-9 Depression Total Score: 9 07/18/20 23 1:43 PM EST documented as of this encounter Care Teams Firearms Instructor Relationship Specialty Start Date End Date Clau Nguyen MD [address] [place] [address] PCP - General Family Medicine 01/05/21 Misael Gardner FNP [address] [place] [address] Nurse Practitioner Family Medicine 08/13/23 documented as of this encounter
--- OUTSIDE RECORDS SUMMARY | 2024-10-26 08:54 | XMS_ITS | Clinical Summary ---
[facility] Address [address] [place] [address] Care Team Providers Care Autism Tutor Name Role Phone Tomy Ortez MD Primary Care Provider Unavail able Surgical History Surgery Date Site/Laterality Comments HYSTERECTOMY PROCEDURE: HISTORICAL HYSTERECTOMY; COMMENT: without BSO, for fibroid OTHER SURGICAL HISTORY PROCEDURE: HISTORICAL UNSPECIFIED SURGERY; COMMENT: nasal surgery for chronic sinusitis CHOLECYSTECTOMY PROCEDURE: [place] CHOLECYSTECTOMY TONSILLECTOMY PROCEDURE: HISTORICAL TONSILLECTOMY SECTION 1994 [...] or Tdap) 09/10/2021 09/10/2011 COVID-19 Vaccine (1 - 2023-2 5 season) 2024 Influenza Vaccine (#1) 2024 2, 09/10/2011 Pneumococcal Vaccine: 50+ Years (1 of 1 - PCV) 2024 Zoster Vaccines (1 of 2) 2024 HIB [...] patient's age to complete this topic Meningococcal B Vacine Aged Out No lo nger eligible based on patient's age to complete [...] age to complete this topic Care Teams Autism Tutor Relationship Specialty Start Date End Date Tomy Ortez MD PCP - General Internal Medicine 10/11/15
--- OUTSIDE RECORDS SUMMARY | 2024-10-26 08:54 | XMS_ITS | Encounter Summary ---
Author Organization [employer] Address [address] [facility] [address]t [place] [address] Care Team Providers Care Folding Machine Tender Name Role Phone Clau Nguyen MD Primary Care Provider [phone] Misael Gardner Unavailable Unavailable Reason for Visit * Reason Onset Date Comments Med Refill 07/15/2023 Encounter Details Date Type Department Care Team ([facility] st Contact Info) Description 07/15/2023 Refill [facility] MED & PEDS [address] [place] [address] Misael Gardner FNP Social History Tobacco Use [...] documented as of this encounter Care Teams Folding Machine Tender Relationship Specialty Start Date End Date Clau Nguyen MD [address] [place] [address] PCP - General Family Medicine 01/05/21 Misael Gardner FNP [address] [place] [address] Nurse Practitioner Family Medicine 08/13/23 documented as of this encounter
--- OUTSIDE RECORDS SUMMARY | 2024-10-26 08:54 | XMS_ITS | Encounter Summary ---
Author Organization [facility] Address [address] [place] [address] [address] [place] [address] Care Team Providers Care Global Implementation Manager Name Role Phone Clau Nguyen MD Primary Care Provider [phone] Misael Gardner Unavailable Unavailable Encounter Details Date Type Department Care Team (Late st Contact Info) Description 01/25/2023 Orders Only [facility] MEDICINE [address] [place] [phone] Clau Nguyen MD [address] [place], [place] [phone] Anxiety (Primary Dx); Panic attack Social History [...] agoraphobia documented in this encounter Care Teams Global Implementation Manager Relationship Specialty Start Date End Date Clau Nguyen MD [address] [place] [phone] PCP - General Family Medicine 01/05/21 Misael Gardner FNP [address] [place] [address] Nurse Practitioner Family Medicine 08/13/23 documented as of this encounter
== END 2024-10-23 08:51 | disposition home or self-care (01) ==
LOC: HO.HOSX 08:50
PROVIDERS: Visit Provider Physician Assistant
DX: M75.22 Bicipital tendinitis, left shoulder (principal)
CPT/HCPCS: 73030

== ENCOUNTER 2025-02-18 12:20 | Outpatient (REF) | payer OTHER, SELFPAY ==
[2025-02-18 13:14] LABS: Appearance Urine Clear; Color Urine Yellow; Glucose Urine UA Negative (Negative); Leukocyte Esterase Urine Small (1+) (Negative); Nitrite Urine Negative (Negative); Specific Gravity - Urine <= 1.005 (1.005-1.025); UMIC TRIGGER UACC YES; Urine Blood Negative (Negative); Urine Ketones Negative (Negative); Urine Protein Negative (Neg-Trace)
[2025-02-18 13:25] LABS: Bacteria Urine Trace (None Seen); Hyaline Casts Urine 0-2 /LPF (0-2); RBC Urine 0-2 /HPF (0-2); Squamous Epithelial Cell Urine 0-2 /HPF (0-2); UACC Culture Trigger YES; WBC Urine 0-5 /HPF (0-5)
[2025-02-18 13:33] LABS: MANUAL DIFF FLAG NO
[2025-02-18 13:38] LABS: Basophils Percent Auto 0.6 % (0-2); Eosinophils Absolute Auto 0.1 X10*3/uL (0.0-0.4); Eosinophils Percent Auto 2.1 % (0-4); Hematocrit 38.3 % (37.0-47.0); Hemoglobin 12.7 g/dl (12.0-16.0); Imm Gran Abs Auto 0.02 X10*3/uL (0.00-0.03); Imm Gran Pct Auto 0.3 % (0.0-0.4); Lymphocytes Absolute Auto 2.4 X10*3/uL (1.2-4.9); Lymphocytes Percent Auto 34.7 % (20-40); Mean Corpuscular HGB Conc 33.2 g/dl (31.0-35.0); Mean Corpuscular Hemoglobin 28.3 pg (27.0-33.0); Mean Corpuscular Volume 85.5 fL (80.0-98.0); Mean Platelet Volume 11.9 fL (9.4-12.3); Monocytes Absolute Auto 0.3 X10*3/uL (0.1-1.2); Neutrophils Percent Auto 58.3 % (45-73); Platelet Count 310 X10*3/uL (160-400); Red Blood Count 4.48 X10*6/uL (4.20-5.50); Red Cell Distribution Width 13.2 % (11.0-16.0); Retic HGB Equivalent 32.4 pg (30.0-35.0); Reticulocyte Percent 1.4 % (0.5-1.8); Reticulocytes Absolute 0.061 X10*6/uL (0.026-0.095); White Blood Count 6.8 X10*3/uL (4.8-10.8)
[2025-02-18 13:54] LABS: Alanine Aminotransferase 28 U/L (0-31); Albumin Level 4.6 g/dL (3.5-5.0); Alkaline Phosphatase 89 U/L (39-117); Anion Gap 9 (12-20); Aspartate Amino Transferase 24 U/L (5-31); Bilirubin Total 0.3 mg/dL (0.0-1.0); Blood Urea Nitrogen 13 mg/dL (9-16); Calcium 9.3 mg/dL (8.4-10.2); Carbon Dioxide 30 mmol/L (22-29); Chloride 104 mmol/L (96-108); Estimated Glomerular Filt Rate > 60; Glucose Random 87 mg/dL (60-115); Iron 55 mcg/dL (30-160); Percent Iron Saturation 21 % (15-50); Potassium 3.9 mmol/L (3.3-5.1); Sodium 139 mmol/L (135-145); Total Iron Binding Capacity 263 mcg/dL (228-428); Total Protein 7.4 g/dL (6.5-8.0); Unsaturated Iron Binding 208 ug/dL
[2025-02-18 14:13] LABS: HBc Num1 0.07 S/CO (0.00-0.79); Hepatitis B Core Antibody Nonreactive (Nonreactive); Hepatitis B Surface Antigen Negative (Negative); ~Hepatitis B Surface Antibody REACTIVE (Nonreactive)
[2025-02-18 14:16] LABS: Ferritin 132 ng/mL (10-250); TSH reflex Free T4 2.68 uIU/mL (0.32-4.0); Vitamin D 25-OH Total 30.8 ng/mL (>30)
--- OUTSIDE RECORDS SUMMARY | 2025-02-18 14:17 | XMS_ITS | Clinical Summary ---
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 [phone] * Iron And Total Iron Binding Capacity (02/18/2025 12:23 PM EDT) Iron 55 30 - 160 mcg/dL [facility] Total Iron Binding Capacity 263 228 - 428 mcg/dL [facility] Percent Iron Saturation 21 15 - 50 % [facility] Unsaturated Iron Binding 208 ug/dL [facility] Blood Venous blood specimen / Unknown 02/18/2025 12:23 PM EDT 02/18/2025 1:23 PM EDT Clau Nguyen MD LAB BLOOD ORDERABLES Final Resul t Performing Organization Address City/[facility]/ZIP Co de Phone Number [facility] [address] [place] [phone] * Reticulocyte Count (02/18/2025 12:23 PM EDT) Reticulocytes Absolute 0.061 0.026 - 0.095 X10*6/uL [facility] Immature Retic Fraction 10.0 3.0 - 15.9 % [facility] Retic HGB Equivalent 32.4 30.0 - 35.0 pg [facility] Reticulocyte Percent 1.4 0.5 - 1.8 % [facility] Blood Venous blood specimen / Unknown 02/18/2025 12:23 PM EDT 02/18/2025 1:23 PM EDT Clau Nguyen MD LAB BLOOD ORDERABLES Final Resul t Performing Organization Address City/[facility]/ZIP Co de Phone Number [facility] [address] [place] [phone] * Ferritin (02/18/2025 12:23 PM EDT) Pathologist [facility] Ferritin 132 10 - 250 ng/mL [facility] Blood Venous blood specimen / Unknown 02/18/2025 12:23 PM EDT 02/18/2025 1:23 PM EDT Clau Nguyen MD LAB BLOOD ORDERABLES Final Resul t [facility] [address] [place] [phone] * (ABNORMAL) Comprehensive Metabolic Panel (02/18/2025 12:23 PM EDT) Pathologist [facility] Sodium 139 135 - 145 mmol/L [facility] Potassium 3.9 3.3 - 5.1 mmol/L [facility] Chloride 104 96 - 108 mmol/L [facility] Carbon Dioxide 30(H) 22 - 29 mmol/L [facility] Anion Gap 9(L) 12 - 20 [facility] Urea Nitrogen (BUN) 13 9 - 16 mg/dL [facility] Creatinine, Serum 0.67 0.5 - 1.4 mg/dL [facility] Estimated Glomerular Filt Rate >60 [facility] Comment:Chronic Kidney Disea se: Estimated GFR < 60 mL/min/[id number] Kidney Disease: Estimated GFR < 15 mL/min/1.73m2 Glucose 87 60 - 115 mg/dL [facility] Calcium 9.3 8.4 - 10.2 mg/dL [facility] Bilirubin, Total 0.3 0.0 - 1.0 mg/dL [facility] Aspartate Amino Transferase 24 5 - 31 U/L [facility] Alanine Aminotransferase 28 0 - 31 U/L [facility] Total Protein 7.4 6.5 - 8.0 g/dL [facility] Albumin Level 4.6 3.5 - 5.0 g/dL [facility] Alkaline Phosphatase 89 39 - 117 U/L [facility] Blood Venous blood specimen / Unknown 02/18/2025 12:23 PM EDT 02/18/2025 1:23 PM EDT Clau Nguyen MD LAB BLOOD ORDERABLES Final Resul t [facility] [address] [place] [phone] * POCT HGB A1C (02/18/2025 11:45 AM EDT) Hemoglobin A1C 5.3 4.0 - 6.0 % QC Media Lot # [id number] Lot# Expiration Date [id number] Blood 02/18/2025 11:4 5 AM EDT us Clau Nguyen MD POINT OF CARE TEST ENTER/EDIT OR DERABLES Final Result * POCT Glucose (02/18/2025 11:45 AM EDT) Only the most recent of2 resultswithin the time period is included. Glucose Blood, POC 87 60 - 200 mg/dL Comment:Random QC Media Lot # [id number] Lot# Expiration Date Blood Capillary blood specimen / Unknown 02/18/2025 11:45 AM EDT us Clau Nguyen MD POINT OF CARE TEST ENTER/EDIT OR DERABLES Final Result * POCT glycosylated hemoglobin (Hgb A1c) (12/07/2024 4:10 PM EDT) Hemoglobin A1C 6.0 4.0 - 6.0 % QC Media Lot # [id number] Lot# Expiration Date Blood Capillary blood specimen / Unknown 12/07/2024 4:10 PM EDT us Clau Nguyen MD POINT OF CARE TEST ENTER/EDIT OR DERABLES Final Result * (ABNORMAL) Lipid Panel with Reflex to Direct LDL (06/23/2024 4:20 PM EDT) Triglycerides 144 <150 mg/dL [facility] Comment:Desirable Triglyceri de: less than 150 mg/dLBorderline High Triglyceride 150-199 mg/dLHigh Triglyceride: 200-499 mg/dLVery High Triglyceride: greater than or equal to 5OO mg/dL Cholesterol 126 <200 mg/dL [facility] Comment:Desirable Cholestero l: less than 200 mg/dLBorderline High Cholesterol: 200-239 mg/dLHigh Cholesterol: greater than 239 mg/dL LDL Cholesterol Calculated 58 <100 mg/dL [facility] Comment:Desirable LDL: less than 100 mg/dLNear Optimal/Above Optimal LDL: 110- 129 mg/dLBorderline High LDL: 130-159 mg/dLHigh LDL: 160-189 mg/dLVery High LDL: greater than or equal to 190 mg/dL HDL Cholesterol 40(L) >40 mg/dL [facility] Comment:Desirable HDL: great er than 40 mg/dL Note: This HDL assay may give artificially low results in patients with liver disease. Blood 06/23/2024 4:20 PM EDT 06/23/2024 5:33 PM EDT Clau Nguyen MD LAB BLOOD ORDERABLES Final Resul t Performing Organization Address [facility] de Phone Number [facility] [address] [place] [phone] * Albumin, Random Urine W/Creatinine (06/23/2024 4:20 PM EDT) Creatinine, Urine 46.89 mg/dL [facility] Microalbumin Urine <5.0 mg/L [facility] Microalbum Creatinine Ratio Ur TNP <30 ug/mg cr [facility] Comment:Unable to calculate albumin/creatinine ratio due to lowmicroalbumin or creatinine result. Urine 06/23/2024 4:20 PM EDT 06/23/2024 5:33 PM EDT Clau Nguyen MD LAB URINE ORDERABLES Final Resul t Performing Organization Address [facility] de Phone Number [facility] [address] [place] [phone] * BI US Breast Limited Bilateral (05/20/2023 3:40 PM EDT) Anatomical Region Laterality Modality Breast Bilateral Ultrasound 05/20/2023 3:40 PM EDT Narrative 05/20/2023 4:01 PM EDT ? [facility] ? [address] ?[place] [address] ? Ultrasound Report ? Signed ? Patient: Dietz,Alejandra ?MR#: [id number] ? : 1975 ?Acct:[id number] ? Age/Sex: 47 / F ?ADM Date: 09/11/23 ? Loc: HO.MAMMO ? Attending Dr: Clau Nguyen MD ? Ordering Physician: Clau Nguyen MD ?? Date of Service: 05/20/23 ?? Procedure(s): US breast BI limited mamm only ?? Accession Number(s): [id number] ? cc: Clau Nguyen MD ? EXAMINATION: [...] 1558 ? DD/ 1540 ? TD/TT: ? 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 Procedure Note Donshemarter, Image - 06/03/2023 [facility] [address] [place] [address] [place] [address] Ultrasound Report Signed Patient: Bossman Dietz#: [id number] : 1975Acct:[id number] Age/Sex: 47 / FADM Date: 05/20/23 Loc: VIPIN Attending Dr: Clau Nguyen MD Ordering Physician: Clau Nguyen MD Date of Service: 05/20/23 Procedure(s): US breast BI limited mamm only Accession Number(s): [id number] cc: Clau Nguyen MD EXAMINATION: MM DIAGNOSTIC [...] in OV> 05/20/23 1558 DD/ 1540 TD/TT: Payloader Machine Operator: Clau Nguyen MD [facility] PROCEDURES Edited Result - Final * HEPATITIS C AB W/REFL TO HCV RNA, QN, PCR (01/05/2021 10:58 AM EDT) HEPATITIS C ANTIBODY NON-REACT MARIA LUISA NON-REACT MARIA LUISA [facility] INDEX 0.01 <1.00 [facility] Comment: ?? HCV antibody was non-reactive. There is no laboratory ?? evidence of HCV infection. ?? In most cases, no further action is required. However, if recent HCV exposure is suspected, a test for HCV RNA (test code 77876) is suggested. ?? For additional information please refer to http://education.[employer]/faq/DPJ61l1 (This link is being provided for informational/ educational purposes only.) ?? 01/05/2021 10:5 8 AM EDT Clau Nguyen MD HISTORICAL/NON ORDERABLE LABS Fi nal Result [facility] [address] * HIV 1/2 ANTIGEN/ANTIBODY,FOURTH GENERATION W/RFL (01/05/2021 10:58 AM EDT) HIV-1/2 ANTIGEN AND ANTIBODIES, 4TH GENERATION W/ REFLEX NON-REACT MARIA LUISA NON-REACT MARIA LUISA [facility] Comment: HIV-1 antigen and HIV-1/HIV-2 [...] ? For additional information please refer to http://education.[employer]/faq/CKK497 (This link is being provided for informational/ educational purposes only.) ? The performance of this assay has not been clinically validated in patients less than 2 years old. ?? 01/05/2021 10:5 8 AM EDT us Clau Nguyen MD LAB BLOOD ORDERABLES Final Resul t [facility] [address] from Last 3 Months or Most Recently Relevant to Health Maintenance Insurance [facility] , [address] [place] [address] Care Teams Chief Payroll Clerk Relationship Specialty Start Date End Date Clau Nguyen MD [address] [place], [place] [phone] PCP - General Family Medicine 01/05/21 Misael Gardner FNP [address] [place] [address] Nurse Practitioner Family Medicine 08/13/23
[2025-02-18 14:21] LABS: Vitamin B12 401 pg/mL (200-900)
[2025-02-19 08:05] LABS: Hepatitis A Antibody IgG Nonreactive (Nonreactive); ~Hepatitis A Antibody IgG 0.39 S/CO (0.00-0.99)
== END 2025-02-18 12:21 | disposition home or self-care (01) ==
LOC: HO.HHCL 12:20
PROVIDERS: Visit Provider Family Medicine
DX: Z01.84 Encounter for antibody response examination (principal); R53.83 Other fatigue; R32 Unspecified urinary incontinence; E56.9 Vitamin deficiency, unspecified
CPT/HCPCS: 36415; 80053; 81001; 82306; 82607; 82728; 82746; 83540; 84443; 85025; 85045; 86704; 86706; 86708; 87086; 87340

== ENCOUNTER 2025-02-26 14:04 | Outpatient (AMB) | payer OTHER, SELFPAY ==
--- OUTSIDE RECORDS SUMMARY | 2025-02-26 14:06 | XMS_ITS | Clinical Summary ---
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 The performance of this assay has not been clinically validated in patients less than 2 years old. 01/05/2021 10:5 8 AM EDT Clau Nguyen MD LAB BLOOD ORDERABLES Final Resul t Performing Organization Address [facility] Formerly [facility] Anywhere [address] from Last 3 Months or Most Recently Relevant to Health Maintenance Insurance [facility] Care Teams Crew Leader Gluing Relationship Specialty Start Date End Date Clau Nguyen MD [address] [place] [address] PCP - General Family Medicine 01/05/21 Misael Gardner FNP [address] [place] [address] Nurse Practitioner Family Medicine 08/13/23
--- NOTE | 2025-02-26 14:11 | MHC.OFFVIS ---
Vital Signs 02/26/25 14:13 Height 5 ft 2 in Weight 152 lb 1.903 oz BMI 27.8 BP 98/56 L Blood Pressure Location Lt brachial Position Sitting Pulse 91 Intake Visit Reasons: [place] Screening r/s 03/02, 01/26 Intake Note: Alejandra presents in the office as a colonoscopy screening. CC: states that moujaro messes with her bowels but her weight has gone down. Allergies latex (LATEX) Allergy (Intermediate, Verified 02/26/25 14:14) ITCHY NO SOB pseudoephedrine (From Sudafed) Adverse Reaction (Intermediate, Verified 02/26/25 14:36) Palpitations Medication List - Last Reconciled 02/26/25 by María Petersen CNP aspirin (Adult Low Dose Aspirin) 81 mg PO DAILY bisacodyl 5 mg PO ONCE 1 day blood pressure test kit-large (Omron Blood Pressure Monitor-3 Series kit) As directed lorazepam (Ativan) 1 mg PO BEDTIME PRN lorazepam 1 mg PO DAILY PRN ondansetron 4 mg PO Q8H PRN polyethylene glycol 3350 (Miralax) 238 grams PO ONCE polyethylene glycol 3350 (Miralax) 17 grams PO DAILY 30 days sennosides-docusate sodium 8.6-50 mg (Senna Plus) 2 tab-caps (2 x 8.6-50 mg) PO BEDTIME PRN tirzepatide (Mounjaro) mg subcut trazodone 50 mg PO BEDTIME PRN venlafaxine ER 75 mg PO DAILY HPI HPI [place] Screening r/s 03/02, 01/26: Details: Patient is a 49-year-old female with PMH of obesity. Referred by PCP for pre colonoscopy screening. This will be Alejandra's first colonoscopy. She reports daily regular BMs prior to initiation of tirzepatide six months ago. States she can now go days without a bowel movement. She reports relief with OTC laxative tea and enema. She denies any associating symptoms including no n/v, ab pain or melena/hematochezia. She also denies any upper GI symptoms; no pyrosis, regurgitation or dysphasia. Patient denies: fever/chills or unintentional wt loss. Social hx: -denies ETOH use -denies recreational drug use -non-smoker - family hx as below -denies personal hx of CA -denies significant cardiopulmonary history -tolerated anesthesia in the past without difficulty. PFSH Medical History (Updated 02/26/25 @ 15:59 by María Petersen CNP) Constipation Colon cancer screening Pancreatitis delivery delivered Surgical History History of cholecystectomy H/O: hysterectomy Family History (Updated 02/26/25 @ 14:42 by María Petersen CNP) Paternal Grandmother Colon cancer Mother Colon polyps Maternal Grandfather Colon cancer Social History Alcohol intake: never Review of Systems Const Reports as per HPI ENT Reports as per HPI Card Reports as per HPI Resp Reports as per HPI GI Reports as per HPI Reports as per HPI Physical Exam Const General: healthy appearing, no acute distress and well developed Nutritional Appearance: well nourished Orientation/consciousness: patient oriented x3 HEENT Head: Yes normal to inspection, Yes normocephalic and Yes atraumatic Face and sinus: Yes normal facial exam Eyes General: appearance normal, both eyes and all related structures Neck Neck: Yes normal visual inspection Resp Effort & Inspection: normal respiratory effort, able to speak in complete sentences, no tracheal deviation and symmetric chest movement Auscultation: clear to auscultation bilaterally Cardio Jugular venous distension: no JVD Rate: regular rate Rhythm: regular rhythm Heart sounds: S1 normal heart sound present, S2 normal heart sound present, no gallops and no murmurs GI Inspection: Yes normal to inspection and No distended Palpation (GI): Soft to palpation, not firm, nontender and No hepatosplenomegaly present Auscultation: normal bowel sounds (limited by compression garment in place) Neuro General: patient oriented x3 Gait exam (Neuro): Normal gait present Psych Appearance: grossly normal Mental Status: mental status grossly normal Speech and movement: Normal speech and movement present Affect: normal affect Attitude: cooperative Thought process: Normal thought process present Thought content: Normal thought content present Insight: Good insight present (Psych) Judgement: Good judgement present (Psych) Assessment & Plan Assessment & Plan (1) Colon cancer screening: Code(s): Z12.11 - Encounter for screening for malignant neoplasm of colon Category: Medical Plan: Due for index screening colonoscopy. No alarm features. Medications: -prescriptions for laxative tablets and MiraLax sent to pharmacy; instructions for Gatorade purchase and clear liquid diet given. - understands to hold tirzepatide 7 days prior to procedure. Patient educated on scheduling process, procedure preparation, including avoiding certain foods and ensuring clear liquid intake Advised on necessity for ride post-procedure due to sedation. (2) Constipation: Code(s): K59.00 - Constipation, unspecified Category: Medical Qualifiers: Constipation type: drug induced constipation Qualified Code(s): K59.03 - Drug induced constipation Plan: Onset after the initiation of tirzepatide, normal bowel pattern prior. Medications: Start Miralax daily; combo laxative-stool softener tablet as needed. Avoid enemas unless directed by provider Lifestyle Modifications: Continue high-fiber diet with vegetables, monitor fiber intake considering possible GLP-1 (Mounjaro) side effects. Plan Follow-up after colonoscopy or sooner as needed Time: I spent a total of 20 minutes on the date of encounter which includes: Preparing to see the patient (reviewed previous documentation, test results and medical history) Performing a medically appropriate exam and/or evaluation Ordering medications, tests, and procedures Documenting clinical information in the health record Medications: New polyethylene glycol 3350 (Miralax) per colonoscopy prep instructions 238 grams PO ONCE 238 grams 0RF bisacodyl Take four tablets once for 1 day per colonoscopy instructions 5 mg PO ONCE 4 tabs 0RF 1 day polyethylene glycol 3350 (Miralax) Take 17G (one cap full) daily with 8oz of water 17 grams PO DAILY 510 grams 2RF constipation 30 days sennosides-docusate sodium 8.6-50 mg (Senna Plus) take two tablets at bedtime as needed for constipation 2 tab-caps (2 x 8.6-50 mg) PO BEDTIME PRN 180 caps 1RF constipation Coding Level of Care Code New Pt Tele New Pt Level 3 (87127) Patient Type New Diagnoses Colon cancer screening Z12.11 Drug-induced constipation K59.03 Constipation type: drug induced constipation
[2025-02-26 14:13] VITALS: BP 98/56; PULSE 91; BMI 27.8
== END 2025-02-26 14:44 | disposition home or self-care (01) ==
LOC: HO.HGI 14:05
PROVIDERS: Visit Provider Nurse Practitioner Family
DX: Z01.818 Encounter for other preprocedural examination (principal); Z12.11 Encounter for screening for malignant neoplasm of colon; K59.03 Drug induced constipation
CPT/HCPCS: 99203

== ENCOUNTER → 2025-02-26 14:04 | Outpatient (BNVA) | payer OTHER, SELFPAY | PROVIDERS: Visit Provider Nurse Practitioner Family ==

== ENCOUNTER 2025-07-08 10:35 | Emergency (ER) | payer OTHER, SELFPAY ==
--- OUTSIDE RECORDS SUMMARY | 2024-09-22 13:45 | XMS_ITS | Encounter Summary ---
Author Organization [facility] Address [address] [place] [phone] Phone Care Team Providers Care Labor Conciliator Name Role Phone Clau Nguyen MD Primary Care Provider [phone] Encounter Details Date Type Department Care Team (Late st Contact Info) Description 09/22/2024 12:45 PM [facility] Hospital Encounter [facility] [address] [place] [phone] Cahty Tao FNP [address] [place] [id number] [email or web address] Social History Tobacco Use Types Packs/Day Years Used Date Smoking Tobacco: Never Smokeless Tobacco: Never Alcohol Use Standard Drinks/Week Comments Yes 0 (1 standard drink = 0.6 oz pur e alcohol) Education Answer Date Recorded Are you interested in more education? Not on rafaela e 01/04/2023 Are you concerned about learning? Not on file 01/04/2023 No 01/04/2023 No 01/04/2023 Digital Access Answer Date Recorded No 02/04/2023 No 02/04/2023 Reliable internet access at home? Not on file 02/04/2023 Device with a working camera? Not on file Comments No Sex and Gender Information Value Date Recorded Sex Assigned at Female 12/20/2017 1:35 PM EDT Legal Sex Female 9:30 PM EDT Gender Identity Female 12/20/2017 1:35 PM EDT Sexual Orientation Straight 12/20/2017 1: 35 PM EDT documented as of this encounter Plan of Treatment Not on file documented as of this encounter Procedures Procedure Name Priority Date/Time Associated Diagnosis Comments XR SHOULDER 2 VIEWS (LEFT) Urgent/patient waiting 09/22/2024 12:51 PM EST Calcific tendonitis of left shoulder documented in this encounter Results * XR SHOULDER 2 VIEWS (LEFT) (09/22/2024 12:51 PM EST) Anatomical Region Laterality Modality Shoulder Left Computed Radiogr aphy 09/22/2024 1:17 PM EST Impressions 09/22/2024 1:17 PM EST No fracture or dislocation. Normal acromioclavicular joint. Amorphous calcification abutting the humeral head, may represent calcific tendinitis of the rotator cuff, age indeterminate. Narrative 09/22/2024 1:17 PM EST XR SHOULDER 2 OR MORE VIEWS (LEFT) Referring clinician's provided indication for this examination in Psychiatric: Pain; pain generalized ac area for one week. Woke up with it. No injury Procedure Note James Baldwin MD, PhD - 09/22/2024 XR SHOULDER 2 OR MORE VIEWS (LEFT) Referring clinician's provided indication for this examination in Psychiatric:Pain; pain generalized ac area for one week. Woke up with it. No injury IMPRESSION: No fracture or dislocation. Normal acromioclavicular joint. Amorphouscalcification abutting the humeral head, may represent calcific tendinitisof the rotator cuff, age indeterminate. Cathy Tao SLPS IMG XR UPPER EXTREMITY Farnaz l Result documented in this encounter Visit Diagnoses Not on filedocumented in this encounter Care Teams Labor Conciliator Relationship Specialty Start Date End Date Clau Nguyen MD [address] [place] [id number] PCP - General Family Medicine 01/23/24 documented as of this encounter Additional Source Comments The information contained in this document represents components of the legal health record. It is not the complete legal health record.[facility]
--- NOTE | ~2025-07-08 | XR_ITS ---
EXAMINATION: XR CHEST CLINICAL INFORMATION: Pnuemonia? fatigue COMPARISON: Previous chest x-ray July 2022 TECHNIQUE: Frontal view of the chest was obtained. FINDINGS: No significant abnormality is noted involving the heart, lungs, mediastinum, bony thorax or soft tissues. XR/XR chest 1V IMPRESSION: Unremarkable examination. Electronically signed by: Barbara Tavarez MD 07/08/2025 11:30 AM EDT RP
[2025-07-08 10:40] VITALS: BP 142/70; PULSE 90; RESP 18; TEMP 36.1; O2SAT 100; BMI 26.7
--- NOTE | 2025-07-08 10:41 | ECG_ITS ---
Test Reason : WEAKNESS Blood Pressure : */* mmHG Vent. Rate : 88 BPM Atrial Rate : 88 BPM P-R Int : 144 ms QRS Dur : 78 ms QT Int : 352 ms P-R-T Axes : 43 -12 19 degrees QTcB Int : 425 ms Normal sinus rhythm Possible Anterior infarct , age undetermined Abnormal ECG When compared with ECG of 13-Jan-2023 12:49, No significant change was found Referred By: Allen Aguilar Electronically Signed By: MIRIAM BISHOP
--- NOTE | 2025-07-08 10:43 | ED_ITS ---
HPI - General Adult General Chief complaint: General Medical Stated complaint: lightheaded Time Seen by Provider: 07/08/25 13:30 Source: patient Mode of arrival: ambulatory Limitations: no limitations History of Present Illness ED Provider: SARI BURNS PA-C HPI narrative: 49-year-old female with pmhx significant for type 2 diabetes, HTN, TIA, fatty liver presents to the ED today from work for evaluation of light headedness. She is currently on mounjaro for management of T2DM as well as weight control. Her Mounjaro was recently increased, she believes this was back in February however can not recall when her last appointment was. She states that she was started on 7.5 however urged her PCP to increase it to 10 as she was not seeing results. She states that she does not feel as though her dose needs to be adjusted since she is losing weight. She tries to eat things throughout the day however does not have an appetite. Denies fever, chills, nausea, vomiting, abdominal pain, diarrhea, flank pain, urinary symptoms Her daughter at bedside endorses concerns that the patient has not eaten in 2 days. She suspects the patient is afraid of gaining weight. She endorses that the patient has appeared more depressed lately regarding the loss of multiple family members. The patient states she has struggled with depression intermittently throughout her life and was previously on medication for this. Her depression is not currently managed with any medications. She endorses seeing a therapist 2 times weekly. She denies any SI/HI. she does not wish to speak with our care team regarding her depression. Related Data Home Medications ?Medication ?Instructions ?Recorded ?Confirmed aspirin 81 mg tablet,delayed 81 mg PO DAILY 10/23/24 0 02/26/25 release (Adult Low Dose Aspirin) trazodone 50 mg tablet 50 mg PO BEDTIME PRN 5 02/26/25 venlafaxine 75 mg capsule,extended 75 mg PO DAILY 10/1002/26/25 release 24 hr blood pressure test kit-large #1 ea 02/26/25 02/26/25 (Omron Blood Pressure Monitor-3 Series kit) tirzepatide 7.5 mg/0.5 mL mg subcut 02/26/25 02/26/25 subcutaneous pen injector (Mounjaro) Previous Rx's ?Medication ?Instructions ?Recorded ondansetron 4 mg disintegrating 4 mg PO Q8H PRN nausea and 12/25/20 tablet vomiting #20 tabs lorazepam 1 mg tablet (Ativan) 1 mg PO BEDTIME PRN anx iety #10 07/06/22 tabs lorazepam 1 mg tablet 1 mg PO DAILY PRN anxiety #7 tabs 01/13/23 bisacodyl 5 mg tablet,delayed 5 mg PO ONCE 1 day #4 ta bs 02/26/25 release polyethylene glycol 3350 17 17 g PO DAILY constipation 30 days 02/26/25 gram/dose oral powder (Miralax) #510 grams polyethylene glycol 3350 17 238 g PO ONCE #238 grams 0 02/26/25 gram/dose oral powder (Miralax) sennosides 8.6 mg-docusate sodium 2 tab-cap (2 x 8.6-5 0 mg) PO 02/26/25 50 mg capsule (Senna Plus) BEDTIME PRN constipation #1 80 caps Allergies Allergy/AdvReac Type Severity Reaction Status Date / Time latex (LATEX) Allergy Intermediate ITCHY NO Verified 07/08/25 10:42 SOB pseudoephedrine (From AdvReac Intermediate Palpitation Verified 07/08/25 10:42 Sudafed) s Review of Systems 2 Review of Systems: Yes all other systems are reviewed and are negative [facility] Past Medical History Attestation statement: The following information was validated with the patient. Source: old records reviewed and nursing notes reviewed Medical History (Updated 07/09/25 @ 00:00 by Riddhi Marrero) Constipation Colon cancer screening Pancreatitis delivery delivered Surgical History History of cholecystectomy H/O: hysterectomy Family History Family History (Updated 02/26/25 @ 14:42 by María Petersen CNP) Paternal Grandmother Colon cancer Mother Colon polyps Maternal Grandfather Colon cancer Social History Social History Alcohol intake: never Advance Directives: No Advance Directives Information Provided: No Physical Exam ED Vital Signs: Vital Signs - 24 hr 07/08/25 10:40 07/08/25 16:16 07/08/25 16:16 Temperature 97 F Pulse Rate 90 95 95 Respiratory Rate 18 18 Blood Pressure 142/70 H 100/61 100/61 Pulse Oximetry 100 100 Oxygen Delivery Method Room Air Room Air 07/08/25 16:17 07/08/25 16:17 07/08/25 17:18 Temperature 98.7 F Pulse Rate 107 H 117 H 105 H Respiratory Rate 16 Blood Pressure 97/56 L 101/58 L 101/58 L Pulse Oximetry 95 Oxygen Delivery Method Room Air BMI result Body Mass Index 26.7 Hypertensive General: Well appearing, in no acute distress. Skin: Warm, dry, intact. No rashes or lesions. Head: Normocephalic, atraumatic. EENT: Hearing is intact b/l. Conjunctiva clear. Sclera is anicteric. PERRLA. EOM intact. Moist mucous membranes.? Neck: Supple without LAD Cardiac: Chest wall symmetric. RRR Lungs: Normal respiratory effort without accessory muscle use. CTA bilaterally. Ext: Upper and lower extremities atraumatic, without tenderness, deformity, swelling or erythema Neuro: AOx3. Normal speech. normal finger to nose, heel to paulino. Ambulating with steady gait. Course Course Course Narrative: RME: 55 yold female presents to the ED fatigue, loss of appetite, nuasea, vomitting, and gneralized weakness for couple of days. patient denies any abdominal pain or genitoruarnary symptoms. labs, EKG, and chest xray ordered. NIH Score zero Reevaluation(s) Reevaluation #1: CBC without leukocytosis or left shift. No anemia. H&H stable. Chemistry without acute electrolyte abnormality requiring intervention. No SHAYY. Liver function and lipase WNL. Troponin undetectable. Urine without infection. Negative COVID, flu, strep. Chest x-ray does not demonstrate pneumonia. EKG showing normal sinus rhythm without acute ischemic changes > ortho vitals negative I had a lengthy discussion with patient and her daughter. Her daughter appears more concerned about her symptoms and that patient does. On further questioning with patient, it sounds like her mounjaro may be creating an eating disorder to an extent. she appears to fear eating and becomes agitated at the thought of decreasing the dose of this medication. Her workup is quite unremarkable. I stressed the importance of eating meals throughout the day even though her appetite is suppressed. I stressed the importance of following up with her PCP/prescriber Dr. Daniels regarding a dose adjustment. both patietn and daughter verbalize understanding. Regarding her increasing depression, I did offer care team evaluation however patient is declining at this time. She states she meets with a therapist 1-2 times weekly. She will consider going on medication for this however is not interested at this time. She denies any SI/HI. At this time, I feel patient is stable for discharge home with outpatient follow up. Patient has remained stable throughout ED visit today. Discussed worrisome signs and symptoms and when to return to the ED. All questions answered at this time. Patient is agreeable with disposition and stable for discharge. Medications Administered Discontinued Medications Generic Name Dose Route Start Last Admin Trade Name Freq PRN Reason Stop Dose Admin Sodium Chloride 1,000 mls @ 999 mls/hr 07/08/25 14:30 07/08/25 17:10 Ns IV 07/08/25 15:30 Infused .Q1H1M MIK Infusion Medical Decision Making Medical Decision Making [facility] Narrative: 49-year-old female with pmhx significant for type 2 diabetes, HTN, TIA, fatty liver presents to the ED today from work for evaluation of light headedness. What care differential diagnosis includes anemia, electrolyte abnormality, dehydration, medication side effect, orthostatic hypotension. Less likely PE, pneumonia, UTI. Unlikely cerebellar stroke, CVA/TIA. Labs, EKG, viral swabs, UA ordered from triage. Plan to add on ortho vitals and a L of IV fluids with re-evaluation. Differential Diagnosis Differential Diagnoses: The differential diagnosis associated with the presentation includes As above Admission/Observation Not indicated Lab Data [facility] Lab Attestation statement: I reviewed the patient's lab results. As above 07/08/25 10:57 07/08/25 10:57 Labs: Lab Results 07/08/25 07/08/25 Range/Units 10: 15:08 WBC 8.9 (4.8-10.8) X10*3/uL RBC 4.34 (4.20-5.50) X10*6/uL Hgb 12.6 (12.0-16.0) g/dl Hct 37.9 (37.0-47.0) % MCV 87.3 (80.0-98.0) fL MCH 29.0 (27.0-33.0) pg MCHC 33.2 (31.0-35.0) g/dl RDW 12.3 (11.0-16.0) % Plt Count 325 (160-400) X10*3/uL MPV 10.7 (9.4-12.3) fL Immature Gran % (Auto) 0.2 (0.0-0.4) % Neut % (Auto) 71.9 (45-73) % Lymph % (Auto) 21.9 (20-40) % [place] % (Auto) 4.1 (2-11) % Eos % (Auto) 1.2 (0-4) % Baso % (Auto) 0.7 (0-2) % Lymph # (Auto) 2.0 (1.2-4.9) X10*3/uL [place] # (Auto) 0.4 (0.1-1.2) X10*3/uL Eos # (Auto) 0.1 (0.0-0.4) X10*3/uL Baso # (Auto) 0.1 (0.0-0.2) X10*3/uL Abs Immat Gran (auto) 0.02 (0.00-0.03) X10*3/uL Absolute Neuts (auto) 6.4 (2.0-8.3) x10*3/uL Absolute Nucleated RBC 0.000 (0.0-0.012) X10*3/uL Nucleated RBC % (auto) 0.0 (0.0-0.2) /100WBC Sodium 142 (135-145) mmol/L Potassium 4.0 (3.3-5.1) mmol/L Chloride 107 (96-108) mmol/L Carbon Dioxide 27 (22-29) mmol/L Anion Gap 12 (12-20) BUN 10 (9-16) mg/dL Creatinine 0.64 (0.5-1.4) mg/dL Estim Creat Clear Calc 93.8 Estimated GFR > 60 Random Glucose 91 (60-115) mg/dL Calcium 9.7 (8.4-10.2) mg/dL Magnesium 2.1 (1.6-2.6) mg/dL Total Bilirubin 0.3 (0.0-1.0) mg/dL AST 22 (5-31) U/L ALT 27 (0-31) U/L Alkaline Phosphatase 100 (39-117) U/L Troponin I High Sens < 2.7 (<3.5-17.0) ng/L Total Protein 7.6 (6.5-8.0) g/dL Albumin 4.5 (3.5-5.0) g/dL Lipase 13 (8-78) U/L Urine Color Yellow Urine Appearance Clear Urine pH >= 9.0 (5.0-9.0) Ur Specific [place] <= 1.005 (1.005-1.025) Urine Protein Negative (Neg-Trace) mg/dL Urine Glucose (UA) Negative (Negative) mg/dL Urine Ketones Negative (Negative) mg/dL Urine Blood Negative (Negative) Urine Nitrite Negative (Negative) Ur Leukocyte Esterase Trace H (Negative) Urine RBC 0-2 (0-2) /HPF Urine WBC 0-5 (0-5) /HPF Ur Squamous Epith Cells 0-2 (0-2) /HPF Urine Bacteria None Seen (None Seen) Hyaline Casts 0-2 (0-2) /LPF COVID-19 (JANICE) Negative (Negative) COVID-19 Clin Com See Note Influenza Type A (HAWA) Negative (Negative) Influenza Type B (HAWA) Negative (Negative) Influenza A & B Note See Note S. pyogenes GrpA HAWA Negative (Negative) Independent Interpretation I performed an independent interpretation of an: EKG and Plain X-Ray Interpretation: EKG showing normal sinus rhythm, rate of 88 beats per minute, no acute ischemic changes or ST elevations Chest x-ray without infiltrate or consolidation Radiology Impression Discussion of test interpretation with radiology: I have reviewed the radiologist's reading. Radiologist Impression: Procedure(s): XR chest 1V Accession Number(s): [id number] cc: Allen Aguilar; [facility]~ Reason for Exam: Pnuemonia? fatigue EXAMINATION: XR CHEST CLINICAL INFORMATION: Pnuemonia? fatigue COMPARISON: Previous chest x-ray July 2022 TECHNIQUE: Frontal view of the chest was obtained. FINDINGS: No significant abnormality is noted involving the heart, lungs, mediastinum, bony thorax or soft tissues. XR/XR chest 1V IMPRESSION: Unremarkable examination. Electronically signed by: Barbara Tavarez MD 07/08/2025 11:30 AM EDT Independent Historian Clinical information obtained from an independent historian. History obtained from or confirmed by: Other (daughter) External Record Review External record reviewed: Inpatient record and Office record Chronic Conditions Patient?s care impacted by: Diabetes Social Determinants Patient?s care significantly limited by Social Determinants of Health including: Other Social Determinant of Health Critical Care Time Critical Care Time Critical Care Time: No Discharge Plan Discharge Clinical Impression: Side effect of medication Patient Disposition: Home, Self-Care Instructions: Tirzepatide (By injection) (Magdalena Ibarra) Additional Instructions: You were evaluated in the ED today for evaluation of light headedness and decreased appetite. Your work up is reassuring. As discussed, I feel your symptoms are related to your high doses of mounjaro. Please follow up with your prescriber regarding this medication as it may need to be adjusted. It is important that you try eating multiple meals throughout the day even though your appetite is quite suppressed. We offered care team evaluation for your depression however you are declining at this time. Please follow up with your PCP for this as well as they may choose to start you on treatment or refer to a therapist. Return with any new or worsening symptoms. [facility] [address] [place] [id number] Prescriptions: No Action ondansetron 4 mg tablet,disintegrating 4 mg PO Q8H PRN (Reason: nausea and vomiting) Qty: 20 0RF lorazepam [Ativan] 1 mg tablet 1 mg PO BEDTIME PRN (Reason: anxiety) Qty: 10 0RF lorazepam 1 mg tablet 1 mg PO DAILY PRN (Reason: anxiety) Qty: 7 0RF bisacodyl 5 mg tablet,delayed release (DR/EC) 5 mg PO ONCE 1 Days Qty: 4 0RF Rx Instructions: Take four tablets once for 1 day per colonoscopy instructions polyethylene glycol 3350 [Miralax] 17 gram/dose powder 238 g PO ONCE Qty: 238 0RF Rx Instructions: per colonoscopy prep instructions (DME) blood pressure test kit-large [Omron BP Monitor-3 Series] Kit See Rx Instructions .ROUTE DAILY Qty: 1 Rx Instructions: As directed Mounjaro 7.5 mg/0.5 mL pen injector subcut polyethylene glycol 3350 [Miralax] 17 gram/dose powder 17 g PO DAILY 30 Days Qty: 510 2RF Rx Instructions: Take 17G (one cap full) daily with 8oz of water Senna Plus 8.6-50 mg capsule 2 tab-cap PO BEDTIME PRN (Reason: constipation) Qty: 180 1RF Rx Instructions: take two tablets at bedtime as needed for constipation venlafaxine 75 mg capsule,extended release 24hr 75 mg PO DAILY aspirin [Adult Low Dose Aspirin] 81 mg tablet,delayed release (DR/EC) 81 mg PO DAILY trazodone 50 mg tablet 50 mg PO BEDTIME PRN Referrals: Clau Nguyen MD [Primary Care Provider, Internal Medicine] Interventions: ED Discharge Assessment Last Done: 07/08/25 17:18 Discharge Date/Time: 07/08/25 17:18 Print Language: Irish
[2025-07-08 11:07] LABS: MANUAL DIFF FLAG NO
[2025-07-08 11:08] LABS: Hematocrit 37.9 % (37.0-47.0); Hemoglobin 12.6 g/dl (12.0-16.0); Imm Gran Abs Auto 0.02 X10*3/uL (0.00-0.03); Imm Gran Pct Auto 0.2 % (0.0-0.4); Lymphocytes Absolute Auto 2.0 X10*3/uL (1.2-4.9); Mean Corpuscular HGB Conc 33.2 g/dl (31.0-35.0); Mean Corpuscular Hemoglobin 29.0 pg (27.0-33.0); Mean Corpuscular Volume 87.3 fL (80.0-98.0); NRBC Abs Auto 0.000 X10*3/uL (0.0-0.012); NRBC Pct Auto 0.0 /100WBC (0.0-0.2); Platelet Count 325 X10*3/uL (160-400); Red Blood Count 4.34 X10*6/uL (4.20-5.50); White Blood Count 8.9 X10*3/uL (4.8-10.8)
[2025-07-08 11:24] LABS: Alanine Aminotransferase 27 U/L (0-31); Albumin Level 4.5 g/dL (3.5-5.0); Alkaline Phosphatase 100 U/L (39-117); Anion Gap 12 (12-20); Aspartate Amino Transferase 22 U/L (5-31); Blood Urea Nitrogen 10 mg/dL (9-16); Calcium 9.7 mg/dL (8.4-10.2); Carbon Dioxide 27 mmol/L (22-29); Chloride 107 mmol/L (96-108); Creatinine Clr Calc Pharmacy 93.8; Estimated Glomerular Filt Rate > 60; Lipase 13 U/L (8-78); Magnesium 2.1 mg/dL (1.6-2.6); Potassium 4.0 mmol/L (3.3-5.1); Sodium 142 mmol/L (135-145); Total Protein 7.6 g/dL (6.5-8.0)
[2025-07-08 11:33] LABS: IDNOW Serial# 6674DD1D; Influenza B2 Negative (Negative)
[2025-07-08 11:34] LABS: COVID-19 Test Negative (Negative); IDNOW Serial# 08D9AD1C; IDNOW Serial# 152EDE1D; Strep A Nucleic Acid Negative (Negative); Troponin-I High Sensitivity < 2.7 ng/L (<3.5-17.0)
--- NOTE | 2025-07-08 13:26 | PC.NURSE ---
pt reports that she is only eating fruits, her daughter reports that she is eating fruit and lettuce and refuses other foods.
[2025-07-08 16:16] VITALS: BP 100/61; PULSE 95; RESP 18; O2SAT 100
[2025-07-08 16:17] VITALS: BP 101/58; BP 97/56; PULSE 107; PULSE 117
[2025-07-08 16:21] LABS: Appearance Urine Clear; Glucose Urine UA Negative (Negative); PH >= 9.0 (5.0-9.0); Specific Gravity - Urine <= 1.005 (1.005-1.025); UMIC TRIGGER UACC YES
--- OUTSIDE RECORDS SUMMARY | 2025-07-08 16:40 | XMS_ITS | Encounter Summary ---
Author Organization [facility] Address [address] [place] [address] Care Team Providers Care Burglary Investigator Name Role Phone Name, Jesus PERLA Primary Care Provider Unavailabl e Tomy Ortez MD Primary Care Provider Unavail able Encounter Details Date Type Department Care Team Description 08/17/2014 Scrap Drop Engineer Report Medical Records [address] [place] [id number] Mahin Fan, PA-C Social History Tobacco Use Types Packs/Day Years Used Date Smoking Tobacco: Never Alcohol Use Standard Drinks/Week Comments No 0 (1 standard drink = 0.6 oz pur e alcohol) Sex Assigned at Date Recorded Not on file documented as of this encounter Plan of Treatment Not on file documented as of this encounter Visit Diagnoses Not on filedocumented in this encounter Care Teams Burglary Investigator Relationship Specialty Start Date End Date Name, MD Jesus PCP - General 02/14/09 10/10/15 Tomy Ortez MD PCP - General Internal Medicine 10/11/15 documented as of this encounter
--- OUTSIDE RECORDS SUMMARY | 2025-07-08 16:40 | XMS_ITS | Encounter Summary ---
Author Organization [employer] Address [address] [facility] [address] [place] [address] Care Team Providers Care Educational Psychology Teacher Name Role Phone Clau Nguyen MD Primary Care Provider [phone] Misael Gardner Unavailable Unavailable Reason for Visit * Reason Onset Date Comments Med Refill 06/10/2025 Encounter Details Date Type Department Care Team (Late st Contact Info) Description 06/10/2025 Refill [facility] MEDICINE [address] [place], [place] [phone] Clau Nguyen MD [address] [place], [place] [phone] Type 2 diabetes mellitus without complication, without long-term current use of insulin (HCC) Social History Tobacco Use Types Packs/Day Years [...] complication, without long-term current use of insulin (HCC) documented in this encounter Additional Health Concerns Assessment Noted Time PHQ-9 Depression Total Score: 9 02/19/20 25 11:43 AM EDT documented as of this encounter Care Teams Educational Psychology Teacher Relationship Specialty Start Date End Date Clau Nguyen MD [address] [place] [address] PCP - General Family Medicine 01/05/21 Misael Gardner FNP [address] [place] [address] Nurse Practitioner Family Medicine 08/13/23 documented as of this encounter
--- OUTSIDE RECORDS SUMMARY | 2025-07-08 16:40 | XMS_ITS | Encounter Summary ---
Author Organization [employer] Address [address] [place] [address] [address] [place] [address] Care Team Providers Care Rehabilitation Program Manager Name Role Phone Clau Nguyen MD Primary Care Provider Misael Gardner Unavailable Unavailable Reason for Visit * Reason Comments Med Refill Encounter Details Date Type Department Care Team (Late st Contact Info) Description 02/03/2025 Refill [facility] MEDICINE [address] [place], [place] [phone] Clau Nguyen MD [address] [place], [place] [phone] Generalized anxiety disorder with panic attacks Social [...] documented as of this encounter Care Teams Rehabilitation Program Manager Relationship Specialty Start Date End Date Clau Nguyen MD [address] [place] [address] PCP - General Family Medicine 01/05/21 Misael Gardner FNP [address] [place] [address] Nurse Practitioner Family Medicine 08/13/23 documented as of this encounter
--- OUTSIDE RECORDS SUMMARY | 2025-07-08 16:40 | XMS_ITS | Encounter Summary ---
Author Organization [employer] Address [address] [facility] [address] [place] [address] Care Team Providers Care Dry Kiln Operator Name Role Phone Clau Nguyen MD Primary Care Provider [phone] Misael Gardner Unavailable Unavailable Reason for Visit * Reason Onset Date Comments Med Refill 10/07/2024 Encounter Details Date Type Department Care Team (Late st Contact Info) Description 10/07/2024 Refill [facility] MEDICINE [address] [place], [place] [phone] Clau Nguyen MD [address] [place], [place] [phone] Mood disorder (CMS/HCC); Generalized anxiety disorder with [...] documented as of this encounter Care Teams Dry Kiln Operator Relationship Specialty Start Date End Date Clau Nguyen MD [address] [place] [address] PCP - General Family Medicine 01/05/21 Misael Gardner FNP [address] [place] [address] Nurse Practitioner Family Medicine 08/13/23 documented as of this encounter
--- OUTSIDE RECORDS SUMMARY | 2025-07-08 16:40 | XMS_ITS | Clinical Summary ---
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 mg/dLBorderline High Triglyceride 150-199 mg/dLHigh Triglyceride: 200-499 mg/dLVery High Triglyceride: greater than or equal to 5OO mg/dL Cholesterol 126 <200 mg/dL [facility] Comment:Desirable Cholestero l: less than 200 mg/dLBorderline High Cholesterol: 200-239 mg/dLHigh Cholesterol: greater than 239 mg/dL LDL Cholesterol Calculated 58 <100 mg/dL [facility] Comment:Desirable LDL: less than 100 mg/dLNear Optimal/Above Optimal LDL: 110- 129 mg/dLBorderline High LDL: 130-159 mg/dLHigh LDL: 160-189 mg/dLVery High LDL: greater than or equal to 190 mg/dL HDL Cholesterol 40(L) >40 mg/dL [facility] Comment:Desirable HDL: great er than 40 mg/dL Note: This HDL assay may give artificially low results in patients with liver disease. Blood 06/23/2024 4:20 PM EDT 06/23/2024 5:33 PM EDT Clau Nguyen MD LAB BLOOD ORDERABLES Final Resul t Performing Organization Address City/[facility] Co de Phone Number [facility] [address] [place] [phone] * Albumin, Random Urine W/Creatinine (06/23/2024 4:20 PM EDT) Creatinine, Urine 46.89 mg/dL [facility] Microalbumin Urine <5.0 mg/L [facility] Microalbum Creatinine Ratio Ur TNP <30 ug/mg cr [facility] Comment:Unable to calculate albumin/creatinine ratio due to lowmicroalbumin or creatinine result. Urine 06/23/2024 4:20 PM EDT 06/23/2024 5:33 PM EDT Clau Nguyen MD LAB URINE ORDERABLES Final Resul t Performing Organization Address City/[facility]/ZIP Co de Phone Number [facility] [address] [place] [phone] * BI US Breast Limited Bilateral (05/20/2023 3:40 PM EDT) Anatomical Region Laterality Modality Breast Bilateral Ultrasound 05/20/2023 3:40 PM EDT Narrative 05/20/2023 4:01 PM EDT [facility] [address] [place], [place] [address] Ultrasound Report Signed Patient: Alejandra Dietz MR#: [id number] : 1975 Acct:[id number] Age/Sex: 47 / F ADM Date: 05/20/23 Loc: HO.MAMMO Attending Dr: Clau Nguyen MD Ordering Physician: Clau Nguyen MD Date of Service: 05/20/23 Procedure(s): US breast BI limited mamm only Accession Number(s): [id number] cc: Clau Nguyen MD EXAMINATION: MM DIAGNOSTIC [...] in OV> 05/20/23 1558 DD/ 1540 TD/TT: Metal Washing Machine Operator: Procedure Note Donotuseinterpreter, Image - 06/03/2023 [facility] [address] [place], [place] [address] Ultrasound Report Signed Patient: Bossman Dietz#: [id number] : 1975Acct:[id number] Age/Sex: 47 / FADM Date: 05/20/23 Loc: HOPiperMAMMO Attending Dr: Clau Nguyen MD Ordering Physician: Clau Nguyen MD Date of Service: 05/20/23 Procedure(s): US breast BI limited mamm only Accession Number(s): [id number] cc: Clau Nguyen MD EXAMINATION: MM DIAGNOSTIC [...] in OV> 05/20/23 1558 DD/ 1540 TD/TT: Metal Washing Machine Operator: Clau Nguyen MD [facility] US PROCEDURES Edited Result - Final * HEPATITIS C AB W/REFL TO HCV RNA, QN, PCR (01/05/2021 10:58 AM EDT) HEPATITIS C ANTIBODY NON-REACT MARIA LUISA NON-REACT MARIA LUISA [facility] INDEX 0.01 <1.00 [facility] Comment: HCV antibody was non-reactive. There is no laboratory evidence of HCV infection. In most cases, no further action is required. However, if recent HCV exposure is suspected, a test for HCV RNA (test code 72156) is suggested. For additional information please refer to http://education.[employer]ri/faq/ZRA69r1 (This link is being provided for informational/ educational purposes only.) 01/05/2021 10:5 8 AM EDT Clau Nguyen MD HISTORICAL/NON ORDERABLE LABS Fi nal Result [facility] [address] * HIV 1/2 ANTIGEN/ANTIBODY,FOURTH GENERATION W/RFL [...] purpose. For additional information please refer to http://education.[facility]/faq/QNR528 (This link is being provided for informational/ educational purposes only.) The performance of this assay has not been clinically validated in patients less than 2 years old. 01/05/2021 10:5 8 AM EDT us Clau Nguyen MD LAB BLOOD ORDERABLES Final Resul t [facility] [address] from Last 3 Months or Most Recently Relevant to Health Maintenance Insurance [facility] Care Teams Account Specialist Relationship Specialty Start Date End Date Clau Nguyen MD [address] [place] [address] [phone] PCP - General Family Medicine 01/05/21 Misael Gardner FNP [address] [place], [place] Nurse Practitioner Family Medicine 08/13/23
--- OUTSIDE RECORDS SUMMARY | 2025-07-08 16:40 | XMS_ITS | Encounter Summary ---
Author Organization [facility] Address [address] [place] [address] Care Team Providers Care Maintenance Service Supervisor Name Role Phone Tomy Ortez MD Primary Care Provider Unavail able Encounter Details Date Type Department Care Team Description 02/08/2016 Transfer Records Medical Records [address] [place] [address] Abstract, Provider Social History Tobacco Use Types Packs/Day Years Used Date Smoking Tobacco: Never Alcohol Use Standard Drinks/Week Comments Yes 0 (1 standard drink = 0.6 oz pur e alcohol) occ, holidays Sex Assigned at Date Recorded Not on file documented as of this encounter Plan of Treatment Not on file documented as of this encounter Visit Diagnoses Not on filedocumented in this encounter Care Teams Maintenance Service Supervisor Relationship Specialty Start Date End Date Tomy Ortez MD PCP - General Internal Medicine 10/11/15 documented as of this encounter
--- OUTSIDE RECORDS SUMMARY | 2025-07-08 16:40 | XMS_ITS | Encounter Summary ---
Author Organization [employer] Address [address] [facility] 7t [place] [address] Care Team Providers Care Utility Tractor Operator Name Role Phone Clau Nguyen MD Primary Care Provider [phone] Misael Gardner Unavailable Unavailable Reason for Visit * Reason Onset Date Comments Med Change Request Appointment 03/18/2024 LVM-Re: her apt for today as [id number] @9am Encounter Details Date Type Department Care Team (Late st Contact Info) Description 03/18/2024 Refill [facility] MED[facility] [address] [place], [place] [phone] Clau Nguyen MD [address] [place], [place] [phone] Social History Tobacco Use Types Packs/Day Years [...] documented as of this encounter Care Teams Utility Tractor Operator Relationship Specialty Start Date End Date Clau Nguyen MD [address] [place] [address] PCP - General Family Medicine 01/05/21 Misael Gardner FNP [address] [place] [address] Nurse Practitioner Family Medicine 08/13/23 documented as of this encounter
--- OUTSIDE RECORDS SUMMARY | 2025-07-08 16:40 | XMS_ITS | Encounter Summary ---
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 Kasandra Ansari PA-C * Telephone Encounter - Chrissie Chantaleparker - 10/02/2018 1:50 PM EST We have attempted to contact this patient for the order to see AMUSEMENT CENTRE MANAGER for a routine exam. However, the patient has not responded to any of our phone calls. A letter has also been sent. For this reason, the order will be closed. If the patient changes her mind, please have her contact AMUSEMENT CENTRE MANAGER for an appointment. Thank you. documented in this encounter Plan of Treatment Not on file documented as of this encounter Visit Diagnoses Not on filedocumented in this encounter Care Teams Public Records Researcher Relationship Specialty Start Date End Date Tomy Ortez MD PCP - General Internal Medicine 10/11/15 documented as of this encounter
--- OUTSIDE RECORDS SUMMARY | 2025-07-08 16:40 | XMS_ITS | Encounter Summary ---
Author Organization [employer] Address [address] [facility] 7t [place] [address] Care Team Providers Care Head Athletic Trainer/Strength Coach Name Role Phone Clau Nguyen MD Primary Care Provider [phone] Misael Gardner Unavailable Unavailable Reason for Visit * Reason Onset Date Comments Med Refill 10/14/2023 Encounter Details Date Type Department Care Team (Late st Contact Info) Description 10/14/2023 Refill [facility] MED[facility]INE [address] [place], [place] [phone] Misael Gardner FNP Generalized anxiety disorder with [...] documented as of this encounter Care Teams Head Athletic Trainer/Strength Coach Relationship Specialty Start Date End Date Clau Nguyen MD [address] [place] [address] PCP - General Family Medicine 01/05/21 Misael Gardner FNP [address] [place] [address] Nurse Practitioner Family Medicine 08/13/23 documented as of this encounter
--- OUTSIDE RECORDS SUMMARY | 2025-07-08 16:40 | XMS_ITS | Encounter Summary ---
Author Organization [employer] Address [address] [facility] 7t [place] [address] Care Team Providers Care Computer Recycling Worker Name Role Phone Clau Nguyen MD Primary Care Provider [phone] Misael Gardner Unavailable Unavailable Reason for Visit * Reason Onset Date Comments Med Refill 06/27/2023 Encounter Details Date Type Department Care Team (Late st Contact Info) Description 06/27/2023 Refill [facility] MED[facility]INE [address] [place], [place] [phone] Misael Gardner FNP Generalized anxiety disorder with [...] documented as of this encounter Care Teams Computer Recycling Worker Relationship Specialty Start Date End Date Clau Nguyen MD [address] [place] [address] PCP - General Family Medicine 01/05/21 Misael Gardner FNP [address] [place] [address] Nurse Practitioner Family Medicine 08/13/23 documented as of this encounter
--- OUTSIDE RECORDS SUMMARY | 2025-07-08 16:40 | XMS_ITS | Encounter Summary ---
Author Organization [employer] Address [address] [facility] [address]t [place] [address] Care Team Providers Care Peripheral Equipment Operator Name Role Phone Clau Nguyen MD Primary Care Provider [phone] Misael Gardner Unavailable Unavailable Encounter Details Date Type Department Care Team (Late st Contact Info) Description 08/18/2023 Orders Only [facility] [address] [place], [place] [phone] Clau Nguyen MD [address] [place], [place] [phone] Social History Tobacco Use Types Packs/Day Years [...] documented as of this encounter Care Teams Peripheral Equipment Operator Relationship Specialty Start Date End Date Clau Nguyen MD [address] [place] [address] PCP - General Family Medicine 01/05/21 Misael Gardner FNP [address] [place] [address] Nurse Practitioner Family Medicine 08/13/23 documented as of this encounter
--- OUTSIDE RECORDS SUMMARY | 2025-07-08 16:40 | XMS_ITS | Encounter Summary ---
Author Organization [employer] Address [address] [facility] 7t [place] [address] Care Team Providers Care Sales Planner Name Role Phone Clau Nguyen MD Primary Care Provider [phone] Misael Gardner Unavailable Unavailable Reason for Visit * Reason Onset Date Comments Med Refill 07/15/2023 Encounter Details Date Type Department Care Team ([facility] st Contact Info) Description 07/15/2023 Refill [facility] MED & PEDS [address] [place] [address] Misael Gardner FNP Social History Tobacco Use [...] PM EST documented as of this encounter Functional Status * Over the past 2 weeks, how often have you been bothered by any of the following problems? Question Answer Date of Assessment Author Patient Health Questionnaire -2 Score 2 07/18/2023 1:43 PM Taina Cabrera [place] * If you checked off any problems on this questionnaire so far, Question Answer Date of Assessment Author How difficult have these problems made it for you to do your work, take care of things at home, or get along with other people? Somewhat difficult 07/18/2023 1:43 PM Taina Cabrera MA * Over the past 2 weeks, how often have you been bothered by any of the following problems? Question Answer Date of Assessment Author Little interest or pleasure in doing things Several days 07/18/2023 1:43 PM Shirley Cabrera MA Feeling down, depressed, or hopeless Several days 07/18/2023 1:43 PM Shirley Cabrera [place] Trouble falling or staying asleep, or sleeping too much More than half the days 07/18/2023 1:43 PM Shirley Cabrera [place] Feeling tired or having little energy Nearly every day 07/18/2023 1:43 PM Shirley Cabrera [place] Poor appetite or overeating More than half the days 07/18/2023 1:43 PM Shirley Cabrera [place] Feeling bad about yourself - or that you are a failure or have let yourself or your family down Not at all 07/18/2023 1:43 PM Shirley Cabrera MA Trouble concentrating on things, such as reading the newspaper or watching television Not at all 07/18/2023 1:43 PM Shirley Cabrera MA Moving or speaking so slowly that other people could have noticed? Or the opposite - being so fidgety or restless that you have been moving around a lot more than usual. Not at all 07/18/2023 1:43 PM Shirley Cabrera MA Thoughts that you would be better off or hurting yourself in some way Not at all 07/18/2023 1:43 PM Shirley Cabrera MA Patient Health Questionnaire-9 Score 9 07/18/2023 1:43 PM Shirley Cabrera MA documented as of this encounter Plan of Treatment Not on file documented as of this encounter Visit Diagnoses Not on filedocumented in this encounter Additional Health Concerns Assessment Noted Time PHQ-9 Depression Total Score: 8 06/18/20 23 1:56 PM EDT documented as of this encounter Care Teams Sales Planner Relationship Specialty Start Date End Date Clau Nguyen MD [address] [place] [address] PCP - General Family Medicine 01/05/21 Misael Gardner FNP [address] [place] [address] Nurse Practitioner Family Medicine 08/13/23 documented as of this encounter
--- OUTSIDE RECORDS SUMMARY | 2025-07-08 16:40 | XMS_ITS | Encounter Summary ---
Author Organization [facility] Address [address] [place] [address] Care Team Providers Care Retort Pre Cooker Name Role Phone Tomy Ortez MD Primary Care Provider Unavail able Reason for Visit * Reason Onset Date Comments Emg 11/14/2018 Encounter Details Date Type Department Care Team Description 11/14/2018 Telephone Physiatry - [address] [address] Dana Kulkarni MD [address] [place] [address] [address] [place] [phone] Emg Social History Tobacco Use Types Packs/Day Years Used Date Smoking Tobacco: Never Smokeless Tobacco: Never Alcohol Use Standard Drinks/Week Comments Yes 0 (1 standard drink = 0.6 oz pur e alcohol) once per year Sex Assigned at Date Recorded Not on file documented as of this encounter Miscellaneous Notes * Telephone Encounter - Kasandra Ansari PA-C - 11/14/2018 5:23 PM EST Noted. Kasandra Ansari PA-C * Telephone Encounter - Maliha Korin - 11/14/2018 2:14 PM EST Patient is referred to: Physiatry Reason for referral: bilateral hand numbness Priority: Next Routine FYI Patient has no showed her consultation with Jamari Trinidad 10/14/18 and no showed the emg with Dr Le 11/11/18. Please refer externally if patient would like to see a airline station agent per Dr Le. documented in this encounter Plan of Treatment Not on file documented as of this encounter Visit Diagnoses Not on filedocumented in this encounter Care Teams Retort Pre Cooker Relationship Specialty Start Date End Date Tomy Ortez MD PCP - General Internal Medicine 10/11/15 documented as of this encounter
--- OUTSIDE RECORDS SUMMARY | 2025-07-08 16:40 | XMS_ITS | Encounter Summary ---
Author Organization [employer] Address [address] [facility] 7t [place] [address] Care Team Providers Care Business Support Name Role Phone Clau Nguyen MD Primary Care Provider [phone] Misael Gardner Unavailable Unavailable Reason for Visit * Reason Onset Date Comments Med Refill 06/27/2023 Encounter Details Date Type Department Care Team ([facility] st Contact Info) Description 06/27/2023 Refill [facility] [address] [place] [address] Misael Gardner FNP Social History Tobacco Use Types Packs/Day Years Used Date Smoking Tobacco: Never Passive Smoke Exposure: Never Smokeless Tobacco: Never Depression Answer Date Recorded Patient Health Questionnaire-9 Score 8 06/18/2023 Housing Stability Answer Date Recorded What is your housing situation today? I have padillayulia orellana 06/27/[address] you [...] documented as of this encounter Care Teams Business Support Relationship Specialty Start Date End Date Clau Nguyen MD [address] [place] [address] PCP - General Family Medicine 01/05/21 Misael Gardner FNP [address] [place] [address] Nurse Practitioner Family Medicine 08/13/23 documented as of this encounter
--- OUTSIDE RECORDS SUMMARY | 2025-07-08 16:40 | XMS_ITS | Encounter Summary ---
Author Organization [facility] Address [address] [place] [address] Care Team Providers Care Comber Operator Name Role Phone Name, Jesus PERLA Primary Care Provider Unavailabl e Tomy Ortez MD Primary Care Provider Unavail able Encounter Details Date Type Department Care Team Description 07/06/2014 Janitorial Manager Report Medical Records [address] [place] [phone] Mahin Fan, PA-C Social History Tobacco Use [...] on filedocumented in this encounter Care Teams Comber Operator Relationship Specialty Start Date End Date Name, MD Jesus PCP - General 02/14/09 10/10/15 Tomy Ortez MD PCP - General Internal Medicine 10/11/15 documented as of this encounter
--- OUTSIDE RECORDS SUMMARY | 2025-07-08 16:40 | XMS_ITS | Encounter Summary ---
Author Organization [facility] Address [address] [place] [address] Care Team Providers Care Cargo Surveyor Name Role Phone Tomy Ortez MD Primary Care Provider Unavail able Reason for Visit * Reason Onset Date Comments radiology 08/23/2016 mri testing. Encounter Details Date Type Department Care Team Description 08/23/2016 Telephone Adult Medicine [address] [address] Meghan Dahl NP radiology (mri testing.) Social History Tobacco Use Types Packs/Day Years Used Date Smoking Tobacco: Never Alcohol Use Standard Drinks/Week Comments Yes 0 (1 standard drink = 0.6 oz pur e alcohol) occ, holidays Sex Assigned at Date Recorded Not on file documented as of this encounter Miscellaneous Notes * Telephone Encounter - Otis Lerma - 08/23/2016 11:35 AM EST Alejandra Dietz has not responded to the telephone calls that were made on 07/10/16 and 07/12/16 as well as the letter that was sent on 07/17/16 to schedule an MRI; therefore we are removing the test from our Scheduled Orders Report. Please note that this test must be reordered if required in the future. documented in this encounter Plan of Treatment Not on file documented as of this encounter Visit Diagnoses Not on filedocumented in this encounter Care Teams Cargo Surveyor Relationship Specialty Start Date End Date Tomy Ortez MD PCP - General Internal Medicine 10/11/15 documented as of this encounter
--- OUTSIDE RECORDS SUMMARY | 2025-07-08 16:40 | XMS_ITS | Clinical Summary ---
Author Organization [facility] Address [address] [facility] [address] [place] [address] Phone Care Team Providers Care Tack Puller Machine Name Role Phone Clau Nguyen MD Primary Care Provider [phone] Allergies Active Allergy Reactions Criticality Noted Date Comments Dextromethorphan Hbr High 03/28/2009 Other Reaction(s): Other Rapid heart beat, anxiety Kiwi 09/22/2024 Latex Rash Low 07/29/2017 Latex, Natural Rubber 07/29/2017 Morphine 09/22/2024 Pineapple Itching 03/27/2023 Pseudoephedrine 03/05/2016 Medications amoxicillin-clav ulanate (AUGMENTIN) 875-125 mg per tablet Take 1 tablet by mouth 2 (two) times a day. 01/17/20 24 Active hydrOXYzine HCL (ATARAX) 10 MG tablet Take 10 mg by mouth every 6 (six) hours as needed for anxiety. 12/31/19 24 Active LORazepam (ATIVAN) 1 MG tablet TAKE 1/2 TO 1 TABLET BY MOUTH ONE OR TWO TIMES DAILY NEEDED FOR ANXIETY 01/08/20 24 Active aspirin 81 MG EC tablet Take 81 mg by mouth daily. Active atorvastatin (LIPITOR) 80 MG tablet Take 80 mg by mouth. 03/20/20 24 Active dulaglutide (TRULICITY) 1.5 mg/0.5 mL subcutaneous injection Inject 1.5 mg under the skin. 08/04/20 24 Active TRULICITY 0.75 mg/0.5 mL subcutaneous injection INJECT ONE PEN (=0.75MG) SUBCUTANEOUSLY ONCE A WEEK DIRECTED 07/20/20 24 Active escitalopram oxalate (LEXAPRO) 20 MG tablet 06/23/20 24 Active metFORMIN (GLUCOPHAGE-XR) 500 MG 24 hr tablet TAKE 2 TABLETS BY MOUTH TWICE DAILY IN THE MORNING AND EVENING WITH MEALS. DO NOT BREAK, CRUSH, DISSOLVE OR CHEW. Active traZODone (DESYREL) 50 MG tablet TAKE 1/2 TO 1 TABLET BY MOUTH EVERY DAY AT BEDTIME Active venlafaxine (EFFEXOR-XR) 37.5 MG 24 hr capsule TAKE 1 CAPSULE BY MOUTH EVERY DAY FOR ONE WEEK, THEN INCREASE TO 2 CAPSULES DAILY. DO NOT BREAK, CRUSH, DISSOLVE OR CHEW. 06/24/20 24 Active venlafaxine (EFFEXOR-XR) 75 MG 24 hr capsule TAKE 1 CAPSULE BY MOUTH EVERY DAY AFTER 1 WEEK OF 37.5 MG 06/24/20 24 Active blood-glucose Misc meter 1 each. Active GLUCOSE BLOOD test strip 1 each. Active lancets Misc Active naproxen (NAPROSYN) 500 MG tablet Take 1 tablet (500 mg total) by mouth 2 (two) times a day for 3 days. 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 Overview (01/23/2024): Last Assessment & Plan: Treated with INh x 6 months Immunizations No known immunizations Social History Tobacco Use Types Packs/Day Years [...] Orientation Straight 12/20/2017 1: 35 PM EDT Last Filed Vital Signs Vital Sign Reading Time Taken Comments Blood Pressure 121/80 09/22/2024 12:12 PM EST Pulse 85 09/22/2024 12:12 PM EST Temperature 36.6 C (97.9 F) 09/22/2024 12:12 PM EST Respiratory Rate 18 09/22/2024 12:12 PM EST Oxygen Saturation 99% 09/22/2024 12:12 PM EST Inhaled Oxygen Concentration - - Weight 86.2 kg (190 lb) 12/28/2020 8:48 PM EDT Height 157.5 cm (5' 2 ) 12/28/2020 8:48 PM EDT Body Mass Index 34.75 12/28/2020 8:48 PM EDT Plan of Treatment Health Maintenance Due Date Last Done Comments LIPID PANEL 1974 DEPRESSION SCREENING 1986 HEPATITIS C SCREENING 1992 HIV ONE-TIME SCREENING (18-65 YEARS) 1992 PAP SMEAR 1995 COLOGUARD 2019 COLONOSCOPY 2019 COLORECTAL CANCER SCREENING 2019 FIT TEST 2019 FOBT 2019 SIGMOIDOSCOPY 2019 VIRTUAL COLONOSCOPY 2019 CREATININE LEVEL 12/28/2021 12/28/2020, , 07/29/2017 ZOSTER VACCINES (1 of 2) 2024 MAMMOGRAM 04/04/2025 04/04/2023 INFLUENZA VACCINE (#1) 2025 , 05/30/2012, 09/10/2011 COVID-19 VACCINE ( season) 2025 08/05/2023, 01/11/2022, 02/02/2021, Additional history exists Adult Td,Tdap Booster 03/09/2031 03/09/2021, 012 RSV VACCINE (1 - 1-dose 75+ series) 2049 PNEUMOCOCCAL VACCINES (50+ years) Completed 08/05/2023 SMOKING STATUS SCREENING (Once After 26 Yrs) Completed 01/23/2024 HEPATITIS A VACCINES Aged Out No long er eligible based on patient's age to complete this topic HIB VACCINES Aged Out No longer eligi ble based on patient's age to complete this topic MENINGOCOCCAL VACCINES (ACWY) Aged Out No longer eligible based on patient's age to complete this topic MENINGOCOCCAL VACCINES (B) Aged Out N o longer eligible based on patient's age to complete this topic Medical Devices Not on file Procedures Procedure Name Priority Date/Time Associated Diagnosis Comments BASIC METABOLIC PANEL STAT 12/28/2020 9:22 PM EDT from Last 3 Months or Most Recently Relevant to Health Maintenance Results * (ABNORMAL) Basic metabolic panel (12/28/2020 9:22 PM EDT) SODIUM 137 133 - 146 mmol/L [facility] CHLORIDE 98 96 - 108 mmol/L [facility] POTASSIUM 4.4 3.3 - 5.1 mmol/L [facility] CO2 29 21 - 35 mmol/L [facility] BUN 8 6 - 19 mg/dL [facility] CREATININE 0.50 0.5 - 1.5 mg/dL [facility] GLUCOSE 119(H) 70 - 99 mg/dL [facility] CALCIUM 10.6(H) 8.4 - 10.3 mg/dL [facility] EGFR 116 >59 mL/min/1.7 3m2 [facility] Comment:Estimated glomerular filtration rate calculated using the CKD-EPI equation. ANION GAP 14 10 - 20 mmol/L [facility] Blood 12/28/2020 9:22 PM EDT 12/28/2020 9:38 PM EDT us Alex Foster MD LAB BLOOD ORDERABLES Final Re sult [facility] [address] [place] [address] from Last 3 Months or Most Recently Relevant to Health Maintenance Insurance HEALTH SAFETY NET PARTIAL Member Subscriber Plan / Payer (Ef fective 2017-Present) Name:Alejandra Dietz Relation to Subscriber:Self Name:Alejandra Dietz Payer ID:Not on file Group ID:Not on file Type:Medicaid Address: [address] HMO [employer] SAFETY NET PARTIAL Member Subscriber Plan / Payer (Ef fective 2017-Present) Name:Alejandra Dietz Relation to Subscriber:Self Name:Alejandra Dietz Payer ID:Not on file Group ID:Not on file Type:Medicaid Address: [address] HMO HEALTH SAFETY NET PARTIAL [facility] PARTIAL [facility] PARTIAL Member Subscriber Plan / Payer (Ef fective 2017-Present) Name:Alejandra Dietz Relation to Subscriber:Self Name:Alejandra Dietz Payer ID:Not on file Group ID:Not on file Type:Medicaid Address: [address] HEALTH SAFETY NET PARTIAL [place], [place] HEALTH SAFETY NET PARTIAL Member Subscriber Plan / Payer (Ef fective 2017-Present) Name:Alejandra Dietz Relation to Subscriber:Self Name:DietzAlejandra Payer ID:Not on file Group ID:Not on file Type:Medicaid Address: [address] [place] HEALTH SAFETY NET PARTIAL Member Subscriber Plan / Payer (Ef fective 2017-Present) Name:J Luis Alejandra Relation to Subscriber:Self Name:DietzAlejandra Payer ID:Not on file Group ID:Not on file Type:Medicaid Address: [address] [facility] NET PARTIAL HMO Care Teams Tack Puller Machine Relationship Specialty Start Date End Date Clau Nguyen MD [address] [place] [phone] PCP - General Family Medicine 01/23/24 Additional Source Comments The information contained in this document represents components of the legal health record. It is not the complete legal health record.[facility]
--- OUTSIDE RECORDS SUMMARY | 2025-07-08 16:40 | XMS_ITS | Encounter Summary ---
Author Organization [employer] Address [address] [facility] 7[address] [place] [address] Care Team Providers Care Grain Mill Worker Name Role Phone Clau Nguyen MD Primary Care Provider [phone] Misael Gardner Unavailable Unavailable Reason for Visit * Reason Onset Date Comments Med Refill 10/05/2024 Encounter Details Date Type Department Care Team (Late st Contact Info) Description 10/05/2024 Refill [facility] MEDICINE [address] [place], [place] [phone] Clau Nguyen MD [address] [place], [place] [phone] Generalized anxiety disorder with panic attacks Social [...] documented as of this encounter Care Teams Grain Mill Worker Relationship Specialty Start Date End Date Clau Nguyen MD [address] [place] [address] PCP - General Family Medicine 01/05/21 Misael Gardner FNP [address] [place] [address] Nurse Practitioner Family Medicine 08/13/23 documented as of this encounter
--- OUTSIDE RECORDS SUMMARY | 2025-07-08 16:40 | XMS_ITS | Encounter Summary ---
Author Organization [employer] Address [address] [facility] [address] [place] [address] Care Team Providers Care Burglar Alarm Assembler Name Role Phone Clau Nguyen MD Primary Care Provider [phone] Misael Gardner Unavailable Unavailable Encounter Details Date Type Department Care Team ([facility] st Contact Info) Description 07/08/2025 Orders Only GENERIC EXTERNAL DATA DEPARTMENT Provider, Generic External Data Social History Tobacco Use Types Packs/Day Years [...] 1 VIEW Routine 07/08/2025 11:20 AM EDT INFLUENZA A B2 ID NOW (FRANCISCO) Routine 07/08/2025 10:57 AM EDT STREP A NUCLEIC ACID Routine 07/08/2025 10:57 AM EDT COVID-19 ID NOW (iMedicare) Routine 07/08/2025 10:57 AM EDT HIGH SENSITIVITY TROPONIN I Routine 07/08/2025 10:57 AM EDT CBC WITH AUTO DIFFERENTIAL Routine 07/08/2025 10:57 AM EDT MAGNESIUM Routine 07/08/2025 10:57 AM EDT LIPASE Routine 07/08/2025 10:57 AM EDT COMPREHENSIVE METABOLIC PANEL Routine 07/08/2025 10:57 AM EDT documented in this encounter Results * XR Chest 1 View (07/08/2025 11:20 AM EDT) Anatomical Region Laterality Modality Chest Radiographic Kat ging 07/08/2025 11:2 0 AM EDT Narrative 07/08/2025 11:33 AM EDT [address] [address] XRay Report Signed Patient: Alejandra Dietz MR#: [id number] : 1975 Acct:[id number] Age/Sex: 49 / F ADM Date: 07/08/25 Loc: HO.ED Attending Dr: Ordering Physician: Allen Aguilar Date of Service: 07/08/25 Procedure(s): XR chest 1V Accession Number(s): [id number] cc: Allen Aguilar; [facility] Reason for Exam: Pnuemonia? fatigue EXAMINATION: XR CHEST CLINICAL INFORMATION: Pnuemonia? fatigue COMPARISON: Previous chest x-ray July 2022 TECHNIQUE: Frontal view of the chest was obtained. FINDINGS: No significant abnormality is noted involving the heart, lungs, mediastinum, bony thorax or soft tissues. XR/XR chest 1V IMPRESSION: Unremarkable examination. Electronically signed by: Barbara Tavarez MD 07/08/2025 11:30 AM EDT Dictated By: Barbara Tavarez MD Signed By: <Electronically signed by Barbara Tavarez MD in OV> 07/08/25 1130 DD/ 1120 TD/TT: 07/08/25 1128 Building Associate: LAURA Procedure Note Donotuseinterpreter, Image - 07/08/[address] [address] XRay Report Signed Patient: Lucas DietzR#: [id number] : 1975Acct:[id number] Age/Sex: 49 / FADM Date: 07/08/25 Loc: HO.ED Attending Dr: Ordering Physician: Allen Aguilar Date of Service: 07/08/25 Procedure(s): XR chest 1V Accession Number(s): [id number] cc: Allen Aguilar; [facility] Reason for Exam: Pnuemonia? fatigue EXAMINATION: XR [...] 07/08/25 1130 DD/ 1120 TD/TT: 07/08/25 1128 Building Associate: LAURA [facility] External Provider IMG XR PROCEDURES Final Result * COVID-19 ID NOW (iMedicare) (07/08/2025 10:57 AM EDT) IDNOW SERIAL# [id number] [facility] COVID-19 TEST Negative Negative [facility] COVID-19 NOTE See Note [facility] Comment: Results are for the identification of SARS-CoV2 RNA. TheSARS-CoV2 RNA is generally detectable in respiratory samplesduring the acute phase of infection. Positive results areindicative of the presence of SARS-CoV-2 RNA; clinicalcorrelation with patient history and other diagnosticinformation is necessary to determine patient infectionstatus. Positive results do not rule out bacterial infectionor co- infection with other viruses.Testing facilities within the [facility] and itsterritories are required to report all positive results [...] use by authorized laboratories.Testing performed on the [employer] ID NOW utilizing NAAT. 07/08/2025 10:5 7 AM EDT 07/08/2025 11:06 AM EDT Generic External Data Provider LAB MOLECULAR JOE GNOSTICS ORDERABLES Final Result Performing Organization Address [facility] de Phone Number [facility] [address] [place] [phone] * Strep A Nucleic Acid (07/08/2025 10:57 AM EDT) IDNOW SERIAL# [id number] [facility] Strep A Nucleic Acid Negative Negative [facility] Comment:All test results mus t [...] GENERAL ORDERABLES Final Result Performing Organization Address [facility] Phone Number [facility] [address] [place] [phone] * High Sensitivity Troponin I (07/08/2025 10:57 AM EDT) TROPONIN I HIGH SENSITIVITY <2.7 <3.5 - 17.0 ng/L [facility] Comment:The Francisco high sens itivity Troponin-I results should beused in conjunction with other diagnostic information suchas ECG, clinical observations and information, and patientsymptoms to aid in the diagnosis of [place]. 07/08/2025 10:5 7 AM EDT 07/08/2025 11:05 AM EDT us Generic External Data Provider LAB BLOOD ORDERAB LES Final Result Performing Organization Address [facility] Co de Phone Number [facility] [address] [place] [phone] * Influenza A B2 ID NOW (Francisco) (07/08/2025 10:57 AM EDT) IDNOW SERIAL# [id number] [facility] Influenza A Negative Negative [facility] Influenza B2 Negative Negative [facility] Influenza A B2 Note See Note [facility] Comment:The [place] ID NOW In [...] GENERAL ORDERABLES Final Result Performing Organization Address [facility] de Phone Number [facility] [address] [place] [phone] * Lipase (07/08/2025 10:57 AM EDT) Lipase 13 8 - 78 U/L [facility] 07/08/2025 10:5 7 AM EDT 07/08/2025 11:05 AM EDT us Generic External Data Provider LAB BLOOD ORDERAB LES Final Result Performing Organization Address [facility] Co de Phone Number [facility] [address] [place] [phone] * Magnesium (07/08/2025 10:57 AM EDT) Magnesium 2.1 1.6 - 2.6 mg/dL [facility] 07/08/2025 10:5 7 AM EDT 07/08/2025 11:05 AM EDT us Generic External Data Provider LAB BLOOD ORDERAB LES Final Result [facility] [address] [place] [phone] * Comprehensive Metabolic Panel (07/08/2025 10:57 AM EDT) Sodium 142 135 - 145 mmol/L [facility] Potassium 4.0 3.3 - 5.1 mmol/L [facility] Chloride 107 96 - 108 mmol/L [facility] Carbon Dioxide 27 22 - 29 mmol/L [facility] Anion Gap 12 12 - 20 [facility] Urea Nitrogen (BUN) 10 9 - 16 mg/dL [facility] Creatinine, Serum 0.64 0.5 - 1.4 mg/dL [facility] Creatinine Clr Calc Pharmacy 93.8 [facility] Comment:Provided height and weight: 157.48 cm,66.224 kg.eGFR (calculated from the MDRD study equation) and eCrCl(calculated from the Cockcroft-Gault equation) are based ondifferent parameters and may not yield comparable results.If eCrCl result is absurd, please check patient'sheight/weight. Estimated Glomerular Filt Rate >60 [facility] Comment:Chronic Kidney Disea se: Estimated GFR < 60 mL/min/1.84a0Mboful Kidney Disease: Estimated GFR < 15 mL/min/1.73m2 Glucose 91 60 - 115 mg/dL [facility] Calcium 9.7 8.4 - 10.2 mg/dL [facility] Bilirubin, Total 0.3 0.0 - 1.0 mg/dL [facility] Aspartate Amino Transferase 22 5 - 31 U/L [facility] Alanine Aminotransferase 27 0 - 31 U/L [facility] Total Protein 7.6 6.5 - 8.0 g/dL [facility] Albumin Level 4.5 3.5 - 5.0 g/dL [facility] Alkaline Phosphatase 100 39 - 117 U/L [facility] 07/08/2025 10:5 7 AM EDT 07/08/2025 11:05 AM EDT us Generic External Data Provider LAB BLOOD ORDERAB LES Final Result [facility] [address] [place] [phone] * CBC auto differential (07/08/2025 10:57 AM EDT) White Blood Count 8.9 4.8 - 10.8 X10*3/uL [facility] Red Blood Count 4.34 4.20 - 5.50 X10*6/uL [facility] Hemoglobin 12.6 12.0 - 16.0 g/dl [facility] Hematocrit 37.9 37.0 - 47.0 % [facility] Mean Corpuscular Volume 87.3 80.0 - 98.0 fL [facility] Mean Corpuscular Hemoglobin 29.0 27.0 - 33.0 pg [facility] Mean Corpuscular HGB Conc 33.2 31.0 - 35.0 g/dl [facility] Red Cell Distribution Width 12.3 11.0 - 16.0 % [facility] Platelet Count 325 160 - 400 X10*3/uL [facility] Mean Platelet Volume 10.7 9.4 - 12.3 fL [facility] Neutrophils Percent Auto 71.9 45 - 73 % [facility] Imm Gran Pct Auto 0.2 0.0 - 0.4 % [facility] Lymphocytes Percent Auto 21.9 20 - 40 % [facility] Monocytes Percent Auto 4.1 2 - 11 % [facility] Eosinophils Percent Auto 1.2 0 - 4 % [facility] Basophils Percent Auto 0.7 0 - 2 % [facility] NRBC Pct Auto 0.0 0.0 - 0.2 /100WBC [facility] Neutrophils Absolute Auto 6.4 2.0 - 8.3 x10*3/uL [facility] Imm Gran Abs Auto 0.02 0.00 - 0.03 X10*3/uL [facility] Lymphocytes Absolute Auto 2.0 1.2 - 4.9 X10*3/uL [facility] Monocytes Absolute Auto 0.4 0.1 - 1.2 X10*3/uL [facility] Eosinophils Absolute Auto 0.1 0.0 - 0.4 X10*3/uL [facility] Basophils Absolute Auto 0.1 0.0 - 0.2 X10*3/uL [facility] NRBC Abs Auto 0.000 0.0 - 0.012 X10*3/uL [facility] 07/08/2025 10:5 7 AM EDT 07/08/2025 11:05 AM EDT us Generic External Data Provider LAB BLOOD ORDERAB LES Final Result Performing Organization Address City/State/[facility] Co de Phone Number [facility] [address] [place] [phone] documented in this encounter Visit Diagnoses Not on filedocumented in this encounter Additional Health Concerns Assessment Noted Time PHQ-9 Depression Total Score: 9 02/19/20 25 11:43 AM EDT documented as of this encounter Care Teams Burglar Alarm Assembler Relationship Specialty Start Date End Date Clau Nguyen MD [address] [place] [address] PCP - General Family Medicine 01/05/21 Misael Gardner FNP [address] [place] [address] Nurse Practitioner Family Medicine 08/13/23 documented as of this encounter
--- OUTSIDE RECORDS SUMMARY | 2025-07-08 16:40 | XMS_ITS | Encounter Summary ---
Author Organization [facility] Address [address] [facility] [address] [place] [phone] Phone Care Team Providers Care Machine Gunner Name Role Phone Tomy Ortez MD Primary Care Provider Unavail able Mami Ramírez MD Primary Care Provi cheyanne Clau Nguyen MD Primary Care Provider [phone] Encounter Details Date Type Department Care Team (Late st Contact Info) Description 07/29/2017 Procedure Pass [facility], Ct Scan - [address] [address] Social History Tobacco Use Types Packs/Day Years [...] on filedocumented in this encounter Care Teams Machine Gunner Relationship Specialty Start Date End Date Tomy Ortez MD PCP - General Endocrinology 07/29/17 12/27/20 Mami Ramírez MD [address] [place] [address] PCP - General Family Medicine 12/28/20 01/22/24 Clau Nguyen MD [address] [place] [address] PCP - General Family Medicine 01/23/24 documented as of this encounter Additional Source Comments The information contained in this document represents components of the legal health record. It is not the complete legal health record.[facility]
--- OUTSIDE RECORDS SUMMARY | 2025-07-08 16:40 | XMS_ITS | Encounter Summary ---
Author Organization [facility] Address [address] [place] [address] Care Team Providers Care Yardage Control Operator Name Role Phone Tomy Ortez MD Primary Care Provider Unavail able Encounter Details Date Type Department Care Team Description 12/11/2016 Rib Cutter Report Medical Records [address] [place] [address] Devonte Ortega MD Social History Tobacco Use Types Packs/Day Years [...] on filedocumented in this encounter Care Teams Yardage Control Operator Relationship Specialty Start Date End Date Tomy Ortez MD PCP - General Internal Medicine 10/11/15 documented as of this encounter
--- OUTSIDE RECORDS SUMMARY | 2025-07-08 16:40 | XMS_ITS | Encounter Summary ---
Author Organization [facility] Address [address] [place] [address] Care Team Providers Care Airdox Fitter Name Role Phone Jesus Blackwell MD Primary Care Provider Unavailabl Tomy Irving MD Primary Care Provider Unavail able Encounter Details Date Type Department Care Team Description 01/27/2015 Pt. Non Urgent Medic al Question Adult Medicine [address] [address] Name, MD Jesus Social History Tobacco Use Types Packs/Day Years Used Date Smoking Tobacco: Never Alcohol Use Standard Drinks/Week Comments No 0 (1 standard drink = 0.6 oz pur e alcohol) Sex Assigned at Date Recorded Not on file documented as of this encounter Progress Notes * Blanquita Sterling M.A. - 01/27/2015 8:05 AM EDTFrom: Alejandra J Luis To: Jesus Blackwell MD Sent: 01/27/2015 12:03 AM EDT Subject: Gram positive cocci What does that mean and what is the next step? Is it going away by itself or do I need to take something, make an appointment? I am not feeling well. Lots of cramps, feeling feverish, very tired to point of exhaustion. Someone's reply will be greatly appreciated. documented in this encounter Plan of Treatment Not on file documented as of this encounter Visit Diagnoses Not on filedocumented in this encounter Care Teams Airdox Fitter Relationship Specialty Start Date End Date Jesus Blackwell MD PCP - General 02/14/09 10/10/15 Tomy Ortez MD PCP - General Internal Medicine 10/11/15 documented as of this encounter
--- OUTSIDE RECORDS SUMMARY | 2025-07-08 16:40 | XMS_ITS | Encounter Summary ---
Author Organization [employer] Address [address] [facility] [address] [place] [address] Care Team Providers Care Renal Dialysis Rn Name Role Phone Clau Nguyen MD Primary Care Provider [phone] Misael Gardner Unavailable Unavailable Reason for Visit * Reason Onset Date Comments Med Refill 09/20/2023 Encounter Details Date Type Department Care Team (Late st Contact Info) Description 09/20/2023 Refill [facility] MEDICINE [address] [place] [address] Misael Gardner FNP Generalized anxiety disorder with [...] documented as of this encounter Care Teams Renal Dialysis Rn Relationship Specialty Start Date End Date Clau Nguyen MD [address] [place] [address] PCP - General Family Medicine 01/05/21 Misael Gardner FNP [address] [place] [address] Nurse Practitioner Family Medicine 08/13/23 documented as of this encounter
--- OUTSIDE RECORDS SUMMARY | 2025-07-08 16:40 | XMS_ITS | Encounter Summary ---
Author Organization [employer] Address [address] [facility] 7 [place] [address] Care Team Providers Care Road Repairer Name Role Phone lCau Nguyen MD Primary Care Provider [phone] Misael Gardner Unavailable Unavailable Reason for Visit * Reason Onset Date Comments Med Refill 10/14/2023 Encounter Details Date Type Department Care Team (Late st Contact Info) Description 10/14/2023 Refill [facility] [address] [place], [place] [phone] Clau Nguyen MD [address] [place], [place] [phone] Type 2 diabetes mellitus without complication, without long-term current use of insulin ([facility]); Dyslipidemia Social History Tobacco Use Types [...] 12:58 PM EST Call to Kaylyn, ext [phone] regarding insurance questions for Pt.. Kaylyn advised to have Pt call Kaylyn to check on insurance status . Call to Pt with this information and Pt is given number to call [phone]. Pt did write this down and will [...] financial help that I can get from [facility]? documented in this encounter Plan of Treatment Not on file documented as of this encounter Visit Diagnoses Diagnosis Type 2 diabetes mellitus without complication, without long-term current use of insulin (HCC) Dyslipidemia Other and unspecified hyperlipidemia documented in this encounter Additional Health Concerns Assessment Noted Time PHQ-9 Depression Total Score: 6 08/26/20 23 11:26 AM EST documented as of this encounter Care Teams Road Repairer Relationship Specialty Start Date End Date Clau Nguyen MD [address] [place] [address] PCP - General Family Medicine 01/05/21 Misael Gardner FNP [address] [place] [address] Nurse Practitioner Family Medicine 08/13/23 documented as of this encounter
--- OUTSIDE RECORDS SUMMARY | 2025-07-08 16:40 | XMS_ITS | Encounter Summary ---
Author Organization [employer] Address [address] [facility] 7t [place] [address] Care Team Providers Care Clubhouse Attendant Name Role Phone Clau Nguyen MD Primary Care Provider [phone] Misael Gardner Unavailable Unavailable Encounter Details Date Type Department Care Team (Late st Contact Info) Description 08/05/2023 Orders Only [facility] 230 [place], [place] [phone] Clau Nguyen MD [address] [place], [place] [phone] Abnormal TSH (Primary Dx) Social History Tobacco [...] Antibodies <1 < or = 1 IU/mL [facility] Comment:THIS TEST WAS PERFOR MED AT:[facility] [employer] [address] [id number] TRAVIS MD 08/06/2023 1:13 PM EST 08/06/2023 3:49 PM EST us Clau Nguyen MD LAB BLOOD ORDERABLES Final Resul t [facility] [address] [place] [phone] * TSH (08/06/2023 1:13 PM EST) Thyroid Stimulating Hormone 1.69 0.32 - 4.0 uIU/mL [facility] Comment:TSH 3rd Generation ( [facility]) Blood Venous blood specimen / Unknown 08/06/2023 1:13 PM EST 08/06/2023 3:49 PM EST us Clau Nguyen MD LAB BLOOD ORDERABLES Final Resul t Performing Organization Address City/[facility]/ZIP Co de Phone Number [facility] [address] [place] [phone] [phone] * T4, Free (08/06/2023 1:13 PM EST) Free T4 (Free Thyroxine) 0.94 0.71 - 1.85 ng/dL [facility] Blood Venous blood specimen / Unknown 08/06/2023 1:13 PM EST 08/06/2023 3:49 PM EST us Clau Nguyen MD LAB BLOOD ORDERABLES Final Resul t Performing Organization Address City/[facility] Co de Phone Number [facility] [address] [place] [phone] documented in this encounter Visit Diagnoses Diagnosis Abnormal TSH- Primary documented in this encounter Additional Health Concerns Assessment Noted Time PHQ-9 Depression Total Score: 9 07/18/20 23 1:43 PM EST documented as of this encounter Care Teams Clubhouse Attendant Relationship Specialty Start Date End Date Clau Nguyen MD [address] [place] [address] PCP - General Family Medicine 01/05/21 Misael Gardner FNP [address] [place] [address] Nurse Practitioner Family Medicine 08/13/23 documented as of this encounter
--- OUTSIDE RECORDS SUMMARY | 2025-07-08 16:41 | XMS_ITS | Encounter Summary ---
Author Organization [employer] Address [address] [place] [address] 7 [place] [address] Care Team Providers Care Greens Planter Name Role Phone Clau Nguyen MD Primary Care Provider [phone] Misael Gardner Unavailable Unavailable Encounter Details Date Type Department Care Team (Late st Contact Info) Description 02/22/2023 Orders Only [facility] [address] [place], [place] [phone] Clau Nguyen MD [address] [place], [place] [phone] Type 2 diabetes mellitus without complication, without long-term current use of insulin ([facility]) (Primary Dx) Social History Tobacco Use [...] complication, without long-term current use of insulin (HCC)- Primary documented in this encounter Additional Health Concerns Assessment Noted Time PHQ-9 Depression Total Score: 8 02/02/20 10:56 AM EDT documented as of this encounter Care Teams Greens Planter Relationship Specialty Start Date End Date Clau Nguyen MD [address] [place] [address] PCP - General Family Medicine 01/05/21 Misael Gardner FNP [address] [place] [address] Nurse Practitioner Family Medicine 08/13/23 documented as of this encounter
--- OUTSIDE RECORDS SUMMARY | 2025-07-08 16:41 | XMS_ITS | Encounter Summary ---
Author Organization [employer] Address [address] [facility] 7t [place] [address] Care Team Providers Care Sweet Pickle Maker Name Role Phone Clau Nguyen MD Primary Care Provider [phone] Misael Gardner Unavailable Unavailable Reason for Visit * Reason Onset Date Comments Nurse Triage 05/12/2024 Encounter Details Date Type Department Care Team (Late st Contact Info) Description 05/12/2024 Telephone [facility] [address] [place], [place] [phone] Clau Nguyen MD 230 [place], [place] [phone] Nurse Triage Social History Tobacco Use Types [...] leg. Pt is advised to come to [facility] today for provider to check the [...] documented as of this encounter Care Teams Sweet Pickle Maker Relationship Specialty Start Date End Date Clau Nguyen MD [address] [place] [address] PCP - General Family Medicine 01/05/21 Misael Gardner FNP [address] [place] [address] Nurse Practitioner Family Medicine 08/13/23 documented as of this encounter
--- OUTSIDE RECORDS SUMMARY | 2025-07-08 16:41 | XMS_ITS | Encounter Summary ---
Author Organization [employer] Address [address] [facility] 7t [place] [address] Care Team Providers Care Parking Lot Manager Name Role Phone Clau Nguyen MD Primary Care Provider [phone] Misael Gardner Unavailable Unavailable Reason for Visit * Reason Onset Date Comments Med Refill 04/02/2025 Encounter Details Date Type Department Care Team (Late st Contact Info) Description 04/02/2025 Refill [facility] [address] [place], [place] [phone] Clau Nguyen MD [address] [place], [place] [phone] Generalized anxiety disorder with panic attacks Social [...] documented as of this encounter Care Teams Parking Lot Manager Relationship Specialty Start Date End Date Clau Nguyen MD [address] [place] [address] PCP - General Family Medicine 01/05/21 Misael Gardner FNP [address] [place] [address] Nurse Practitioner Family Medicine 08/13/23 documented as of this encounter
--- OUTSIDE RECORDS SUMMARY | 2025-07-08 16:41 | XMS_ITS | Encounter Summary ---
Author Organization [employer] Address [address] [facility] 7t [place] [address] Care Team Providers Care Clerical Secretary Name Role Phone Clau Nguyen MD Primary Care Provider [phone] Misael Gardner Unavailable Unavailable Encounter Details Date Type Department Care Team (Late st Contact Info) Description 03/04/2025 Orders Only [facility] [address] [place], [place] [phone] Clau Nguyen MD [address] [place], [place] [phone] Social History Tobacco Use Types Packs/Day Years [...] documented as of this encounter Care Teams Clerical Secretary Relationship Specialty Start Date End Date Clau Nguyen MD [address] [place] [address] PCP - General Family Medicine 01/05/21 Misael Gardner FNP [address] [place] [address] Nurse Practitioner Family Medicine 08/13/23 documented as of this encounter
--- OUTSIDE RECORDS SUMMARY | 2025-07-08 16:41 | XMS_ITS | Encounter Summary ---
Author Organization [employer] Address [address] [place] [address] 7 [place] [address] Care Team Providers Care Cost Manager Name Role Phone Clau Nguyen MD Primary Care Provider [phone] Misael Gardner Unavailable Unavailable Encounter Details Date Type Department Care Team (Late st Contact Info) Description 01/25/2023 Orders Only [facility] [address] [place], [place] [phone] Clau Nguyen MD [address] [place], [place] [phone] Anxiety (Primary Dx); Panic attack Social History [...] agoraphobia documented in this encounter Care Teams Cost Manager Relationship Specialty Start Date End Date Clau Nguyen MD [address] [place], [place] [phone] PCP - General Family Medicine 01/05/21 Misael Gardner FNP [address] [place] [address] Nurse Practitioner Family Medicine 08/13/23 documented as of this encounter
--- OUTSIDE RECORDS SUMMARY | 2025-07-08 16:41 | XMS_ITS | Clinical Summary ---
Author Organization [facility] Address [address] [place] [address] Care Team Providers Care Pheresis Specialist Name Role Phone Tomy Ortez MD Primary Care Provider Unavail able Surgical History Surgery Date Site/Laterality Comments HYSTERECTOMY PROCEDURE: HISTORICAL HYSTERECTOMY; COMMENT: without BSO, for fibroid OTHER SURGICAL HISTORY PROCEDURE: HISTORICAL UNSPECIFIED SURGERY; COMMENT: nasal surgery for chronic sinusitis CHOLECYSTECTOMY PROCEDURE: NM CHOLECYSTECTOMY TONSILLECTOMY PROCEDURE: HISTORICAL TONSILLECTOMY SECTION 1994 [...] (2 - Td or Tdap) 09/10/2021 09/10/2011 Pneumococcal Vaccine: 50+ Years (1 of 1 - PCV) 2024 Zoster Vaccines (1 of 2) 2024 Depression Screening 09/09/2024 COVID-19 Vaccine (1 - 2023-2 5 season) 2025 Influenza Vaccine (#1) 2025 2, 09/10/2011 RSV Immunization Adult Patients (1 - 1-dose 75+ series) 2049 HIB Vaccines Aged Out No longer eligi [...] age to complete this topic Care Teams Pheresis Specialist Relationship Specialty Start Date End Date Tomy Ortez MD PCP - General Internal Medicine 10/11/15
--- OUTSIDE RECORDS SUMMARY | 2025-07-08 16:41 | XMS_ITS | Encounter Summary ---
Author Organization [employer] Address [address] [place] [address] 7 [place] [address] Care Team Providers Care Fruit Grower Name Role Phone Clau Nguyen MD Primary Care Provider [phone] Misael Gardner Unavailable Unavailable Reason for Visit * Reason Onset Date Comments Med Refill 02/25/2023 Encounter Details Date Type Department Care Team (Late st Contact Info) Description 02/25/2023 Refill [facility] [address] [place], [place] [phone] Clau Nguyen MD 230 [place], [place] [phone] Type 2 diabetes mellitus without complication, without long-term current use of insulin ([facility]); Dyslipidemia Social History Tobacco Use [...] documented as of this encounter Care Teams Fruit Grower Relationship Specialty Start Date End Date Clau Nguyen MD [address] [place] [address] PCP - General Family Medicine 01/05/21 Misael Gardner FNP [address] [place] [address] Nurse Practitioner Family Medicine 08/13/23 documented as of this encounter
[2025-07-08 17:18] VITALS: BP 101/58; PULSE 105; RESP 16; TEMP 37.1; O2SAT 95
== END 2025-07-08 17:18 | disposition home or self-care (01) ==
PROVIDERS: Physician Assistant; Emergency Provider Emergency Medicine; PCP Family Medicine
DX: R53.1 Weakness (principal); R53.83 Other fatigue; F50.89 Other specified eating disorder; T50.995A Adverse effect of other drugs, medicaments and biological substances, initial encounter; Y92.89 Other specified places as the place of occurrence of the external cause; Z68.32 Body mass index [BMI] 32.0-32.9, adult; Z79.899 Other long term (current) drug therapy
CPT/HCPCS: 36415; 71045; 80053; 81001; 81003; 83690; 83735; 84484; 85025; 87502; 87635; 87651; 93005; 96360; 96361; 99284

== ENCOUNTER → 2025-07-08 10:41 | Outpatient (BNV) | payer OTHER, SELFPAY | PROVIDERS: Visit Provider Radiology Diagnostic Radiology | DX: R53.83 Other fatigue (principal) | CPT/HCPCS: 71045 ==

== ENCOUNTER → 2025-07-08 10:41 | Outpatient (BNV) | payer OTHER, SELFPAY | PROVIDERS: Emergency Provider Emergency Medicine; PCP Family Medicine; Visit Provider Internal Medicine | DX: R94.31 Abnormal electrocardiogram [ECG] [EKG] (principal); R53.1 Weakness | CPT/HCPCS: 93010 ==

== ENCOUNTER 2025-07-29 12:01 | Outpatient (REF) | payer OTHER, SELFPAY ==
[2025-07-29 14:01] LABS: Microalbum/Creatinine Ratio Ur 10.8 ug/mg cr (<30)
[2025-07-29 14:06] LABS: Folate 14.5 ng/mL (> or = 4.0); Vitamin B12 316 pg/mL (200-900)
[2025-07-29 14:12] LABS: Alanine Aminotransferase 26 U/L (0-31); Albumin Level 4.5 g/dL (3.5-5.0); Alkaline Phosphatase 82 U/L (39-117); Anion Gap 10 (12-20); Aspartate Amino Transferase 33 U/L (5-31); Blood Urea Nitrogen 13 mg/dL (9-16); Calcium 9.2 mg/dL (8.4-10.2); Carbon Dioxide 28 mmol/L (22-29); Chloride 108 mmol/L (96-108); Cholesterol 195 mg/dL (<200); Estimated Glomerular Filt Rate > 60; HDL Cholesterol 33 mg/dL (>40); Potassium 3.5 mmol/L (3.3-5.1); Sodium 142 mmol/L (135-145); Total Protein 7.3 g/dL (6.5-8.0); Triglycerides 222 mg/dL (<150)
[2025-07-29 15:02] LABS: Reflex LDLD? No
== END 2025-07-29 12:02 | disposition home or self-care (01) ==
LOC: HO.HHCL 12:01
PROVIDERS: PCP Family Medicine; Visit Provider Family Medicine
DX: I10 Essential (primary) hypertension (principal); E78.2 Mixed hyperlipidemia; E78.1 Pure hyperglyceridemia; E11.9 Type 2 diabetes mellitus without complications
CPT/HCPCS: 36415; 80053; 80061; 82043; 82570; 82607; 82746; 84443